=== PATIENT | female | born 1950 | race African-American/Black ===

== ENCOUNTER 2017-12-10 09:34 | Emergency (ER) | payer MEDICARE ==
[~2017-12-10] VITALS: Ht 180.3 cm; Wt 88.5 kg
--- NOTE | 2017-12-10 09:37 | Emergency Room Report ---
History of Present Illness General Chief Complaint: To Be Triaged Source: Patient, Family Member Present Illness HPI 67-year-old female with multiple areas of pain after traumatic fall 4 days ago. Patient has history of diabetes and diabetes neuropathy and "diabetic ulcers on feet." Patient states she was in a wheelchair and when she got up to her feet she fell over and packing right shoulder and right elbow on concrete ground. Complaining of pain to right shoulder, right neck, right hip and right knee and right elbow. Takes baby aspirin daily, not any other anticoagulation Has not taken any medication for pain at home Allergies: Coded Allergies: No Known Allergies (Unverified , 12/10/17) Patient History Past Medical History: DM, other - see HPI Past Surgical History: none Pertinent Family History: none Social History: Denies: smoking, alcohol use, drug use Now: No Immunizations: UTD Reviewed Nursing Documentation: PMH: Agreed, PSxH: Agreed Review of Systems All Other Systems: negative except mentioned in HPI Physical Exam Sp02 EP Interpretation: reviewed, normal General Appearance: normal inspection, well appearing, no apparent distress, alert, GCS 15, non-toxic Head: normocephalic, atraumatic Eyes: bilateral eye PERRL, bilateral eye EOMI ENT: normal ENT inspection, hearing grossly normal, normal pharynx, no angioedema, normal voice, TMs + canals normal, uvula midline, moist mucus membranes Neck: normal inspection, full range of motion, supple, thyroid normal, no meningismus, no bony tend Respiratory: normal inspection, lungs clear, normal breath sounds, no rhonchi, no respiratory distress, no retraction, no accessory muscle use, no wheezing, speaking full sentences Cardiovascular #1: regular rate, rhythm, no edema, no JVD, normal capillary refill Gastrointestinal: normal inspection, normal bowel sounds, non tender, soft, no mass, no peritonitis, non-distended, no guarding, no hernia, no pulsatile mass Genitourinary: no CVA tenderness Musculoskeletal: normal inspection, back normal, normal range of motion, no calf tenderness, pelvis stable, Ludmila's Sign negative, other - Right upper extremity: The right shoulder has full range of motion; there is some tenderness to the superior scapula. Mild tenderness to distal humerus above right elbow. Right elbow with full range of motion. No tenderness to palpation to forearm hand or wrist. There is no obvious trauma or deformity to right upper ext on visual exam. Pelvis is stable, no obvious trauma the pelvis or deformity, however there is some tenderness to proximal femur and range of motion of right hip is limited due to pain. On lateral aspect of the proximal tibia there is a 1 cm abrasion with associated tenderness to patella and proximal tibia. 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, motor strength/tone normal, cerebellar normal, normal gait, speech normal Psychiatric: normal inspection, judgement/insight normal, mood/affect normal, no suicidal/homicidal ideation, no delusions Skin: normal inspection, normal color, no rash Lymphatic: normal inspection, no adenopathy Medical Decision Making Diagnostic Impression: Primary Impression: Fall Qualified Codes: W19.XXXA - Unspecified fall, initial encounter ER Course 67-year-old female with traumatic fall 4 days ago with multiple areas of pain after a fall Fall was accidental and not related to syncope, chest pain or other symptoms. fall likely due to known diabetic neuropathy No acute fx on xrays per Radiology verbal report However on right knee xray incidental finding of ?mass in left femur - patient informed she needs outpatient MRI, followup for eval of ?tumor Recommended Tylenol only for pain with RICE ER course: Patient has remained stable during ED stay. Disposition: Patient is to be discharged to home. Prescriptions given are tylenol Patient is instructed to follow up with their primary care doctor within 5 days. Strict return precautions discussed with patient such as fever, chills, worsening/severe pain, nausea, vomiting, which may indicate severe illness. Patient verbalizes understanding and agrees with plan. Please note that this Emergency Department Report was dictated using [employer] technology software, occasionally this can lead to erroneous entry secondary to interpretation by the dictation equipment Status: improved Disposition: HOME, SELF-CARE LINDSEY GOMEZ M.D. Dec 10, 2017 09:37
--- NOTE | 2017-12-10 10:59 | Diagnostic Imaging Report ---
Indication: Pain Technique: XRAY Shoulder Compl R Comparison: None Findings: There is no acute fracture or dislocation. Rounded densities projecting adjacent to the humeral head noted suggestive of calcific tendinitis. Imaged right lung is grossly clear. No radiopaque foreign body seen. Impression: No acute fracture or dislocation. Findings suggestive of calcific tendinitis.
--- NOTE | 2017-12-10 11:02 | Diagnostic Imaging Report ---
Indication: Pain Technique: XRAY Humerus 2v R Comparison: None Findings: There is no acute fracture or dislocation. Imaged shoulder and elbow joints grossly preserved. No radiopaque foreign body seen. Findings suggestive of calcific tendinitis of the shoulder. Impression: No acute fracture or dislocation.
[2017-12-10 11:36] VITALS: BP 187/80
--- NOTE | 2017-12-10 11:39 | Diagnostic Imaging Report ---
Indication: Pain Technique: XRAY Knee 3v R Comparison: None Findings: There is no acute fracture or dislocation. Mild osteoarthrosis as manifested by joint space narrowing at the medial compartment. Atherosclerotic vascular opacification is noted. No radiopaque foreign body seen. Partially imaged in the left distal femur is a subtle sclerotic lesion with narrow zone of transition. No associated periosteal reaction or cortical abnormality identified. This lesion spans approximately 10 cm. Impression: No evidence of acute fracture or dislocation. Partially visualized lesion in the left distal femur as detailed above possibly representing an enchondroma vs low grade chondrosarcoma. Additional considerations include an area of remote bone infarct. Clinical correlation recommended. More definitive characterization with MRI recommended, which may be obtained on a nonemergent basis. Lesion needs followup. Comparison with prior exams, if available, would be helpful to assess for interval change. Findings were discussed with treating ER physician Dr. De La Cruz.
--- NOTE | 2017-12-10 11:41 | Diagnostic Imaging Report ---
Indication: Pain Technique: XRAY Hip Routine 2v+ R Comparison: None Findings: No acute fracture or dislocation. Symphysis pubis and imaged portions of the right sacroiliac joint unremarkable. Vascular calcifications noted. Clips noted projecting over the midline lower pelvis. Impression: No acute fracture or dislocation.
[2017-12-10] MEDS ORDERED: Tylenol #3 tab (300mg/30mg) ORAL ONE (11:45)
[2017-12-10 11:49] VITALS: BP 187/80
== END 2017-12-10 11:50 | disposition home or self-care (01) ==
LOC: EMR 09:50
DX: E11.40 Type 2 diabetes mellitus with diabetic neuropathy, unspecified (principal); Z79.82 Long term (current) use of aspirin; M25.561 Pain in right knee; M25.551 Pain in right hip; M25.521 Pain in right elbow; M25.511 Pain in right shoulder; W18.30XA Fall on same level, unspecified, initial encounter; Y92.9 Unspecified place or not applicable
CPT/HCPCS: 99284

== ENCOUNTER 2018-02-13 21:07 | Inpatient (IN) | payer MEDICARE ==
[~2018-02-13] VITALS: Ht 175.3 cm; Wt 86.2 kg
[2018-02-13 21:20] VITALS: BP 126/64
[2018-02-13] MEDS ORDERED: Morphine Sulfate 4mg/ml Inj IVP ONE (21:45)
[2018-02-13] MEDS ORDERED: Piperacillin/Tazobactam 3.375 GM in D5W 55 ML IV SCH (21:45)
[2018-02-13] MEDS ORDERED: Vancomycin 1.5gm/D5W 250ml 250 ML IVPB ONE (21:45)
[2018-02-13] MEDS ORDERED: Zosyn 3.375gm inj ONE (22:04)
[2018-02-13 22:15] LABS: HEMOGLOBIN 8.5 G/DL (12.0-16.0); MEAN CORPUSCULAR VOLUME 81 FL (80-99); PLATELET COUNT 275 K/UL (150-450); RED CELL DISTRIBUTION WIDTH 14.4 % (11.6-14.8); WHITE BLOOD COUNT 14.1 K/UL (4.8-10.8)
[2018-02-13 22:26] LABS: ANION GAP 10 mmol/L (5-15); BLOOD UREA NITROGEN 79 mg/dL (7-18); CALCIUM 8.6 MG/DL (8.5-10.1); CARBON DIOXIDE 28 MMOL/L (21-32); CHLORIDE 100 MMOL/L (98-107); CREATININE 3.5 MG/DL (0.55-1.30); POTASSIUM 3.4 MMOL/L (3.5-5.1); SODIUM 138 MMOL/L (136-145)
--- NOTE | 2018-02-13 22:27 | Emergency Room Report ---
History of Present Illness General Chief Complaint: General Complaint Source: Patient Present Illness HPI The patient presents with infection of her left foot. She states that this started yesterday (however the appearance is longer duration than that). She denies any fevers or chills. She has diabetic neuropathy but still feels pain. She also feels pain in her back and head. This is chronic pain that she has and is worsened. She tried taking tramadol earlier today without relief. There is drainage from the foot. She states that her tetanus is up-to-date. She states that her diabetes is relatively well controlled and glucose this morning is 160. The patient does take insulin. The patient states that she has chronic back pain and fibromyalgia. She has degenerative disc disease. There is no trauma, unilateral weakness, fevers, blood thinners, oncologic problems. She denies dysuria at this time. The patient occasionally has headaches. This is not unusual for her. Overall the patient rates the pain he 9/10 and constant. Burning pain in her back and pressure in her head. Allergies: Coded Allergies: No Known Allergies (Unverified , 12/10/17) Patient History Past Medical History: see triage record Social History: Denies: smoking Social History Narrative lives with sister Last Menstrual Period: NA Now: No Reviewed Nursing Documentation: PMH: Agreed; PSxH: Agreed Nursing Documentation-PMH Hx Hypertension: Yes Hx Diabetes: Yes Hx Neurological Problems: No - NEUROPATHY Review of Systems All Other Systems: negative except mentioned in HPI Physical Exam Vital Signs Date Time Temp Pulse Resp B/P (MAP) Pulse Ox O2 Delivery O2 Flow Rate FiO2 02/13/18 21:13 98.2 75 18 126/64 98 Room Air 98.2 Sp02 EP Interpretation: reviewed, normal General Appearance: GCS 15, mild distress - due to pain, Chronically Ill Head: normocephalic, atraumatic Eyes: bilateral eye normal inspection, bilateral eye PERRL ENT: moist mucus membranes Neck: supple Respiratory: lungs clear, normal breath sounds Cardiovascular #1: regular rate, rhythm Cardiovascular #2: 2+ radial (R), 2+ dorsalis pedis (R), 2+ dorsalis pedis (L) Gastrointestinal: normal inspection, normal bowel sounds, non tender, no mass, non-distended Musculoskeletal: normal range of motion, tender - lumbar area, no bony tenderness, SLR minimal bilat without radiation to legs Neurologic: alert, oriented x3, 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 tested, motor strength/tone normal, DTRs symmetric, speech normal, sensory deficit - diabetic neuropathy Psychiatric: mood/affect normal - in pain Skin: warm/dry, other - diabetic ulcer L metatarsal area with pus draining from deep opening some erythema and devitalized tissue with gauze or other foreign material present Medical Decision Making Diagnostic Impression: Primary Impression: Ulcer of foot due to diabetes Qualified Codes: E10.621 - Type 1 diabetes mellitus with foot ulcer; L97.528 - Non-pressure chronic ulcer of other part of left foot with other specified severity Additional Impressions: CARLOS vs CARLOS on CKD Elevated LFTs Chronic lower back pain Qualified Codes: M54.5 - Low back pain; G89.29 - Other chronic pain ER Course Diabetic patient presents with back pain and draining ulcer L foot. Ddx: sepsis , osteomyelitis, cellulitis, DKA, exacerbation of chronic back pain, opiate dependence amongst others. No red flag symptoms, though high risk with diabetes and obvious infection. Evaluation with EKG, CXR, foot x-ray and labs. Analgesia ordered and antibiotics. Wound culture obtained and wound care will be provided. EKG without injury. CXR no infiltrates. Foot with ST defect and some bony changes and possible gas. Labs with elevated WBC and ESR. Renal failure. Elevated CK and LFTs. Improved with pain medicines. Vanco, Zosyn and Flagyl begun. Wound dressed by me after cleansed by tech. Complex patient admitted medically for IV antibiotics (concern over osteomyelitis and gas forming organisms) and monitoring of renal function. Laboratory Tests Test 02/13/18 15:55 02/13/18 21:50 02/14/18 05:20 02/14/18 05:35 Urine Color Pending Urine Appearance Pending Urine pH Pending Urine Specific [place] Pending Urine Protein Pending Urine Glucose (UA) Pending Urine Ketones Pending Urine Occult Blood Pending Urine Nitrite Pending Urine Bilirubin Pending Urine Urobilinogen Pending Urine Leukocyte Esterase Pending White Blood Count 14.1 K/UL (4.8-10.8) H 16.2 K/UL (4.8-10.8) H Red Blood Count 3.20 M/UL (4.20-5.40) L 3.09 M/UL (4.20-5.40) L Hemoglobin 8.5 G/DL (12.0-16.0) L 8.4 G/DL (12.0-16.0) L Hematocrit 26.0 % (37.0-47.0) L 25.4 % (37.0-47.0) L Mean Corpuscular Volume 81 FL (80-99) 82 FL (80-99) Mean Corpuscular Hemoglobin 26.6 PG (27.0-31.0) L 27.1 PG (27.0-31.0) Mean Corpuscular Hemoglobin Concent 32.8 G/DL (32.0-36.0) 32.9 G/DL (32.0-36.0) Red Cell Distribution Width 14.4 % (11.6-14.8) 14.7 % (11.6-14.8) Platelet Count 275 K/UL (150-450) 266 K/UL (150-450) Mean Platelet Volume 8.1 FL (6.5-10.1) 8.1 FL (6.5-10.1) Neutrophils (%) (Auto) % (45.0-75.0) % (45.0-75.0) Lymphocytes (%) (Auto) % (20.0-45.0) % (20.0-45.0) Monocytes (%) (Auto) % (1.0-10.0) % (1.0-10.0) Eosinophils (%) (Auto) % (0.0-3.0) % (0.0-3.0) Basophils (%) (Auto) % (0.0-2.0) % (0.0-2.0) Prothrombin Time 12.0 SEC (9.30-11.50) H Prothrombin Time INR 1.1 (0.9-1.1) PTT 36 SEC (23-33) H Sodium Level 138 MMOL/L (136-145) 136 MMOL/L (136-145) Potassium Level 3.4 MMOL/L (3.5-5.1) L 3.5 MMOL/L (3.5-5.1) Chloride Level 100 MMOL/L (98-107) 99 MMOL/L (98-107) Carbon Dioxide Level 28 MMOL/L (21-32) 25 MMOL/L (21-32) Anion Gap 10 mmol/L (5-15) 12 mmol/L (5-15) Blood Urea Nitrogen 79 mg/dL (7-18) H 82 mg/dL (7-18) H Creatinine 3.5 MG/DL (0.55-1.30) H 3.5 MG/DL (0.55-1.30) H Estimate Glomerular Filtration Rate 15.9 mL/min (>60) 15.9 mL/min (>60) Glucose Level 154 MG/DL (74-106) H 202 MG/DL (74-106) H Lactic Acid Level 0.80 mmol/L (0.66-2.22) Calcium Level 8.6 MG/DL (8.5-10.1) 8.3 MG/DL (8.5-10.1) L Total Bilirubin 1.2 MG/DL (0.2-1.0) H 1.4 MG/DL (0.2-1.0) H Direct Bilirubin 0.9 MG/DL (0.0-0.3) H 1.0 MG/DL (0.0-0.3) H Aspartate Amino Transferase (AST) 657 U/L (15-37) H 431 U/L (15-37) H Alanine Aminotransferase (ALT) 387 U/L (12-78) H 373 U/L (12-78) H Alkaline Phosphatase 456 U/L (46-116) H 453 U/L (46-116) H Total Creatine Kinase 56 U/L (26-308) Troponin I 0.000 ng/mL (0.000-0.056) Pro-B-Type Natriuretic Peptide 2769 pg/mL (0-125) H Total Protein 7.2 G/DL (6.4-8.2) 7.1 G/DL (6.4-8.2) Albumin 1.9 G/DL (3.4-5.0) L 1.9 G/DL (3.4-5.0) L Globulin 5.3 g/dL 5.2 g/dL Albumin/Globulin Ratio 0.4 (1.0-2.7) L 0.4 (1.0-2.7) L Differential Total Cells Counted 100 Neutrophils % (Manual) 83 % (45-75) H Lymphocytes % (Manual) 4 % (20-45) L Monocytes % (Manual) 8 % (1-10) Eosinophils % (Manual) 1 % (0-3) Basophils % (Manual) 0 % (0-2) Band Neutrophils 4 % (0-8) Platelet Estimate Adequate Platelet Morphology Normal Target Cells 1+ Jamey Cells 1+ Acanthocytes (Spur Cells) 1+ Erythrocyte Sedimentation Rate 121 MM/HR (0-30) H Hemoglobin A1c 9.0 % (4.3-6.0) H C-Reactive Protein, Quantitative 28.3 mg/dL (0.00-0.90) H Random Vancomycin Level 21.4 ug/mL Hepatitis A IgM Antibody Pending Hepatitis B Surface Antigen Pending Hepatitis B Core IgM Antibody Pending Hepatitis C Antibody Pending Test 02/14/18 16:25 C-Reactive Protein, Quantitative 14.4 mg/dL (0.00-0.90) H EKG Diagnostic Results Rate: normal Rhythm: NSR ST Segments: no acute changes Rhythm Strip Diag. Results EP Interpretation: yes Rhythm: NSR, no PVC's, no ectopy Chest X-Ray Diagnostic Results Chest X-Ray Diagnostic Results : Chest X-Ray Ordered: Yes # of Views/Limited/Complete: 1 View Indication: Other Interpretation: no consolidation, no effusion, no pneumothorax Impression: Other Electronically Signed by: Navid Robertson MD Other X-Ray Diagnostic Results Other X-Ray Diagnostic Results : X-Ray ordered: L foot # of Views/Limited Vs Complete: 3 View Indication: Other EP Interpretation: Yes Interpretation: no dislocation, no soft tissue swelling, no fractures, other - gas, st defect, possible osteo Impression: Other Electronically Signed by: Navid Robertson MD Last Vital Signs Date Time Temp Pulse Resp B/P (MAP) Pulse Ox O2 Delivery O2 Flow Rate FiO2 02/13/18 22:06 98.2 02/13/18 21:20 88 18 126/64 98 Room Air Disposition: ADMITTED INPATIENT Condition: Serious Referrals: NON PHYSICIAN (PCP) Navid Robertson M.D. Feb 13, 2018 22:27
[2018-02-13 22:35] LABS: INR 1.1 (0.9-1.1)
[2018-02-13 22:44] LABS: ALANINE AMINOTRANSFERASE 387 U/L (12-78); ALBUMIN 1.9 G/DL (3.4-5.0); ALBUMIN/GLOBULIN RATIO 0.4 (1.0-2.7); ALKALINE PHOSPHATASE 456 U/L (46-116); ASPARTATE AMINO TRANSFERASE 657 U/L (15-37); BILIRUBIN,TOTAL 1.2 MG/DL (0.2-1.0); CREATINE KINASE 56 U/L (26-308)
[2018-02-13 22:45] LABS: BILIRUBIN,DIRECT 0.9 MG/DL (0.0-0.3)
[2018-02-13 22:54] VITALS: BP 121/59
[2018-02-13] MEDS ORDERED: ATORVASTATIN CA20 MG ORAL (22:58)
[2018-02-13] MEDS ORDERED: AMLODIPINE BES2.5 MG ORAL (22:58)
[2018-02-13] MEDS ORDERED: CATAPRES0.1 MG ORAL (22:58)
[2018-02-13] MEDS ORDERED: TRAMADOL HCL50 MG ORAL (22:58)
[2018-02-13] MEDS ORDERED: LEVEMIR FL100 UNIT/1 SUBQ (22:58)
[2018-02-13] MEDS ORDERED: NOVOLOG100 UNIT/3 SUBQ (22:58)
[2018-02-14] VITALS (7 sets, daily range): BP systolic 111–138; BP diastolic 59–75
[2018-02-14] MEDS ORDERED: Acetaminophen 650 MG SUPP RECTAL PRN ×2
[2018-02-14] MEDS ORDERED: Mylanta II UD 30ml ORAL PRN
[2018-02-14] MEDS ORDERED: Milk of Magnesia 30ml Ud ORAL PRN
[2018-02-14] MEDS ORDERED: Morphine Sulfate 4mg/ml Inj IVP PRN
[2018-02-14] MEDS: Morphine Sulfate 2mg/ml Inj IVP PRN ×3 (02:09→14:22)
[2018-02-14] MEDS ORDERED: Zosyn 3.375gm inj ONE (05:44)
[2018-02-14] MEDS: Piperacillin/Tazobactam 3.375 GM in NS 110 ML IVPB SCH ×2 (05:53→13:28)
[2018-02-14 07:35] LABS: HEMATOCRIT 25.4 % (37.0-47.0); HEMOGLOBIN 8.4 G/DL (12.0-16.0); MEAN CORPUSCULAR VOLUME 82 FL (80-99); PLATELET COUNT 266 K/UL (150-450); RED BLOOD COUNT 3.09 M/UL (4.20-5.40); RED CELL DISTRIBUTION WIDTH 14.7 % (11.6-14.8); WHITE BLOOD COUNT 16.2 K/UL (4.8-10.8)
[2018-02-14 07:53] LABS: ALANINE AMINOTRANSFERASE 373 U/L (12-78); ALBUMIN 1.9 G/DL (3.4-5.0); ALBUMIN/GLOBULIN RATIO 0.4 (1.0-2.7); ALKALINE PHOSPHATASE 453 U/L (46-116); ANION GAP 12 mmol/L (5-15); ASPARTATE AMINO TRANSFERASE 431 U/L (15-37); BILIRUBIN,TOTAL 1.4 MG/DL (0.2-1.0); BLOOD UREA NITROGEN 82 mg/dL (7-18); CALCIUM 8.3 MG/DL (8.5-10.1); CARBON DIOXIDE 25 MMOL/L (21-32); CHLORIDE 99 MMOL/L (98-107); CREATININE 3.5 MG/DL (0.55-1.30); POTASSIUM 3.5 MMOL/L (3.5-5.1); SODIUM 136 MMOL/L (136-145)
[2018-02-14] MEDS: Heparin 5000 units/ml inj SUBQ SCH ×2 (08:40→20:43)
[2018-02-14] MEDS ORDERED: Docusate 100mg cap ORAL SCH (09:00)
--- NOTE | 2018-02-14 09:46 | Diagnostic Imaging Report ---
Indication: Chest pain Technique: One view of the chest Comparison: none Findings: Inspiration is suboptimal, with some atelectasis of the right lung base present. The heart is borderline enlarged. The aorta is tortuous and calcified. Impression: Right basilar atelectasis Portable and cardiomegaly No acute process otherwise This agrees with the preliminary interpretation provided by the emergency room physician
--- NOTE | 2018-02-14 10:10 | Diagnostic Imaging Report ---
Indication: Pain Technique: 3 views left foot Comparison: none Findings: There is a soft tissue ulcer medial to the first metatarsal phalangeal joint. No underlying osseous erosions. There is evidence of prior bunionectomy and possible first metatarsal osteotomy. 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 There is evidence of possible prior fifth proximal phalangeal head osteotomy. Unusual chronic appearing erosive changes of the terminal tuft of the second distal phalanx are noted. No acute fractures. No dislocations. Impression: Evidence of medial soft tissue ulcer. No definite plain radiographic evidence of osteomyelitis. However, sensitivity of plain radiographs is limited, and MRI should be considered if there is high clinical suspicion Chronic and postsurgical changes, as described. Arch giuseppe ER prelim
--- NOTE | 2018-02-14 11:36 | Consultation ---
Consult Note Assessment/Plan A/ 1) Cellulitis left foot 2) DM foot ulcers 3) DM neuropathy 4) HAV P/ 1) Cont vanco/zosyn. Wound cultures left foot ordered. Rec ID consult 2) Art Ultz ordered 3) MRI left foot ordered 4) Will follow Thank you I returned later in day to see patient. Results of all studies noted. Patient has severe PAD and gas in tissue. Seen by Dr Bedolla. Patient needs angio and may end up on dialysis. She may wish to go back to [place] for her care, but has discussed with daughter and will stay. May have ins issues to stay for treatment. Perform a thorough wash out of her left foot and packed it. Patient was advised that she is at high risk to lose her extremity. She understands. Lawson Ch DPM Feb 14, 2018 11:36
--- NOTE | 2018-02-14 12:42 | History and Physical ---
History of Present Illness General Date patient seen: Feb 14, 2018 Time patient seen: 12:42 Reason for Hospitalization: Diabetic foot ulcer Present Illness HPI 67y/o female with pmh of uncontrolled DM2 on insulin c/b neuropathy, HTN, HLD who presents with L>R foot wounds/ulcers. Pt states she has been having worsening symptoms for the past few days. Notes foul drainage from L foot wound. Notes increased L foot pain. Denies f/c, n/v, d/c, chest pain, SOB, abd pain. In ED, pt noted to have L foot ulcer likely 2/2 diabetic. L foot x-ray showed medial soft tissue ulcer. Labs showed leukocytosis to 14K. Pt given vanco, zosyn and flagyl in ER. Labs also showed SCr 3.5, unknown baseline. Pt also with elevated LFTs. O/n pt noted to be retaining urine, fried placed. Allergies: Coded Allergies: No Known Allergies (Unverified , 12/10/17) Medication History Scheduled Amlodipine Besylate* (Amlodipine Besylate*), 2.5 MG ORAL DAILY, (Reported) Atorvastatin Calcium* (Atorvastatin Calcium*), 20 MG ORAL BEDTIME, (Reported) Clonidine Hcl* (Catapres*), 0.1 MG ORAL EVERY 6 HOURS, (Reported) Insulin Aspart* (Novolog*), 0 SUBQ DAILY, (Reported) Scheduled PRN Tramadol Hcl* (Ultram*), 50 MG ORAL Q6H PRN for For Pain, (Reported) Miscellaneous Medications Insulin Detemir (Levemir Flexpen), 0 SUBQ, (Reported) Patient History History Provided By: Patient, Medical Record Healthcare decision maker Resuscitation status Advanced Directive on File Past Medical/Surgical History Past Medical/Surgical History: (1) Insulin dependent diabetes mellitus (2) Diabetic neuropathy (3) Urinary retention (4) HTN (hypertension) (5) HLD (hyperlipidemia) (6) Chronic lower back pain (7) Fibromyalgia Social History Social History: (1) Pt lives in [place] but visiting family here in [place] Review of Systems Constitutional: Reports: no symptoms Eye: Reports: no symptoms ENT: Reports: no symptoms Respiratory: Reports: no symptoms Cardiovascular: Reports: no symptoms Gastrointestinal: Reports: no symptoms Genitourinary: Reports: no symptoms Musculoskeletal: Reports: back pain, joint pain, joint swelling, muscle pain Skin: Reports: lesions Psychiatric: Reports: no symptoms Neurological: Reports: no symptoms Endocrine: Reports: no symptoms Hematologic/Lymphatic: Reports: no symptoms Physical Exam Physical Exam Narrative General: alert, cooperative, no distress, appears stated age Head: normocephalic, without obvious abnormality, atraumatic Eyes: conjunctivae/corneas clear. PERRL, EOM's intact Throat: lips, mucosa, and tongue normal. MMM Neck: supple, symmetrical, trachea midline, and no JVD Lungs: clear to auscultation bilaterally Heart: regular rate and rhythm, S1, S2 normal, no murmur, click, rub or gallop Abdomen: soft, non-tender, non-distended, bowel sounds normal; no masses or organomegaly Extremities: extremities normal, atraumatic, no cyanosis or edema Pulses: 2+ and symmetric Skin: +L foot ulcer w/ foul discharge, some surrounding erythema/edema/warmth/ TTP, +R foot wound w/ no drainage noted Neurologic: grossly normal, no focal deficits Last 24 Hour Vital Signs Date Time Temp Pulse Resp B/P (MAP) Pulse Ox O2 Delivery O2 Flow Rate FiO2 02/14/18 12:18 97.1 76 20 118/59 99 97.1 02/14/18 10:39 97.4 02/14/18 08:39 75 132/60 02/14/18 08:27 97.4 75 20 132/60 92 97.4 02/14/18 05:36 Room Air 02/14/18 05:30 97.1 70 20 138/64 96 Nasal Cannula 97.1 02/14/18 02:39 96.7 02/14/18 02:19 Room Air 02/14/18 02:09 96.7 02/14/18 01:37 96.7 74 20 124/66 96 Room Air 96.7 02/14/18 01:05 97.8 70 14 111/75 96 Room Air 97.8 02/14/18 00:15 70 14 111/75 96 Room Air 02/13/18 22:54 97.8 71 15 121/59 96 Room Air 97.8 02/13/18 22:32 98.2 02/13/18 22:06 98.2 02/13/18 21:20 98.2 88 18 126/64 98 Room Air 98.2 02/13/18 21:13 98.2 75 18 126/64 98 Room Air 98.2 Intake and Output 02/13/18 02/14/18 19:00 07:00 Intake Total 1155 ml Output Total 0 ml Balance 1155 ml IV Total 1155 ml Output Urine Total 0 ml Laboratory Tests Test 02/13/18 21:50 02/14/18 05:20 White Blood Count 14.1 K/UL (4.8-10.8) H 16.2 K/UL (4.8-10.8) H Red Blood Count 3.20 M/UL (4.20-5.40) L 3.09 M/UL (4.20-5.40) L Hemoglobin 8.5 G/DL (12.0-16.0) L 8.4 G/DL (12.0-16.0) L Hematocrit 26.0 % (37.0-47.0) L 25.4 % (37.0-47.0) L Mean Corpuscular Volume 81 FL (80-99) 82 FL (80-99) Mean Corpuscular Hemoglobin 26.6 PG (27.0-31.0) L 27.1 PG (27.0-31.0) Mean Corpuscular Hemoglobin Concent 32.8 G/DL (32.0-36.0) 32.9 G/DL (32.0-36.0) Red Cell Distribution Width 14.4 % (11.6-14.8) 14.7 % (11.6-14.8) Platelet Count 275 K/UL (150-450) 266 K/UL (150-450) Mean Platelet Volume 8.1 FL (6.5-10.1) 8.1 FL (6.5-10.1) Neutrophils (%) (Auto) % (45.0-75.0) % (45.0-75.0) Lymphocytes (%) (Auto) % (20.0-45.0) % (20.0-45.0) Monocytes (%) (Auto) % (1.0-10.0) % (1.0-10.0) Eosinophils (%) (Auto) % (0.0-3.0) % (0.0-3.0) Basophils (%) (Auto) % (0.0-2.0) % (0.0-2.0) Prothrombin Time 12.0 SEC (9.30-11.50) H Prothromb Time International Ratio 1.1 (0.9-1.1) Activated Partial Thromboplast Time 36 SEC (23-33) H Sodium Level 138 MMOL/L (136-145) 136 MMOL/L (136-145) Potassium Level 3.4 MMOL/L (3.5-5.1) L 3.5 MMOL/L (3.5-5.1) Chloride Level 100 MMOL/L (98-107) 99 MMOL/L (98-107) Carbon Dioxide Level 28 MMOL/L (21-32) 25 MMOL/L (21-32) Anion Gap 10 mmol/L (5-15) 12 mmol/L (5-15) Blood Urea Nitrogen 79 mg/dL (7-18) H 82 mg/dL (7-18) H Creatinine 3.5 MG/DL (0.55-1.30) H 3.5 MG/DL (0.55-1.30) H Estimat Glomerular Filtration Rate 15.9 mL/min (>60) 15.9 mL/min (>60) Glucose Level 154 MG/DL (74-106) H 202 MG/DL (74-106) H Lactic Acid Level 0.80 mmol/L (0.66-2.22) Calcium Level 8.6 MG/DL (8.5-10.1) 8.3 MG/DL (8.5-10.1) L Total Bilirubin 1.2 MG/DL (0.2-1.0) H 1.4 MG/DL (0.2-1.0) H Direct Bilirubin 0.9 MG/DL (0.0-0.3) H 1.0 MG/DL (0.0-0.3) H Aspartate Amino Transf (AST/SGOT) 657 U/L (15-37) H 431 U/L (15-37) H Alanine Aminotransferase (ALT/SGPT) 387 U/L (12-78) H 373 U/L (12-78) H Alkaline Phosphatase 456 U/L (46-116) H 453 U/L (46-116) H Total Creatine Kinase 56 U/L (26-308) Troponin I 0.000 ng/mL (0.000-0.056) Pro-B-Type Natriuretic Peptide 2769 pg/mL (0-125) H Total Protein 7.2 G/DL (6.4-8.2) 7.1 G/DL (6.4-8.2) Albumin 1.9 G/DL (3.4-5.0) L 1.9 G/DL (3.4-5.0) L Globulin 5.3 g/dL 5.2 g/dL Albumin/Globulin Ratio 0.4 (1.0-2.7) L 0.4 (1.0-2.7) L Differential Total Cells Counted 100 Neutrophils % (Manual) 83 % (45-75) H Lymphocytes % (Manual) 4 % (20-45) L Monocytes % (Manual) 8 % (1-10) Eosinophils % (Manual) 1 % (0-3) Basophils % (Manual) 0 % (0-2) Band Neutrophils 4 % (0-8) Platelet Estimate Adequate Platelet Morphology Normal Target Cells 1+ Jamey Cells 1+ Acanthocytes 1+ Erythrocyte Sedimentation Rate 121 MM/HR (0-30) H Hemoglobin A1c 9.0 % (4.3-6.0) H C-Reactive Protein, Quantitative 28.3 mg/dL (0.00-0.90) H Random Vancomycin Level 21.4 ug/mL Height (Feet): 5 Height (Inches): 11.00 Weight (Pounds): 190 Medications Current Medications Medications (Trade) Dose Ordered Sig/Marlena Route PRN Reason Start Time Stop Time Status Last Admin Dose Admin Acetaminophen (Tylenol) 650 mg Q4H PRN ORAL Mild Pain (Pain Scale 1-3) 02/14/18 00:00 03/16/18 00:00 Acetaminophen (Tylenol) 650 mg Q4H PRN ORAL fever 02/14/18 00:00 03/16/18 00:00 Acetaminophen (Tylenol) 650 mg Q4H PRN RECTAL Mild Pain (Pain Scale 1-3) 02/14/18 00:00 03/16/18 00:00 Acetaminophen (Tylenol) 650 mg Q4H PRN RECTAL fever 02/14/18 00:00 03/16/18 00:00 Al Hydroxide/Mg Hydroxide (Mylanta II) 30 ml Q6H PRN ORAL dyspepsia 02/14/18 00:00 03/16/18 00:00 Amlodipine Besylate (Norvasc) 2.5 mg DAILY ORAL 02/14/18 09:00 03/16/18 08:59 02/14/18 08:39 Atorvastatin Calcium (Lipitor) 20 mg BEDTIME ORAL 02/14/18 21:00 03/16/18 20:59 Bisacodyl (Dulcolax) 10 mg HSPRN PRN RECTAL Constipation 02/14/18 00:00 03/16/18 00:00 Clonidine HCl (Catapres Tab) 0.1 mg Q6H PRN ORAL sbp>160 02/14/18 00:00 03/16/18 00:00 Dextrose (Dextrose 50%) STAT PRN IV Hypoglycemia 02/14/18 00:00 03/16/18 00:00 Diphenhydramine HCl (Benadryl) 25 mg Q6H PRN ORAL Itching/Pruritis 02/14/18 00:00 03/16/18 00:00 Docusate Sodium (Colace) 100 mg EVERY 12 HOURS ORAL 02/14/18 09:00 03/16/18 08:59 02/14/18 08:40 Heparin Sodium (Porcine) (Heparin 5000 units/ml) 5,000 units EVERY 12 HOURS SUBQ 02/14/18 09:00 03/16/18 08:59 02/14/18 08:40 Magnesium Hydroxide (Mom) 30 ml HSPRN PRN ORAL Constipation 02/14/18 00:00 03/16/18 00:00 Morphine Sulfate (Morphine Sulfate) 2 mg Q3H PRN IVP Moderate Pain (Pain Scale 4-6) 02/14/18 00:00 02/21/18 00:00 02/14/18 10:39 Morphine Sulfate (Morphine Sulfate) 4 mg Q3H PRN IVP Severe Pain (Pain Scale 7-10) 02/14/18 00:00 02/21/18 00:00 Ondansetron HCl (Zofran) 4 mg Q6H PRN IVP Nausea & Vomiting 02/14/18 00:00 03/16/18 00:00 Piperacillin Sod/ Tazobactam Sod 3.375 gm/Sodium Chloride 110 ml @ 27.5 mls/hr EVERY 8 HOURS IVPB 02/14/18 06:00 02/19/18 05:59 02/14/18 05:53 Vancomycin HCl (Vanco rx to dose) 1 ea DAILY PRN MISC Per rx protocol 02/14/18 00:15 03/16/18 00:14 Assessment/Plan Problem List: (1) L>R foot diabetic ulcers (2) Cellulitis of left lower extremity ICD Codes: L03.116 - Cellulitis of left lower limb SNOMED: 884215167 (3) CARLOS vs CARLOS on CKD (4) Elevated LFTs ICD Codes: R79.89 - Other specified abnormal findings of blood chemistry SNOMED: 509184288, 196669784 (5) Urinary retention Assessment & Plan: Possibly 2/2 neurogenic bladder given diabetes ICD Codes: R33.9 - Retention of urine, unspecified SNOMED: 881116792 (6) Insulin dependent diabetes mellitus ICD Codes: E11.9 - Type 2 diabetes mellitus without complications; Z79.4 - technician terminal and repeater (current) use of insulin SNOMED: 49645779 (7) Diabetic neuropathy ICD Codes: E11.40 - Type 2 diabetes mellitus with diabetic neuropathy, unspecified SNOMED: 89444765, 724026715, 964141679 (8) HTN (hypertension) ICD Codes: I10 - Essential (primary) hypertension SNOMED: 26720299 (9) HLD (hyperlipidemia) ICD Codes: E78.5 - Hyperlipidemia, unspecified SNOMED: 09109368 Status: stable Assessment/Plan Admit inpt Podiatry and ID consulted Empiric IV vanco and zosyn for now F/u cultures Trend CBC Wound care per podiatry Check MRI L foot Check arterial duplex BLE Levemir 30U daily ERYN Check A1C Hold statin given elevated LFTs Check hepatitis panel, U/S abd Trend LFTs Renal consulted given elevated SCr, unclear baseline Check U/A, urine lytes, renal U/S Cont fried given urinary retention Trend BMP DVT ppx: HSQ, SCDs D/w pt, RN, SW/CM, ID, podiatry regarding mgmt and dispo nAgel Corbin M.D. Feb 14, 2018 12:42
--- NOTE | 2018-02-14 13:39 | Infectious Diseases Prog Note ---
Assessment/Plan Assessment/Plan Full consult dictated: A) 1) left foot wound infection/ulcer infection/cellulitis, ? abscess, ? osteo, leukocytosis, ? sepsis 2) pmg noted 3) allergies - nkda P) 1) zosyn and vancomycin 2) check labs, wc, MRI 3) thank you Subjective Allergies: Coded Allergies: No Known Allergies (Unverified , 12/10/17) Objective Vital Signs Last 24 Hour Vital Signs Date Time Temp Pulse Resp B/P (MAP) Pulse Ox O2 Delivery O2 Flow Rate FiO2 02/14/18 12:18 97.1 76 20 118/59 99 97.1 02/14/18 11:09 97.1 02/14/18 10:39 97.4 02/14/18 08:39 75 132/60 02/14/18 08:27 97.4 75 20 132/60 92 97.4 02/14/18 05:36 Room Air 02/14/18 05:30 97.1 70 20 138/64 96 Nasal Cannula 97.1 02/14/18 02:19 Room Air 02/14/18 02:09 96.7 02/14/18 01:37 96.7 74 20 124/66 96 Room Air 96.7 02/14/18 01:05 97.8 70 14 111/75 96 Room Air 97.8 02/14/18 00:15 70 14 111/75 96 Room Air 02/13/18 22:54 97.8 71 15 121/59 96 Room Air 97.8 02/13/18 22:32 98.2 02/13/18 22:06 98.2 02/13/18 21:20 98.2 88 18 126/64 98 Room Air 98.2 02/13/18 21:13 98.2 75 18 126/64 98 Room Air 98.2 Height (Feet): 5 Height (Inches): 11.00 Weight (Pounds): 190 Laboratory Tests Test 02/13/18 21:50 02/14/18 05:20 White Blood Count 14.1 K/UL (4.8-10.8) H 16.2 K/UL (4.8-10.8) H Red Blood Count 3.20 M/UL (4.20-5.40) L 3.09 M/UL (4.20-5.40) L Hemoglobin 8.5 G/DL (12.0-16.0) L 8.4 G/DL (12.0-16.0) L Hematocrit 26.0 % (37.0-47.0) L 25.4 % (37.0-47.0) L Mean Corpuscular Volume 81 FL (80-99) 82 FL (80-99) Mean Corpuscular Hemoglobin 26.6 PG (27.0-31.0) L 27.1 PG (27.0-31.0) Mean Corpuscular Hemoglobin Concent 32.8 G/DL (32.0-36.0) 32.9 G/DL (32.0-36.0) Red Cell Distribution Width 14.4 % (11.6-14.8) 14.7 % (11.6-14.8) Platelet Count 275 K/UL (150-450) 266 K/UL (150-450) Mean Platelet Volume 8.1 FL (6.5-10.1) 8.1 FL (6.5-10.1) Neutrophils (%) (Auto) % (45.0-75.0) % (45.0-75.0) Lymphocytes (%) (Auto) % (20.0-45.0) % (20.0-45.0) Monocytes (%) (Auto) % (1.0-10.0) % (1.0-10.0) Eosinophils (%) (Auto) % (0.0-3.0) % (0.0-3.0) Basophils (%) (Auto) % (0.0-2.0) % (0.0-2.0) Prothrombin Time 12.0 SEC (9.30-11.50) H Prothromb Time International Ratio 1.1 (0.9-1.1) Activated Partial Thromboplast Time 36 SEC (23-33) H Sodium Level 138 MMOL/L (136-145) 136 MMOL/L (136-145) Potassium Level 3.4 MMOL/L (3.5-5.1) L 3.5 MMOL/L (3.5-5.1) Chloride Level 100 MMOL/L (98-107) 99 MMOL/L (98-107) Carbon Dioxide Level 28 MMOL/L (21-32) 25 MMOL/L (21-32) Anion Gap 10 mmol/L (5-15) 12 mmol/L (5-15) Blood Urea Nitrogen 79 mg/dL (7-18) H 82 mg/dL (7-18) H Creatinine 3.5 MG/DL (0.55-1.30) H 3.5 MG/DL (0.55-1.30) H Estimat Glomerular Filtration Rate 15.9 mL/min (>60) 15.9 mL/min (>60) Glucose Level 154 MG/DL (74-106) H 202 MG/DL (74-106) H Lactic Acid Level 0.80 mmol/L (0.66-2.22) Calcium Level 8.6 MG/DL (8.5-10.1) 8.3 MG/DL (8.5-10.1) L Total Bilirubin 1.2 MG/DL (0.2-1.0) H 1.4 MG/DL (0.2-1.0) H Direct Bilirubin 0.9 MG/DL (0.0-0.3) H 1.0 MG/DL (0.0-0.3) H Aspartate Amino Transf (AST/SGOT) 657 U/L (15-37) H 431 U/L (15-37) H Alanine Aminotransferase (ALT/SGPT) 387 U/L (12-78) H 373 U/L (12-78) H Alkaline Phosphatase 456 U/L (46-116) H 453 U/L (46-116) H Total Creatine Kinase 56 U/L (26-308) Troponin I 0.000 ng/mL (0.000-0.056) Pro-B-Type Natriuretic Peptide 2769 pg/mL (0-125) H Total Protein 7.2 G/DL (6.4-8.2) 7.1 G/DL (6.4-8.2) Albumin 1.9 G/DL (3.4-5.0) L 1.9 G/DL (3.4-5.0) L Globulin 5.3 g/dL 5.2 g/dL Albumin/Globulin Ratio 0.4 (1.0-2.7) L 0.4 (1.0-2.7) L Differential Total Cells Counted 100 Neutrophils % (Manual) 83 % (45-75) H Lymphocytes % (Manual) 4 % (20-45) L Monocytes % (Manual) 8 % (1-10) Eosinophils % (Manual) 1 % (0-3) Basophils % (Manual) 0 % (0-2) Band Neutrophils 4 % (0-8) Platelet Estimate Adequate Platelet Morphology Normal Target Cells 1+ Jamey Cells 1+ Acanthocytes 1+ Erythrocyte Sedimentation Rate 121 MM/HR (0-30) H Hemoglobin A1c 9.0 % (4.3-6.0) H C-Reactive Protein, Quantitative 28.3 mg/dL (0.00-0.90) H Random Vancomycin Level 21.4 ug/mL Current Medications Medications (Trade) Dose Ordered Sig/Marlena Route PRN Reason Start Time Stop Time Status Last Admin Dose Admin Acetaminophen (Tylenol) 650 mg Q4H PRN ORAL Mild Pain (Pain Scale 1-3) 02/14/18 00:00 03/16/18 00:00 Acetaminophen (Tylenol) 650 mg Q4H PRN ORAL fever 02/14/18 00:00 03/16/18 00:00 Acetaminophen (Tylenol) 650 mg Q4H PRN RECTAL Mild Pain (Pain Scale 1-3) 02/14/18 00:00 03/16/18 00:00 Acetaminophen (Tylenol) 650 mg Q4H PRN RECTAL fever 02/14/18 00:00 03/16/18 00:00 Al Hydroxide/Mg Hydroxide (Mylanta II) 30 ml Q6H PRN ORAL dyspepsia 02/14/18 00:00 03/16/18 00:00 Amlodipine Besylate (Norvasc) 2.5 mg DAILY ORAL 02/14/18 09:00 03/16/18 08:59 02/14/18 08:39 Atorvastatin Calcium (Lipitor) 20 mg BEDTIME ORAL 02/14/18 21:00 03/16/18 20:59 Bisacodyl (Dulcolax) 10 mg HSPRN PRN RECTAL Constipation 02/14/18 00:00 03/16/18 00:00 Clonidine HCl (Catapres Tab) 0.1 mg Q6H PRN ORAL sbp>160 02/14/18 00:00 03/16/18 00:00 Dextrose (Dextrose 50%) STAT PRN IV Hypoglycemia 02/14/18 00:00 03/16/18 00:00 Diphenhydramine HCl (Benadryl) 25 mg Q6H PRN ORAL Itching/Pruritis 02/14/18 00:00 03/16/18 00:00 Docusate Sodium (Colace) 100 mg EVERY 12 HOURS ORAL 02/14/18 09:00 03/16/18 08:59 02/14/18 08:40 Heparin Sodium (Porcine) (Heparin 5000 units/ml) 5,000 units EVERY 12 HOURS SUBQ 02/14/18 09:00 03/16/18 08:59 02/14/18 08:40 Magnesium Hydroxide (Mom) 30 ml HSPRN PRN ORAL Constipation 02/14/18 00:00 03/16/18 00:00 Morphine Sulfate (Morphine Sulfate) 2 mg Q3H PRN IVP Moderate Pain (Pain Scale 4-6) 02/14/18 00:00 02/21/18 00:00 02/14/18 10:39 Morphine Sulfate (Morphine Sulfate) 4 mg Q3H PRN IVP Severe Pain (Pain Scale 7-10) 02/14/18 00:00 02/21/18 00:00 Ondansetron HCl (Zofran) 4 mg Q6H PRN IVP Nausea & Vomiting 02/14/18 00:00 03/16/18 00:00 Piperacillin Sod/ Tazobactam Sod 3.375 gm/Sodium Chloride 110 ml @ 27.5 mls/hr EVERY 8 HOURS IVPB 02/14/18 06:00 02/19/18 05:59 02/14/18 13:28 Vancomycin HCl (Vanco rx to dose) 1 ea DAILY PRN MISC Per rx protocol 02/14/18 00:15 03/16/18 00:14 CHAPITO DENISE Feb 14, 2018 13:39
--- NOTE | 2018-02-14 14:18 | Diagnostic Imaging Report ---
APPROVED REPORT CPT Code: 57239 Symptoms Comments: Pain RIGHT LEG: Common femoral artery waveform analysis is within normal limits at rest. Color flow duplex sonography mild reveals calcification throughout the superficial femoral artery. A mild (30-50%) stenosis is seen in the proximal superficial femoral artery. There is no evidence of occlusion within this segment. The tibioperoneal trunk is patent. The anterior, peroneal, distal posterior and dorsalis pedis arteries are also mildly calcified. The Doppler tibial artery waveform analysis is compatible with minimal ischemia at rest. LEFT LEG: Color flow duplex sonography reveals a mild (30-50%) stenosis in the common femoral artery. The Imaging also reveals an occlusion in the mid superficial femoral artery. Reconstitution is seen in the distal superficial femoral artery. The popliteal artery is patent. The tibioperoneal trunk was not well visualized. The posterior tibial, anterior tibial and dorsalis pedis arteries are also mildly calcified. A mild (30-50%) stenosis is seen also in the proximal dorsalis pedis artery. The Doppler tibial artery waveform analysis is compatible with severe ischemia at rest.
[2018-02-14] MEDS: Levemir Flexpen SUBQ SCH ×2 (16:18→16:35)
[2018-02-14] MEDS: NovoLOG Insulin Flexpen SUBQ SCH ×2 (16:27→20:43)
--- NOTE | 2018-02-14 16:42 | Consultation ---
Consult Note Consult Note asked to eval for renal failure The patient presents with infection of her left foot. She states that she started yesterday however the appearance is longer than that. She denies any fevers or chills. She has diabetic neuropathy but still feels pain. She also feels pain in her back and had. This is chronic pain that she has is worsened. She tried taking tramadol earlier today without relief. There is drainage from the foot. She states that her tetanus is up-to-date. She states that her diabetes is relatively well controlled and glucose this morning is 160. The patient does take insulin. The patient states that she has chronic back pain and fibromyalgia. She has degenerative disc disease. There is no trauma, unilateral weakness, fevers, blood thinners, oncologic problems. She denies dysuria at this time. The patient occasionally has headaches. This is not unusual for her. Overall the patient rates the pain he 29/10 and constant. Burning pain in her back and pressure in her head. Assessment/Plan left foot wound infection/ulcer infection/cellulitis, ? abscess, ? osteo, leukocytosis, ? sepsis Renal failure likely acute on Chronic Urinary retention: 500cc Urine after fried Anemia , etiology?? DM Elevated LFTs HypoAlbuminemia ? NS Keep BP and BS in check slow hydrate avoid Nephrotoxics monitor renal parameters per orders TOLU GRIFFITH Feb 14, 2018 16:42
[2018-02-14] MEDS: Docusate 100mg cap ORAL SCH (17:15)
--- NOTE | 2018-02-14 17:17 | Diagnostic Imaging Report ---
Abnormal: Foot pain, infection, open wound ball of foot Technique: Sagittal, axial, and coronal T1 and fast spin echo and fast spin echo STIR images obtained of the forefoot. Comparison: Reference made to plain radiograph 02/13/2018 Findings: Motion artifact results in some image degradation Markedly increased STIR signal is seen within the first proximal phalanx. There is subtle decreased T1 signal, particularly at the base of the first proximal phalanx. A signal defect within the medullary space paralleling the bone is of uncertain significance, may represent an old surgical screw hole given plain radiographic evidence of prior first metatarsal osteotomy. There is subtle increased STIR signal and subtle decreased T1 signal involving the first metatarsal head. Normal T1 and STIR signal are seen in the distal phalanx There is considerable edema of the surrounding soft tissues. There is a suggestion of a discrete fluid collection over the dorsum of the first metatarsal phalangeal joint. This measures approximately 3.8 cm in length by 0.7 cm deep by 2.6 cm transverse. This also extends medially to the joint. There is also suggestion of a soft tissue ulceration at the plantar aspect of the soft tissues medial to the metatarsal phalangeal joint. Signal voids which may represent gas bubbles are seen in the soft tissues of the dorsal and plantar soft tissues adjacent to the first metatarsal. No other significant marrow signal abnormality is demonstrated. In addition to the edema of the great toe, there is more generalized soft tissue edema, primarily of the subcutaneous fat but also extending into the musculotendinous compartments diffusely and circumferentially along the forefoot. Impression: Somewhat limited exam, due to motion artifact Abnormal STIR and T1 signal within the first proximal phalanx and head of the first metatarsal. This is worrisome for osteomyelitis Evidence of soft tissue cellulitis of the first digit with an inferomedial soft tissue ulcer adjacent to the first metatarsophalangeal joint. More generalized edema of the forefoot also is demonstrated. More localized fluid collection dorsal to the first metatarsophalangeal joint could represent a small soft tissue abscess Small signal voids in the soft tissues adjacent to the first metatarsal could represent gas bubbles and therefore raise concern for infection with gas-forming organism Findings discussed by phone with Dr. Ortiz at the time of interpretation
[2018-02-14] MEDS: traMADol 50mg tab ORAL PRN (18:16)
[2018-02-14] MEDS: Piperacillin/Tazobactam 3.375 GM in D5W 110 ML IVPB SCH (21:50)
--- NOTE | 2018-02-14 22:16 | Consultation ---
DATE OF CONSULTATION: 02/14/2018 INFECTIOUS DISEASES CONSULTATION ATTENDING PHYSICIAN: Karma Chen M.D. REFERRING PHYSICIAN: Angel Corbin M.D. REASON FOR CONSULTATION: Infected left foot, infected wound ulcer, cellulitis, possible abscess, possible osteo, leukocytosis, and possible sepsis. CHIEF COMPLAINT: The patient's chief complaint coming in to the hospital is infected wound to the left foot. HISTORY OF PRESENT ILLNESS: This is a 67-year-old female, who has history of diabetes mellitus. The patient presents with left foot infected wound in the base of the left foot and side of the left foot. The patient has an infected wound that is malodorous. The patient has cellulitis and possible abscess and discussed with nursing staff, there was drainage of pus. The patient also has osteo. X-ray showed no definitive evidence of osteo. MRI has been ordered. Infectious Diseases consultation requested for antibiotic management. Wound cultures pending. The patient is on vancomycin and Zosyn. The patient states she has had this for at least several days. PAST MEDICAL HISTORY: Includes history of the following. The patient has past medical history of diabetes mellitus, history of diabetic neuropathy, history of chronic pain syndrome, I believe . She has in addition diabetes. She has history of hypertension, neuropathy, and diabetes. She states she has had wounds in the past. She does have chronic back pain and fibromyalgia also. History of hyperlipidemia. She is on statin at this time. MEDICATIONS: Upon reviewing the MAR, she is on the following medications. She is on atorvastatin, heparin, docusate, amlodipine, Zosyn, vancomycin, acetaminophen, morphine, bisacodyl, aluminum hydroxide, and clonidine. Antibiotics, vancomycin and Zosyn. Outside medications noted and reconciliated. ALLERGIES: No known drug allergies. No antibiotic allergies. SOCIAL HISTORY: Negative for smoking, alcohol, or drug abuse. FAMILY HISTORY: Noncontributory. REVIEW OF SYSTEMS: CONSTITUTIONAL: Generalized weakness and fatigue. No fever, chills, night sweats, or weight loss. HEAD AND NECK: No headache, change in vision, thrush, or dysphagia. CARDIAC: No chest pain or palpitations. GASTROINTESTINAL: No nausea, vomiting, or diarrhea. GENITOURINARY: She has a Kenney. PULMONARY: No congestion, shortness of breath, hemoptysis, or secretions. SKIN: No rash. NEUROLOGIC: No seizures. EXTREMITIES: She has left foot pain and swelling. PHYSICAL EXAMINATION: VITAL SIGNS: As follows. Temperature is 97.1 degrees, pulse rate 76, respiratory rate 20, blood pressure 118/59, and saturation is 99%. GENERAL: Alert and responsive, no acute distress. HEAD AND NECK: Oral exam, no thrush. Eye exam, no icterus. Normocephalic. No facial droop. No neck stiffness. Neck is supple. LUNGS: Clear bilaterally. No rhonchi or rales. HEART: Regular. No obvious gallop or murmur. ABDOMEN: Soft. Positive bowel sounds. Nontender. GENITOURINARY: She does have a Kenney. Urine is slightly cloudy. SKIN: No rash. MUSCULOSKELETAL: No effusion. Legs are without cellulitis. PERIPHERAL VASCULAR: Her left foot has no gangrene, but she does have infected left foot ulcer in the base of the foot and the medial side of the foot. That is a malodorous wound and ulcer certainly infected and discussed with nursing staff there was drainage previously, which was cultured. NEUROLOGICAL: Intact. LINES: Line sites without phlebitis. LABORATORY AND DIAGNOSTIC DATA: Laboratory data is as follows. White count 16.2 and hemoglobin 8.4. Creatinine is 3.5. She is not dialysis. Hemoglobin A1c is 9.0. LFTs were elevated. Vancomycin level 21.4. Wound culture is pending. X-ray of the foot showed no evidence of osteo. MRI has been ordered. Chest x-ray showed atelectasis. No consolidation mentioned. UA will be ordered. Wound culture is pending. ASSESSMENT AND PLAN: 1. The patient has left foot infected wound and ulcer with elevated white count questionable early sepsis. The patient has possible abscess. She also has cellulitis with swelling of the left foot. She could have underlying osteo. Continue vancomycin and Zosyn. Check wound culture. Watch creatinine closely on antibiotics. The patient is being followed by Podiatry. The patient may need debridement especially with elevated white count. Again, check MRI. Continue vancomycin and Zosyn. Check followup laboratories and wound culture. 2. Acute kidney injury, elevated creatinine. The patient had a Kenney placed. We will watch creatinine closely. 3. Elevated liver function tests and alkaline phosphatase. We will check ultrasound and hepatitis panel. 4. Diabetes. 5. Hypertension. 6. Questionable hyperlipidemia. 7. Anemia. 8. Questionable chronic kidney disease. 9. Acute renal failure. 10. Neuropathy. 11. Back pain. 12. Pain management. 13. Blood sugar and blood pressure treatment for diabetes and hypertension per primary. 14. Diabetes and hypertension. 15. No allergies. 16. Social history negative. 17. MAR was noted. 18. Case discussed with RN. 19. Notes were reviewed. 20. Family history noncontributory. 21. Please continue other care per Dr. Ortiz and consultants and Podiatry followup. Abdirashid Lovell M.D. DR: Karson JOB#: [id number] CC:
[2018-02-15] VITALS: BP 118/60
--- NOTE | 2018-02-15 01:31 | Consultation ---
DATE OF CONSULTATION: 02/14/2018 CONSULTING PHYSICIAN: Lawson Ch D.P.M. REQUESTING PHYSICIAN: Angel Corbin M.D. REASON FOR CONSULTATION: Cellulitis and diabetic foot wounds of left lower extremity. HISTORY OF PRESENT ILLNESS: The patient is a 67-year-old female, who is admitted to [facility] on 02/13/2018 for diabetic foot ulcer and infection. The patient states that she is here visiting and during her stay, noticed that she was having extreme back pain. Due to this reason, she sought emergent care for her back issues. During her emergency room evaluation, it was noted that she had a foul-smelling infection coming from her left foot. She was subsequently admitted for this reason. The patient denies any fevers, chills, nausea, or vomiting and notes severe back pain. PAST MEDICAL HISTORY: Significant for diabetes mellitus, hypertension, and hyperlipidemia. MEDICATIONS: Per JAN. ALLERGIES: She has no known drug allergies. FAMILY HISTORY: Noncontributory. SOCIAL HISTORY: Noncontributory. REVIEW OF SYSTEMS: HEENT: The patient denies any headaches, blurred vision, or ringing in the ears. CARDIOVASCULAR: The patient denies any chest pain or shortness of breath. GENITOURINARY: The patient denies any urgency, frequency, burning upon urination, or hematuria. GASTROINTESTINAL: The patient denies any constipation, diarrhea, or blood in the stool. PHYSICAL EXAMINATION: VITALS SIGNS: Temperature is 97.4, pulse is 75, respiration rate is 20, blood pressure is 132/60, and saturating 92% on room air. EXTREMITIES: Lower extremity vascular, nonpalpable pedal pulses noted bilaterally. Feet are equally warm. There is no edema noted. No cyanosis noted. DERMATOLOGICAL: Right foot, there is necrosis noted on the plantar aspect of the right foot at the first metatarsophalangeal joint. No signs of acute infection are noted. Most likely, a diffuse hyperkeratosis. Possible underlying left foot open wound is noted on the medial aspect of the left first metatarsophalangeal joint. There is greg purulence noted from the site. Malodor is also noted from the site. The wound appears boggy. NEUROLOGICAL: Protective threshold is absent. Achilles deep tendon reflexes are 2+ bilateral. There is no spasticity noted. MUSCULOSKELETAL: There is 4/5 muscle strength noted in anterolateral and posterior muscle groups of bilateral lower extremities. Severe bunion deformities are noted, bilateral. LABORATORY DATA: White blood cell count is 16.2, hemoglobin and hematocrit is 8.4 and 25.4, and platelet count is 266,000. Sedimentation rate is 121. Potassium is 3.5, BUN is 82, and creatinine is 33.5. Hemoglobin A1c is 9. Glucose is 202. C-reactive protein is 28.3. Albumin is 1.9. Lactic acid is 0.80. INR is 1.1. IMAGING: Foot x-rays done. Noted there is no evidence of osteomyelitis and no acute changes to the left foot. ASSESSMENT: 1. Cellulitis, left foot. 2. Diabetic foot ulcers, bilateral. 3. Diabetic neuropathy. 4. Hallux abductovalgus. PLAN: 1. Continue vancomycin and Zosyn. Wound culture of the left foot were ordered. Recommend Infectious Disease consult by Dr. Lovell, who has been contacted. 2. Arterial ultrasound was ordered. 3. MRI of the left foot without contrast is ordered. 4. We will follow. Thank you for the courtesy of consultation. We will follow. Subsequently later in the day, I have returned due to MRI findings and arterial ultrasound findings, I was contacted that there was gas in the tissue in the left foot. I returned immediately back to [facility]. I have discussed the case with Dr. Bedolla and Dr. Ortiz. It was noted that the patient has severe peripheral arterial disease as well as gas in the tissue noted on the MRI. Dr. Tucker discussed with the patient that the patient requires angiogram and angioplasty, but may end up on dialysis due to her kidney function. Also, the other underlying issue is that the patient is visiting from [place] and wishes to return in a week back to [place] for her medical treatment. I discussed with the patient her condition and treatment course. The patient is in a limb-threatening situation. I advised that I will at this point immediately washout the foot at bedside and pack the wound so that it will help by time. We will continue the IV antibiotics. The washout was performed and the wound was packed. The patient tolerated it well. I advised that the patient will require angios in order to heal her wounds and infection. The patient understands and wishes to get her care here and does not not wish to wait until next week to return to [place] to have taken care of it in [place]. She understands that this is a time sensitive matter. We will follow this patient during her hospital course. Lawson Ch D.P.M. DR: JOSE JOB#: [id number] CC:
[2018-02-15] MEDS: traMADol 50mg tab ORAL PRN ×4 (03:00→20:18)
[2018-02-15 04:11] VITALS: BP 113/51
[2018-02-15 05:54] LABS: APPEARANCE,URINE CLEAR; BILIRUBIN, URINE NEGATIVE (NEGATIVE); GLUCOSE, URINE (UA) 1+ (NEGATIVE); KETONES,URINE NEGATIVE (NEGATIVE); NITRITE,URINE NEGATIVE (NEGATIVE); PH,URINE 5 (4.5-8.0); PROTEIN,URINE 3+ (NEGATIVE); UROBILINOGEN,URINE NORMAL MG/DL (0.0-1.0)
[2018-02-15] MEDS: NovoLOG Insulin Flexpen SUBQ SCH ×4 (05:57→20:34)
[2018-02-15 06:14] LABS: COLOR,URINE YELLOW; LEUKOCYTE ESTERASE ,URINE 2+ (NEGATIVE)
[2018-02-15 08:00] VITALS: BP 125/56
[2018-02-15] MEDS: Docusate 100mg cap ORAL SCH ×3 (09:42→17:48)
[2018-02-15] MEDS: Piperacillin/Tazobactam 3.375 GM in D5W 110 ML IVPB SCH ×2 (09:43→22:14)
[2018-02-15] MEDS: Heparin 5000 units/ml inj SUBQ SCH ×2 (09:56→20:33)
[2018-02-15 09:57] LABS: HEMATOCRIT 25.1 % (37.0-47.0); HEMOGLOBIN 8.3 G/DL (12.0-16.0); MEAN CORPUSCULAR VOLUME 82 FL (80-99); PLATELET COUNT 272 K/UL (150-450); RED BLOOD COUNT 3.07 M/UL (4.20-5.40); RED CELL DISTRIBUTION WIDTH 14.8 % (11.6-14.8); WHITE BLOOD COUNT 20.3 K/UL (4.8-10.8)
[2018-02-15 10:54] LABS: ALANINE AMINOTRANSFERASE 213 U/L (12-78); ALBUMIN 1.6 G/DL (3.4-5.0); ALBUMIN/GLOBULIN RATIO 0.3 (1.0-2.7); ALKALINE PHOSPHATASE 371 U/L (46-116); ANION GAP 14 mmol/L (5-15); ASPARTATE AMINO TRANSFERASE 87 U/L (15-37); BILIRUBIN,TOTAL 1.6 MG/DL (0.2-1.0); BLOOD UREA NITROGEN 96 mg/dL (7-18); CALCIUM 8.1 MG/DL (8.5-10.1); CARBON DIOXIDE 22 MMOL/L (21-32); CHLORIDE 93 MMOL/L (98-107); CHOLESTEROL 107 MG/DL (< 200); CREATININE 4.7 MG/DL (0.55-1.30); FERRITIN 357 NG/ML (8-388); HDL CHOLESTEROL 8 MG/DL (40-60); POTASSIUM 3.4 MMOL/L (3.5-5.1); SODIUM 129 MMOL/L (136-145); TRIGLYCERIDES 491 MG/DL (30-150)
[2018-02-15 10:55] LABS: BILIRUBIN,DIRECT 1.2 MG/DL (0.0-0.3)
--- NOTE | 2018-02-15 11:30 | Diagnostic Imaging Report ---
Indication: Abdominal pain Technique: Mcleod-scale and duplex images of the upper abdomen were obtained Comparison: none Findings: Gallbladder is unremarkable, without stones, wall thickening, nor pericholecystic fluid. Sonographic Bunn's sign is negative. Common bile duct measures for mm in diameter. No intrahepatic biliary ductal dilatation. Liver demonstrates normal echogenicity, no focal abnormality. It is equivocally mildly enlarged Portal vein and hepatic veins are patent. Pancreas is unremarkable. Spleen is unremarkable. Left kidney measures 11.6 cm in length. Right kidney measures 10.5 cm length. Both kidneys demonstrate normal echogenicity. There is no hydronephrosis. Right kidney demonstrates a 16 mm lower pole cyst . Non-aneurysmal abdominal aorta . Bladder contains a Kenney catheter. There is 123 mL of urine within the bladder despite the Kenney catheter. Impression: Negative for gallstones or dilated ducts Equivocal mild hepatomegaly Estimated 123 mL of urine within the bladder despite the presence of a Kenney catheter Incidental finding right lower pole renal cyst
--- NOTE | 2018-02-15 11:56 | Infectious Diseases Prog Note ---
Assessment/Plan Assessment/Plan ASSESSMENT AND PLAN: 1. staph aureus/gram neg left foot wound/ulcer infection/abscess/cellulitis/? osteomyelitis, sepsis, leukocytosis, MRI noted - - change abx to zyvox and zosyn, avoid nephrotoxic antibiotics - check wound culture, watch labs - s/p washout left foot - patient will need angiogram, debridement, possible revascularization, possible amputation - communicated with primary, podiatry and vascular surgery - d/w patient 2. Acute kidney injury, elevated creatinine. The patient had a Fried placed. We will watch creatinine closely. 3. Elevated liver function tests and alkaline phosphatase. We will check ultrasound and hepatitis panel. 4. Diabetes. 5. Hypertension. 6. Questionable hyperlipidemia. 7. Anemia. 8. Questionable chronic kidney disease. 9. Acute renal failure. 10. Neuropathy. 11. Back pain. 12. Pain management. 13. Blood sugar and blood pressure treatment for diabetes and hypertension per primary. 14. Diabetes and hypertension. 15. No allergies. 16. Social history negative. 17. MAR was noted. 18. Case discussed with RN. 19. Notes were reviewed. 20. Family history noncontributory. 21. Please continue other care per Dr. Ortiz and consultants and Podiatry followup. Subjective Constitutional: Denies: fever HEENT: Denies: congestion Respiratory: Denies: shortness of breath Cardiovascular: Denies: chest pain Gastrointestinal/Abdominal: Denies: nausea, vomiting, diarrhea Genitourinary: Reports: other - no fried Neurologic: Denies: headache Psychiatric: Denies: depression Skin: Denies: rash Hematologic: Denies: bleeding Musculoskeletal: Denies: pain Allergies: Coded Allergies: No Known Allergies (Unverified , 12/10/17) Objective Vital Signs Last 24 Hour Vital Signs Date Time Temp Pulse Resp B/P (MAP) Pulse Ox O2 Delivery O2 Flow Rate FiO2 02/15/18 09:42 70 125/56 02/15/18 08:00 97.9 70 18 125/56 98 97.9 02/15/18 04:11 97.7 75 20 113/51 92 Room Air 97.7 02/15/18 00:00 97.7 78 15 118/60 92 97.7 02/14/18 20:00 98.1 78 19 131/63 92 98.1 3/22/18 18:16 97.5 02/14/18 15:47 97.5 79 20 129/61 95 97.5 02/14/18 14:22 97.1 02/14/18 12:18 97.1 76 20 118/59 99 97.1 Height (Feet): 5 Height (Inches): 11.00 Weight (Pounds): 190 General Appearance: no acute distress HEENT: normocephalic, atraumatic, anicteric, mucous membranes moist Respiratory/Chest: lungs clear, normal breath sounds, no respiratory distress, respiratory distress Cardiovascular: normal rate, regular rhythm, no gallop/murmur, no JVD Abdomen: normal bowel sounds, soft, non tender, no organomegaly, non distended Genitourinary: other - no fried Extremities: no cyanosis, other - left foot covered Skin: no rash Neurologic/Psychiatric: chemical compounder helper II-XII grossly normal, alert, responsive Lymphatic: no neck adenopathy Musculoskeletal: no effusion Objective MRI left foot: Impression: Somewhat limited exam, due to motion artifact Abnormal STIR and T1 signal within the first proximal phalanx and head of the first metatarsal. This is worrisome for osteomyelitis Evidence of soft tissue cellulitis of the first digit with an inferomedial soft tissue ulcer adjacent to the first metatarsophalangeal joint. More generalized edema of the forefoot also is demonstrated. More localized fluid collection dorsal to the first metatarsophalangeal joint could represent a small soft tissue abscess Small signal voids in the soft tissues adjacent to the first metatarsal could represent gas bubbles and therefore raise concern for infection with gas-forming organism Findings discussed by phone with Dr. Ortiz at the time of interpretation Microbiology Date/Time Source Procedure Growth Status 02/13/18 21:50 Blood Blood Culture - Preliminary NO GROWTH AFTER 24 HOURS Resulted 02/13/18 21:35 Blood Blood Culture - Preliminary NO GROWTH AFTER 24 HOURS Resulted 02/14/18 15:55 Indwelling Cath Urine Culture - Preliminary NO GROWTH Resulted 02/14/18 12:15 Foot Left Gram Stain - Final Resulted 02/14/18 12:15 Foot Left Wound Culture - Preliminary Resulted 02/13/18 21:30 Foot Left Gram Stain - Final Resulted 02/13/18 21:30 Wound Culture - Preliminary Staphylococcus Aureus Gram Negative Roberth Resulted Laboratory Tests Test 02/14/18 16:25 3/23/18 04:30 02/15/18 09:15 C-Reactive Protein, Quantitative 14.4 mg/dL (0.00-0.90) H Urine Color Yellow Urine Appearance Clear Urine pH 5 (4.5-8.0) Urine Specific [place] 1.015 (1.005-1.035) Urine Protein 3+ (NEGATIVE) H Urine Glucose (UA) 1+ (NEGATIVE) H Urine Ketones Negative (NEGATIVE) Urine Occult Blood 2+ (NEGATIVE) H Urine Nitrite Negative (NEGATIVE) Urine Bilirubin Negative (NEGATIVE) Urine Urobilinogen Normal MG/DL (0.0-1.0) Urine Leukocyte Esterase 2+ (NEGATIVE) H Urine RBC 2-4 /HPF (0 - 2) H Urine WBC 20-30 /HPF (0 - 2) H Urine Squamous Epithelial Cells Many /LPF (NONE/OCC) H Urine Bacteria Few /HPF (NONE) Urine Eosinophils None seen Urine Random Sodium 46 mmol/L (20-110) Urine Creatinine 76.7 MG/DL (30.0-125.0) White Blood Count 20.3 K/UL (4.8-10.8) H Red Blood Count 3.07 M/UL (4.20-5.40) L Hemoglobin 8.3 G/DL (12.0-16.0) L Hematocrit 25.1 % (37.0-47.0) L Mean Corpuscular Volume 82 FL (80-99) Mean Corpuscular Hemoglobin 27.1 PG (27.0-31.0) Mean Corpuscular Hemoglobin Concent 33.1 G/DL (32.0-36.0) Red Cell Distribution Width 14.8 % (11.6-14.8) Platelet Count 272 K/UL (150-450) Mean Platelet Volume 7.6 FL (6.5-10.1) Neutrophils (%) (Auto) % (45.0-75.0) Lymphocytes (%) (Auto) % (20.0-45.0) Monocytes (%) (Auto) % (1.0-10.0) Eosinophils (%) (Auto) % (0.0-3.0) Basophils (%) (Auto) % (0.0-2.0) Differential Total Cells Counted 100 Neutrophils % (Manual) 87 % (45-75) H Lymphocytes % (Manual) 5 % (20-45) L Monocytes % (Manual) 5 % (1-10) Eosinophils % (Manual) 3 % (0-3) Basophils % (Manual) 0 % (0-2) Band Neutrophils 0 % (0-8) Platelet Estimate Adequate Platelet Morphology Normal Hypochromasia 1+ Ovalocytes 1+ Acanthocytes 1+ Sodium Level 129 MMOL/L (136-145) L Potassium Level 3.4 MMOL/L (3.5-5.1) L Chloride Level 93 MMOL/L (98-107) L Carbon Dioxide Level 22 MMOL/L (21-32) Anion Gap 14 mmol/L (5-15) Blood Urea Nitrogen 96 mg/dL (7-18) H Creatinine 4.7 MG/DL (0.55-1.30) H Estimat Glomerular Filtration Rate 11.3 mL/min (>60) Glucose Level 173 MG/DL (74-106) H Uric Acid Pending Calcium Level 8.1 MG/DL (8.5-10.1) L Phosphorus Level Pending Magnesium Level Pending Iron Level Pending Unsaturated Iron Binding Pending Ferritin 357 NG/ML (8-388) Total Bilirubin 1.6 MG/DL (0.2-1.0) H Direct Bilirubin 1.2 MG/DL (0.0-0.3) H Gamma Glutamyl Transpeptidase Pending Aspartate Amino Transf (AST/SGOT) 87 U/L (15-37) H Alanine Aminotransferase (ALT/SGPT) 213 U/L (12-78) H Alkaline Phosphatase 371 U/L (46-116) H Total Creatine Kinase Pending Troponin I Pending Pro-B-Type Natriuretic Peptide Pending Total Protein 7.2 G/DL (6.4-8.2) Albumin 1.6 G/DL (3.4-5.0) L Globulin 5.6 g/dL Albumin/Globulin Ratio 0.3 (1.0-2.7) L Triglycerides Level 491 MG/DL (30-150) H Cholesterol Level 107 MG/DL (< 200) LDL Cholesterol 24 mg/dL (<100) HDL Cholesterol 8 MG/DL (40-60) L Cholesterol/HDL Ratio 13.4 (3.3-4.4) H Vitamin B12 Level Pending Folate Pending Thyroid Stimulating Hormone (TSH) 0.991 uiU/mL (0.358-3.740) Random Vancomycin Level Pending Current Medications Medications (Trade) Dose Ordered Sig/Marlena Route PRN Reason Start Time Stop Time Status Last Admin Dose Admin Acetaminophen (Tylenol) 650 mg Q4H PRN ORAL Mild Pain (Pain Scale 1-3) 02/14/18 00:00 03/16/18 00:00 02/14/18 20:53 Acetaminophen (Tylenol) 650 mg Q4H PRN RECTAL fever 02/14/18 00:00 03/16/18 00:00 Amlodipine Besylate (Norvasc) 2.5 mg DAILY ORAL 02/14/18 09:00 03/16/18 08:59 02/15/18 09:42 Bisacodyl (Dulcolax) 10 mg HSPRN PRN RECTAL Constipation 02/14/18 00:00 03/16/18 00:00 Dextrose (Dextrose 50%) STAT PRN IV Hypoglycemia 02/14/18 00:00 03/16/18 00:00 Docusate Sodium (Colace) 100 mg TID ORAL 02/14/18 18:00 03/16/18 08:59 02/15/18 09:42 Heparin Sodium (Porcine) (Heparin 5000 units/ml) 5,000 units EVERY 12 HOURS SUBQ 02/14/18 09:00 03/16/18 08:59 02/15/18 09:56 Insulin Aspart (NovoLOG) BEFORE MEALS AND HS SUBQ 02/14/18 16:30 03/16/18 16:29 02/15/18 05:57 Insulin Detemir (Levemir) 30 units Q24H SUBQ 02/14/18 16:30 03/16/18 16:29 02/14/18 16:35 Lansoprazole (Prevacid) 30 mg DAILY ORAL 02/15/18 09:00 03/17/18 08:59 02/15/18 09:42 Magnesium Hydroxide (Mom) 30 ml HSPRN PRN ORAL Constipation 02/14/18 00:00 03/16/18 00:00 Ondansetron HCl (Zofran) 4 mg Q6H PRN IVP Nausea & Vomiting 02/14/18 00:00 03/16/18 00:00 Piperacillin Sod/ Tazobactam Sod 3.375 gm/Dextrose 110 ml @ 27.5 mls/hr Q12HR@1000,2200 IVPB 02/14/18 22:00 02/21/18 21:59 02/15/18 09:43 Sodium Chloride 1,000 ml @ 75 mls/hr [id number] IV 02/14/18 18:00 03/16/18 17:59 02/14/18 17:15 Tramadol HCl (Ultram) 50 mg Q4H PRN ORAL moderate pain 02/14/18 15:00 02/21/18 14:59 02/15/18 09:54 Tramadol HCl (Ultram) 100 mg Q6H PRN ORAL severe pain 02/14/18 15:00 02/21/18 14:59 02/15/18 03:00 Vancomycin HCl (Vanco rx to dose) 1 ea DAILY PRN MISC Per rx protocol 02/14/18 00:15 03/16/18 00:14 CHAPITO DENISE Feb 15, 2018 11:56
[2018-02-15 12:00] VITALS: BP 130/53
[2018-02-15 12:14] LABS: CREATINE KINASE 28 U/L (26-308); GAMMA GLUTAMYL TRANSPEPTIDASE 193 U/L (5-85); PHOSPHORUS 4.4 MG/DL (2.5-4.9)
[2018-02-15 12:37] LABS: % IRON SATURATION 25 % (15-50); IRON 29 ug/dL (50-175); TOTAL IRON BINDING CAPACITY 115 ug/dL (250-450)
--- NOTE | 2018-02-15 14:54 | General Progress Note ---
Assessment/Plan Problem List: (1) Sepsis ICD Codes: A41.9 - Sepsis, unspecified organism SNOMED: 11065746 (2) Gram-positive bacteremia ICD Codes: R78.81 - Bacteremia SNOMED: 100911838534 (3) Osteomyelitis of first proximal phalanx and head of the first metatarsal (4) L>R foot diabetic ulcers (5) Cellulitis of left lower extremity ICD Codes: L03.116 - Cellulitis of left lower limb SNOMED: 977163496 (6) CARLOS vs CARLOS on CKD (7) Elevated LFTs ICD Codes: R79.89 - Other specified abnormal findings of blood chemistry SNOMED: 433735786, 564942232 (8) Urinary retention Assessment & Plan: Possibly 2/2 neurogenic bladder given diabetes ICD Codes: R33.9 - Retention of urine, unspecified SNOMED: 623277581 (9) Severe ischemia at rest of LLE (10) Severe peripheral arterial disease ICD Codes: I73.9 - Peripheral vascular disease, unspecified SNOMED: 906157453 (11) Insulin dependent diabetes mellitus ICD Codes: E11.9 - Type 2 diabetes mellitus without complications; Z79.4 - jail (current) use of insulin SNOMED: 54411309 (12) Diabetic neuropathy ICD Codes: E11.40 - Type 2 diabetes mellitus with diabetic neuropathy, unspecified SNOMED: 02630736, 173089251, 661466440 (13) HTN (hypertension) ICD Codes: I10 - Essential (primary) hypertension SNOMED: 92217826 (14) HLD (hyperlipidemia) ICD Codes: E78.5 - Hyperlipidemia, unspecified SNOMED: 47680134 (15) Hyponatremia ICD Codes: E87.1 - Hypo-osmolality and hyponatremia SNOMED: 01912216 (16) Hypokalemia ICD Codes: E87.6 - Hypokalemia SNOMED: 16002968 Status: stable Assessment/Plan Podiatry and ID consulted D/c vanco given rising SCr Start linezolid per ID Cont zosyn F/u wound cultures--shows Staph aureus and GNR so far F/u blood cultures on admit--/ bottles w/ GPC so far Repeat blood cultures x 2 today to monitor for clearance Trend CBC s/p bedside L foot wound washout/debridement on 02/14/18 Wound care per podiatry Check MRI L foot --> shows evidence of osteomyelitis, abscess, cellulitis Check arterial duplex BLE --> shows evidence of severe ischemia at rest of LLE Vascular surgery consulted --> recommends angiogram but cannot be done at [place]. Pt placed on [facility] transfer list pending authorization from insurance Levemir 34U daily (increased from 30U today), uptitrate as needed Start novolog 6U TID AC ERYN Check A1C --> 9.0 Hold statin given elevated LFTs F/u hepatitis panel --> neg F/u U/S abd/renal Trend LFTs Renal consulted given elevated SCr, unclear baseline Check U/A, urine lytes, renal U/S Cont fried given urinary retention Trend BMP Pt may need dialysis if she gets angiogram. She consents to it if needed Pain control, bowel regimen Supportive care Dispo: will need transfer to another facility for angiogram. CM notified DVT ppx: HSQ, SCDs D/w pt, RN, SW/CM, ID, podiatry regarding mgmt and dispo Subjective Date patient seen: Feb 15, 2018 Time patient seen: 14:54 ROS Limited/Unobtainable: No Constitutional: Reports: no symptoms HEENT: Reports: no symptoms Cardiovascular: Reports: no symptoms Respiratory: Reports: no symptoms Gastrointestinal/Abdominal: Reports: no symptoms Genitourinary: Reports: no symptoms Neurologic/Psychiatric: Reports: no symptoms Endocrine: Reports: no symptoms Hematologic/Lymphatic: Reports: no symptoms Allergies: Coded Allergies: No Known Allergies (Unverified , 12/10/17) Subjective No acute o/n events SCr rising to 4.7 WBC uptrending to 20K Blood cultures show 4/4 bottles with GPC Wound culture with Staph aureus and GNR so far Underwent bedside L foot wound washout/debridement yesterday by podiatry Pt states pain controlled. Pt is now amenable to staying to get procedures down. Pt understands and agrees to dialysis if angiogram is done. She still hopes to go back to [place] in abt 1 week. Objective Last 24 Hour Vital Signs Date Time Temp Pulse Resp B/P (MAP) Pulse Ox O2 Delivery O2 Flow Rate FiO2 02/15/18 12:00 97.7 76 18 130/53 92 97.7 02/15/18 09:42 70 125/56 02/15/18 08:00 97.9 70 18 125/56 98 97.9 02/15/18 04:11 97.7 75 20 113/51 92 Room Air 97.7 02/15/18 00:00 97.7 78 15 118/60 92 97.7 02/14/18 20:00 98.1 78 19 131/63 92 98.1 02/14/18 18:16 97.5 02/14/18 15:47 97.5 79 20 129/61 95 97.5 Intake and Output 02/14/18 02/15/18 19:00 07:00 Intake Total 535 ml 760.0 ml Output Total 650 ml 500 ml Balance -115 ml 260.0 ml Intake Oral 460 ml 200 ml IV Total 75 ml 560.0 ml Output Urine Total 650 ml 500 ml Laboratory Tests 02/14/18 16:25: C-Reactive Protein, Quantitative 14.4H 02/15/18 04:30: Urine Color Yellow, Urine Appearance Clear, Urine pH 5, Urine Specific [place] 1.015, Urine Protein 3+H, Urine Glucose (UA) 1+H, Urine Ketones Negative, Urine Occult Blood 2+H, Urine Nitrite Negative, Urine Bilirubin Negative, Urine Urobilinogen Normal, Urine Leukocyte Esterase 2+H, Urine RBC 2-4H, Urine WBC 20- 30H, Urine Squamous Epithelial Cells ManyH, Urine Bacteria Few, Urine Eosinophils None seen, Urine Random Sodium 46, Urine Creatinine 76.7 02/15/18 09:15: White Blood Count 20.3H, Red Blood Count 3.07L, Hemoglobin 8.3L, Hematocrit 25.1L, Mean Corpuscular Volume 82, Mean Corpuscular Hemoglobin 27.1, Mean Corpuscular Hemoglobin Concent 33.1, Red Cell Distribution Width 14.8, Platelet Count 272, Mean Platelet Volume 7.6, Neutrophils (%) (Auto) , Lymphocytes (%) ( Auto) , Monocytes (%) (Auto) , Eosinophils (%) (Auto) , Basophils (%) (Auto) , Differential Total Cells Counted 100, Neutrophils % (Manual) 87H, Lymphocytes % (Manual) 5L, Monocytes % (Manual) 5, Eosinophils % (Manual) 3, Basophils % ( Manual) 0, Band Neutrophils 0, Platelet Estimate Adequate, Platelet Morphology Normal, Hypochromasia 1+, Ovalocytes 1+, Acanthocytes 1+, Sodium Level 129L, Potassium Level 3.4L, Chloride Level 93L, Carbon Dioxide Level 22, Anion Gap 14 , Blood Urea Nitrogen 96H, Creatinine 4.7H, Estimat Glomerular Filtration Rate 11.3, Glucose Level 173H, Uric Acid 13.0H, Calcium Level 8.1L, Phosphorus Level 4.4, Magnesium Level 2.7H, Iron Level 29L, Total Iron Binding Capacity 115L, Percent Iron Saturation 25, Unsaturated Iron Binding 86L, Ferritin 357, Total Bilirubin 1.6H, Direct Bilirubin 1.2H, Gamma Glutamyl Transpeptidase 193H, Aspartate Amino Transf (AST/SGOT) 87H, Alanine Aminotransferase (ALT/SGPT) 213H , Alkaline Phosphatase 371H, Total Creatine Kinase 28, Troponin I 0.000, Pro-B- Type Natriuretic Peptide 2783H, Total Protein 7.2, Albumin 1.6L, Globulin 5.6, Albumin/Globulin Ratio 0.3L, Triglycerides Level 491H, Cholesterol Level 107, LDL Cholesterol 24, HDL Cholesterol 8L, Cholesterol/HDL Ratio 13.4H, Vitamin B12 Level > 2000H, Folate 12.0, Thyroid Stimulating Hormone (TSH) 0.991, Random Vancomycin Level 12.3 Height (Feet): 5 Height (Inches): 11.00 Weight (Pounds): 190 Objective General: alert, cooperative, no distress, appears stated age Head: normocephalic, without obvious abnormality, atraumatic Eyes: conjunctivae/corneas clear. PERRL, EOM's intact Throat: lips, mucosa, and tongue normal. MMM Neck: supple, symmetrical, trachea midline, and no JVD Lungs: clear to auscultation bilaterally Heart: regular rate and rhythm, S1, S2 normal, no murmur, click, rub or gallop Abdomen: soft, non-tender, non-distended, bowel sounds normal; no masses or organomegaly Extremities: extremities normal, atraumatic, no cyanosis or edema Pulses: non-palpable pedal pulses b/l Skin: R foot w/ necrosis on plantar aspect at 1st MTP joint. L foot with open wound on medial aspect of 1st MTP joint w/ purulent drainage, malodor, L foot w / erythema/edema/warmth/TTP Angel Corbin M.D. Feb 15, 2018 14:54
[2018-02-15] MEDS: Cyclobenzaprine 10mg Tab ORAL PRN (15:09)
--- NOTE | 2018-02-15 15:11 | Nephrology Progress Note ---
Assessment/Plan Problem List: (1) CARLOS vs CARLOS on CKD (2) Ulcer of foot due to diabetes (3) HTN (hypertension) (4) Urinary retention (5) Diabetic neuropathy Assessment left foot wound infection/ulcer infection/cellulitis, ? abscess, ? osteo, leukocytosis, ? sepsis Renal failure likely acute on Chronic cr marge Urinary retention: 500cc Urine after fried Anemia , etiology?? DM Elevated LFTs HypoAlbuminemia ? NS Plan Keep BP and BS in check slow hydrate avoid Nephrotoxics monitor renal parameters per orders Subjective ROS Limited/Unobtainable: No Constitutional: Reports: malaise Objective Objective Last 24 Hour Vital Signs Date Time Temp Pulse Resp B/P (MAP) Pulse Ox O2 Delivery O2 Flow Rate FiO2 02/15/18 12:00 97.7 76 18 130/53 92 97.7 02/15/18 09:42 70 125/56 02/15/18 08:00 97.9 70 18 125/56 98 97.9 02/15/18 04:11 97.7 75 20 113/51 92 Room Air 97.7 02/15/18 00:00 97.7 78 15 118/60 92 97.7 02/14/18 20:00 98.1 78 19 131/63 92 98.1 02/14/18 18:16 97.5 02/14/18 15:47 97.5 79 20 129/61 95 97.5 Intake and Output 02/14/18 02/15/18 19:00 07:00 Intake Total 535 ml 760.0 ml Output Total 650 ml 500 ml Balance -115 ml 260.0 ml Intake Oral 460 ml 200 ml IV Total 75 ml 560.0 ml Output Urine Total 650 ml 500 ml Laboratory Tests 02/14/18 16:25: C-Reactive Protein, Quantitative 14.4H 02/15/18 04:30: Urine Color Yellow, Urine Appearance Clear, Urine pH 5, Urine Specific [place] 1.015, Urine Protein 3+H, Urine Glucose (UA) 1+H, Urine Ketones Negative, Urine Occult Blood 2+H, Urine Nitrite Negative, Urine Bilirubin Negative, Urine Urobilinogen Normal, Urine Leukocyte Esterase 2+H, Urine RBC 2-4H, Urine WBC 20- 30H, Urine Squamous Epithelial Cells ManyH, Urine Bacteria Few, Urine Eosinophils None seen, Urine Random Sodium 46, Urine Creatinine 76.7 02/15/18 09:15: White Blood Count 20.3H, Red Blood Count 3.07L, Hemoglobin 8.3L, Hematocrit 25.1L, Mean Corpuscular Volume 82, Mean Corpuscular Hemoglobin 27.1, Mean Corpuscular Hemoglobin Concent 33.1, Red Cell Distribution Width 14.8, Platelet Count 272, Mean Platelet Volume 7.6, Neutrophils (%) (Auto) , Lymphocytes (%) ( Auto) , Monocytes (%) (Auto) , Eosinophils (%) (Auto) , Basophils (%) (Auto) , Differential Total Cells Counted 100, Neutrophils % (Manual) 87H, Lymphocytes % (Manual) 5L, Monocytes % (Manual) 5, Eosinophils % (Manual) 3, Basophils % ( Manual) 0, Band Neutrophils 0, Platelet Estimate Adequate, Platelet Morphology Normal, Hypochromasia 1+, Ovalocytes 1+, Acanthocytes 1+, Sodium Level 129L, Potassium Level 3.4L, Chloride Level 93L, Carbon Dioxide Level 22, Anion Gap 14 , Blood Urea Nitrogen 96H, Creatinine 4.7H, Estimat Glomerular Filtration Rate 11.3, Glucose Level 173H, Uric Acid 13.0H, Calcium Level 8.1L, Phosphorus Level 4.4, Magnesium Level 2.7H, Iron Level 29L, Total Iron Binding Capacity 115L, Percent Iron Saturation 25, Unsaturated Iron Binding 86L, Ferritin 357, Total Bilirubin 1.6H, Direct Bilirubin 1.2H, Gamma Glutamyl Transpeptidase 193H, Aspartate Amino Transf (AST/SGOT) 87H, Alanine Aminotransferase (ALT/SGPT) 213H , Alkaline Phosphatase 371H, Total Creatine Kinase 28, Troponin I 0.000, Pro-B- Type Natriuretic Peptide 2783H, Total Protein 7.2, Albumin 1.6L, Globulin 5.6, Albumin/Globulin Ratio 0.3L, Triglycerides Level 491H, Cholesterol Level 107, LDL Cholesterol 24, HDL Cholesterol 8L, Cholesterol/HDL Ratio 13.4H, Vitamin B12 Level > 2000H, Folate 12.0, Thyroid Stimulating Hormone (TSH) 0.991, Random Vancomycin Level 12.3 Height (Feet): 5 Height (Inches): 11.00 Weight (Pounds): 190 General Appearance: no apparent distress, lethargic Cardiovascular: normal rate Respiratory/Chest: decreased breath sounds Abdomen: soft Objective no other change TOLU GRIFFITH 23, 2018 15:11
[2018-02-15 16:00] VITALS: BP 135/52
[2018-02-15] MEDS: Levemir Flexpen SUBQ SCH (16:52)
[2018-02-15] MEDS ORDERED: Levemir Flexpen SUBQ ONE (18:30)
[2018-02-15 20:02] VITALS: BP 123/59
[2018-02-16] VITALS: BP 111/64
--- NOTE | 2018-02-16 02:15 | Consultation ---
DATE OF CONSULTATION: 02/14/2018 VASCULAR SURGERY CONSULTATION CONSULTING PHYSICIAN: Guevara Bedolla M.D. REFERRING PHYSICIAN: Angel Corbin M.D. and Lawson Ch D.P.M. REASON FOR CONSULTATION: Arterial occlusive disease and left foot abscess infection. HISTORY OF PRESENT ILLNESS: This is a 67-year-old female, who is originally from [place], is in [place] visiting her sister. The patient was found to have extensive infected left foot wound and abscess with pus drainage. The patient has multiple medical morbidities with renal failure, creatinine more than 3, hypertension, diabetes mellitus, calcific arterial occlusive disease. Vascular Surgery is consulted for further evaluation. The patient is currently awaiting now podiatry assessment for incision and debridement of the foot abscess. PAST MEDICAL HISTORY: As above, history of renal failure, diabetes mellitus, hypertension, obesity, arterial occlusive disease, and bilateral foot wound and necrosis. MEDICATIONS: See attached MAR. ALLERGIES: No known drug allergies. SOCIAL HISTORY: Denies any history of smoking, drugs, or alcohol abuse. FAMILY HISTORY: Unremarkable. REVIEW OF SYSTEMS: CARDIOVASCULAR: No history of chest pain or palpitations. PULMONARY: No cough or hemoptysis. GASTROINTESTINAL: No history of abdominal pain, constipation, or diarrhea. GENITOURINARY: No urinary symptoms. NEUROLOGIC: No history of strokes or seizures. PHYSICAL EXAMINATION: VITAL SIGNS: The patient is currently afebrile at 97 degrees, heart rate is 80, blood pressure 150/76, and respirations 16. The patient has palpable radial pulses. No evidence of carotid bruits. LUNGS: Clear to auscultation bilaterally. HEART: Regular rate and rhythm. ABDOMEN: Soft and nontender. She has palpable femoral pulses, absent popliteal and absent pedal pulses bilaterally. Feet are warm. She has a dry right first metatarsal plantar head wound necrosis and gangrenous lesion. She also has an infected wet gangrene of the left foot distal toe and first metatarsal. Appears to be pus drainage and probes to the bone. IMPRESSION: 1. Left foot wet gangrene with clinical osteomyelitis. 2. Calcific multi-level arterial occlusive disease. 3. Multiple risk factors with renal failure, hypertension, diabetes mellitus, obesity. PLAN AND RECOMMENDATION: 1. Foot debridement and drainage per Podiatry Service. 2. Antibiotics per ID service. 3. The patient will strongly benefit from lower extremity angiography to assess for revascularization. The patient also carries a very high risk of needing dialysis given her advanced renal failure if she undergoes angiography and use of contrast imaging. The above was discussed at length with the patient as well as her daughter on the phone. They are aware she is at high risk of needing more proximal leg amputation given the extent of her infection and her co-morbidities. Guevara Bedolla M.D. DR: JAMES JOB#: [id number] CC: Guevara Bedolla M.D.; Fax#: [phone] ROSARIO PETERSON M.D. ; FAX#: [phone] Miguelangel Smiley D.P.MSy; FAX#: [phone] XUAN
[2018-02-16 04:00] VITALS: BP 135/95
[2018-02-16] MEDS: NovoLOG Insulin Flexpen SUBQ SCH ×7 (06:43→20:59)
[2018-02-16 07:20] LABS: ANION GAP 13 mmol/L (5-15); BLOOD UREA NITROGEN 97 mg/dL (7-18); CARBON DIOXIDE 22 MMOL/L (21-32); CHLORIDE 95 MMOL/L (98-107); CREATININE 4.9 MG/DL (0.55-1.30); POTASSIUM 3.3 MMOL/L (3.5-5.1); SODIUM 130 MMOL/L (136-145)
[2018-02-16 07:51] LABS: HEMATOCRIT 25.1 % (37.0-47.0); HEMOGLOBIN 8.4 G/DL (12.0-16.0); MEAN CORPUSCULAR VOLUME 81 FL (80-99); PLATELET COUNT 277 K/UL (150-450); RED CELL DISTRIBUTION WIDTH 15.1 % (11.6-14.8)
[2018-02-16 07:59] LABS: WHITE BLOOD COUNT 22.4 K/UL (4.8-10.8)
[2018-02-16 08:00] VITALS: BP 125/55
[2018-02-16] MEDS: Docusate 100mg cap ORAL SCH ×3 (10:03→17:51)
[2018-02-16] MEDS: Heparin 5000 units/ml inj SUBQ SCH ×2 (10:05→20:58)
[2018-02-16] MEDS: traMADol 50mg tab ORAL PRN ×3 (11:31→22:34)
[2018-02-16] MEDS: Piperacillin/Tazobactam 3.375 GM in D5W 110 ML IVPB SCH ×2 (11:31→22:34)
[2018-02-16 12:00] VITALS: BP 125/47
[2018-02-16 15:49] VITALS: BP 132/54
--- NOTE | 2018-02-16 16:29 | Nephrology Progress Note ---
Assessment/Plan Problem List: (1) CARLOS vs CARLOS on CKD (2) Ulcer of foot due to diabetes (3) HTN (hypertension) (4) Urinary retention (5) Diabetic neuropathy Assessment left foot wound infection/ulcer infection/cellulitis, ? abscess, ? osteo, leukocytosis, ? sepsis Renal failure likely acute on Chronic cr marge Urinary retention: 500cc Urine after fried Anemia , etiology?? DM Elevated LFTs HypoAlbuminemia ? NS Plan Keep BP and BS in check slow hydrate avoid Nephrotoxics monitor renal parameters per orders Subjective ROS Limited/Unobtainable: No Objective Objective Last 24 Hour Vital Signs Date Time Temp Pulse Resp B/P (MAP) Pulse Ox O2 Delivery O2 Flow Rate FiO2 02/16/18 15:49 97.0 67 18 132/54 98 97.0 02/16/18 12:00 97.1 66 18 125/47 95 97.1 02/16/18 10:04 65 125/55 02/16/18 08:00 96.9 65 18 125/55 94 96.9 02/16/18 04:00 97.3 71 20 135/95 91 Room Air 97.3 02/16/18 00:00 97.3 66 18 111/64 90 Room Air 97.3 02/15/18 21:17 97.3 02/15/18 20:18 97.3 02/15/18 20:02 97.3 71 20 123/59 92 Room Air 97.3 Intake and Output 02/15/18 02/16/18 19:00 07:00 Intake Total 410.0 ml 75 ml Output Total 200 ml 300 ml Balance 210.0 ml -225 ml IV Total 410.0 ml 75 ml Output Urine Total 200 ml 300 ml Laboratory Tests 02/16/18 06:00: White Blood Count 22.4*H, Red Blood Count 3.10L, Hemoglobin 8.4L, Hematocrit 25.1L, Mean Corpuscular Volume 81, Mean Corpuscular Hemoglobin 27.2, Mean Corpuscular Hemoglobin Concent 33.7, Red Cell Distribution Width 15.1H, Platelet Count 277, Mean Platelet Volume 9.2, Neutrophils (%) (Auto) , Lymphocytes (%) (Auto) , Monocytes (%) (Auto) , Eosinophils (%) (Auto) , Basophils (%) (Auto) , Differential Total Cells Counted 100, Neutrophils % ( Manual) 88H, Lymphocytes % (Manual) 5L, Monocytes % (Manual) 5, Eosinophils % ( Manual) 0, Basophils % (Manual) 0, Band Neutrophils 2, Platelet Estimate Adequate, Platelet Morphology Normal, Hypochromasia 1+, Anisocytosis 1+, Sodium Level 130L, Potassium Level 3.3L, Chloride Level 95L, Carbon Dioxide Level 22, Anion Gap 13, Blood Urea Nitrogen 97H, Creatinine 4.9H, Estimat Glomerular Filtration Rate 10.8, Glucose Level 132H, Calcium Level 8.0L Height (Feet): 5 Height (Inches): 11.00 Weight (Pounds): 190 General Appearance: no apparent distress Cardiovascular: regular rhythm Respiratory/Chest: decreased breath sounds Abdomen: distended Objective no other change TOLU GRIFFITH Feb 16, 2018 16:29
[2018-02-16] MEDS: Levemir Flexpen SUBQ SCH (16:50)
--- NOTE | 2018-02-16 17:10 | Infectious Diseases Prog Note ---
Assessment/Plan Assessment/Plan ASSESSMENT AND PLAN: 1. staph aureus bacteremia, staph aureus/mrsa/e.coli left foot wound/ulcer infection/abscess/cellulitis/? osteomyelitis/gangrene, sepsis, leukocytosis, MRI noted - - zyvox and zosyn, avoid nephrotoxic antibiotics - check surveillance blood cultures, watch labs - s/p washout left foot - patient will need angiogram, debridement, possible revascularization, possible amputation - communicated with primary, podiatry and vascular surgery - d/w patient 2. Acute kidney injury, elevated creatinine. The patient had a Fried placed. We will watch creatinine closely. 3. Elevated liver function tests and alkaline phosphatase. We will check ultrasound and hepatitis panel. 4. Diabetes. 5. Hypertension. 6. Questionable hyperlipidemia. 7. Anemia. 8. Questionable chronic kidney disease. 9. Acute renal failure. 10. Neuropathy. 11. Back pain. 12. Pain management. 13. Blood sugar and blood pressure treatment for diabetes and hypertension per primary. 14. Diabetes and hypertension. 15. No allergies. 16. Social history negative. 17. MAR was noted. 18. Case discussed with RN. 19. Notes were reviewed. 20. Family history noncontributory. 21. Please continue other care per Dr. Ortiz and consultants and Podiatry followup. Subjective Constitutional: Denies: fever HEENT: Denies: congestion Respiratory: Denies: shortness of breath Cardiovascular: Denies: chest pain Gastrointestinal/Abdominal: Denies: nausea, vomiting, diarrhea Genitourinary: Reports: other Neurologic: Denies: headache Psychiatric: Denies: depression Skin: Denies: rash Hematologic: Denies: bleeding Musculoskeletal: Denies: pain Allergies: Coded Allergies: No Known Allergies (Unverified , 12/10/17) Objective Vital Signs Last 24 Hour Vital Signs Date Time Temp Pulse Resp B/P (MAP) Pulse Ox O2 Delivery O2 Flow Rate FiO2 02/16/18 15:49 97.0 67 18 132/54 98 97.0 02/16/18 12:00 97.1 66 18 125/47 95 97.1 02/16/18 10:04 65 125/55 02/16/18 08:00 96.9 65 18 125/55 94 96.9 02/16/18 04:00 97.3 71 20 135/95 91 Room Air 97.3 02/16/18 00:00 97.3 66 18 111/64 90 Room Air 97.3 02/15/18 21:17 97.3 02/15/18 20:18 97.3 02/15/18 20:02 97.3 71 20 123/59 92 Room Air 97.3 Height (Feet): 5 Height (Inches): 11.00 Weight (Pounds): 190 General Appearance: no acute distress HEENT: normocephalic, atraumatic, anicteric, mucous membranes moist Respiratory/Chest: lungs clear, normal breath sounds, no respiratory distress, no accessory muscle use Cardiovascular: normal rate, regular rhythm, no gallop/murmur, no JVD Abdomen: normal bowel sounds, soft, non tender, no organomegaly, non distended Genitourinary: other - no fried Extremities: other - left foot covered 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 This is worrisome for osteomyelitis Evidence of soft tissue cellulitis of the first digit with an inferomedial soft tissue ulcer adjacent to the first metatarsophalangeal joint. More generalized edema of the forefoot also is demonstrated. More localized fluid collection dorsal to the first metatarsophalangeal joint could represent a small soft tissue abscess Small signal voids in the soft tissues adjacent to the first metatarsal could represent gas bubbles and therefore raise concern for infection with gas-forming organism Findings discussed by phone with Dr. Ortiz at the time of interpretation Microbiology Date/Time Source Procedure Growth Status 02/13/18 21:50 Blood Blood Culture - Preliminary Staphylococcus Aureus Resulted 02/13/18 21:35 Blood Blood Culture - Preliminary Staphylococcus Aureus Resulted 02/15/18 04:30 Urine,Clean Catch Urine Culture - Preliminary NO GROWTH AFTER 24 HOURS Resulted 02/14/18 15:55 Indwelling Cath Urine Culture - Final NO GROWTH AFTER 48 HOURS Complete 02/14/18 12:15 Foot Left Gram Stain - Final Resulted 02/14/18 12:15 Wound Culture - Preliminary Escherichia Coli Staphylococcus Aureus Resulted 02/13/18 21:30 Foot Left Gram Stain - Final Resulted 02/13/18 21:30 Wound Culture - Preliminary Staphylococcus Aureus - Mrsa Escherichia Coli Resulted Laboratory Tests Test 02/16/18 06:00 White Blood Count 22.4 K/UL (4.8-10.8) *H Red Blood Count 3.10 M/UL (4.20-5.40) L Hemoglobin 8.4 G/DL (12.0-16.0) L Hematocrit 25.1 % (37.0-47.0) L Mean Corpuscular Volume 81 FL (80-99) Mean Corpuscular Hemoglobin 27.2 PG (27.0-31.0) Mean Corpuscular Hemoglobin Concent 33.7 G/DL (32.0-36.0) Red Cell Distribution Width 15.1 % (11.6-14.8) H Platelet Count 277 K/UL (150-450) Mean Platelet Volume 9.2 FL (6.5-10.1) Neutrophils (%) (Auto) % (45.0-75.0) Lymphocytes (%) (Auto) % (20.0-45.0) Monocytes (%) (Auto) % (1.0-10.0) Eosinophils (%) (Auto) % (0.0-3.0) Basophils (%) (Auto) % (0.0-2.0) Differential Total Cells Counted 100 Neutrophils % (Manual) 88 % (45-75) H Lymphocytes % (Manual) 5 % (20-45) L Monocytes % (Manual) 5 % (1-10) Eosinophils % (Manual) 0 % (0-3) Basophils % (Manual) 0 % (0-2) Band Neutrophils 2 % (0-8) Platelet Estimate Adequate Platelet Morphology Normal Hypochromasia 1+ Anisocytosis 1+ Sodium Level 130 MMOL/L (136-145) L Potassium Level 3.3 MMOL/L (3.5-5.1) L Chloride Level 95 MMOL/L (98-107) L Carbon Dioxide Level 22 MMOL/L (21-32) Anion Gap 13 mmol/L (5-15) Blood Urea Nitrogen 97 mg/dL (7-18) H Creatinine 4.9 MG/DL (0.55-1.30) H Estimat Glomerular Filtration Rate 10.8 mL/min (>60) Glucose Level 132 MG/DL (74-106) H Calcium Level 8.0 MG/DL (8.5-10.1) L Current Medications Medications (Trade) Dose Ordered Sig/Marlena Route PRN Reason Start Time Stop Time Status Last Admin Dose Admin Acetaminophen (Tylenol) 650 mg Q4H PRN ORAL Mild Pain (Pain Scale 1-3) 02/14/18 00:00 03/16/18 00:00 02/14/18 20:53 Acetaminophen (Tylenol) 650 mg Q4H PRN RECTAL fever 02/14/18 00:00 03/16/18 00:00 Albumin Human 500 ml @ 0 mls/hr Q0M ONCE IV 02/16/18 17:30 02/16/18 17:31 Amlodipine Besylate (Norvasc) 2.5 mg DAILY ORAL 02/14/18 09:00 03/16/18 08:59 02/16/18 10:04 Bisacodyl (Dulcolax) 10 mg HSPRN PRN RECTAL Constipation 02/14/18 00:00 03/16/18 00:00 Cyclobenzaprine HCl (Flexeril) 5 mg THREE TIMES A DAY PRN ORAL muscle spasms 02/15/18 14:15 03/17/18 14:14 02/15/18 15:09 Dextrose (Dextrose 50%) STAT PRN IV Hypoglycemia 02/14/18 00:00 03/16/18 00:00 Docusate Sodium (Colace) 100 mg TID ORAL 02/14/18 18:00 03/16/18 08:59 02/16/18 10:03 Gabapentin (Neurontin) 100 mg BEDTIME ORAL 02/15/18 21:00 03/17/18 20:59 02/15/18 20:19 Heparin Sodium (Porcine) (Heparin 5000 units/ml) 5,000 units EVERY 12 HOURS SUBQ 02/14/18 09:00 03/16/18 08:59 02/16/18 10:05 Insulin Aspart (NovoLOG) BEFORE MEALS AND HS SUBQ 02/14/18 16:30 03/16/18 16:29 02/16/18 16:50 Insulin Aspart (NovoLOG) 6 units NOVOTIAC SUBQ 02/16/18 06:30 03/18/18 06:29 02/16/18 16:51 Insulin Detemir (Levemir) 34 units Q24H SUBQ 3/24/18 16:30 03/16/18 16:29 02/16/18 16:50 Lansoprazole (Prevacid) 30 mg DAILY ORAL 02/15/18 09:00 03/17/18 08:59 02/16/18 10:03 Linezolid 300 ml @ 300 mls/hr EVERY 12 HOURS IVPB 02/15/18 21:00 02/22/18 20:59 02/16/18 10:03 Magnesium Hydroxide (Mom) 30 ml HSPRN PRN ORAL Constipation 02/14/18 00:00 03/16/18 00:00 Ondansetron HCl (Zofran) 4 mg Q6H PRN IVP Nausea & Vomiting 02/14/18 00:00 03/16/18 00:00 Piperacillin Sod/ Tazobactam Sod 3.375 gm/Dextrose 110 ml @ 27.5 mls/hr Q12HR@1000,2200 IVPB 02/14/18 22:00 02/21/18 21:59 02/16/18 11:31 Potassium Chloride (K-Dur) 20 meq TWICE A DAY ORAL 02/16/18 18:00 02/17/18 17:59 Sodium Chloride 1,000 ml @ 75 mls/hr [id number] IV 02/14/18 18:00 03/16/18 17:59 02/16/18 10:04 Tramadol HCl (Ultram) 50 mg Q4H PRN ORAL moderate pain 02/14/18 15:00 02/21/18 14:59 02/16/18 11:31 Tramadol HCl (Ultram) 100 mg Q6H PRN ORAL severe pain 02/14/18 15:00 02/21/18 14:59 02/15/18 15:34 CHAPITO DENISE 24, 2018 17:10
[2018-02-16] MEDS ORDERED: Tubing IV Secondary IV ONE (17:36)
--- NOTE | 2018-02-16 19:46 | Wound Nurse Progress Note ---
Wound RN Progress Note Wound Consult Pt under the care of DR Ch. Please follow the MD's order. No Recommendation at this time. FLASH SCHROEDER RN Feb 16, 2018 19:46
[2018-02-16 20:00] VITALS: BP 125/57
--- NOTE | 2018-02-16 20:01 | General Progress Note ---
Assessment/Plan Problem List: (1) Insulin dependent diabetes mellitus ICD Codes: E11.9 - Type 2 diabetes mellitus without complications; Z79.4 - retirement (current) use of insulin SNOMED: 30216377 (2) Diabetic neuropathy ICD Codes: E11.40 - Type 2 diabetes mellitus with diabetic neuropathy, unspecified SNOMED: 70381505, 928558344, 541908699 (3) Urinary retention ICD Codes: R33.9 - Retention of urine, unspecified SNOMED: 630836299 (4) HTN (hypertension) ICD Codes: I10 - Essential (primary) hypertension SNOMED: 22238072 (5) HLD (hyperlipidemia) ICD Codes: E78.5 - Hyperlipidemia, unspecified SNOMED: 75253617 (6) Fibromyalgia ICD Codes: M79.7 - Fibromyalgia SNOMED: 523372459 (7) Pt lives in [place] but visiting family here in [place] (8) Cellulitis of left lower extremity ICD Codes: L03.116 - Cellulitis of left lower limb SNOMED: 293798951 (9) L>R foot diabetic ulcers (10) Chronic lower back pain ICD Codes: M54.5 - Low back pain; G89.29 - Other chronic pain SNOMED: 822975854 Qualifiers: Qualified Codes: M54.5 - Low back pain; G89.29 - Other chronic pain (11) CARLOS vs CARLOS on CKD (12) Elevated LFTs ICD Codes: R79.89 - Other specified abnormal findings of blood chemistry SNOMED: 328520475, 776890482 (13) Ulcer of foot due to diabetes ICD Codes: E11.621 - Type 2 diabetes mellitus with foot ulcer; L97.509 - Non- pressure chronic ulcer of other part of unspecified foot with unspecified severity SNOMED: 87134596, 217269866 Qualifiers: Qualified Codes: E10.621 - Type 1 diabetes mellitus with foot ulcer; L97.528 - Non-pressure chronic ulcer of other part of left foot with other specified severity (14) L foot diabetic ulcer (15) Sepsis ICD Codes: A41.9 - Sepsis, unspecified organism SNOMED: 76141148 (16) Osteomyelitis of first proximal phalanx and head of the first metatarsal (17) Gram-positive bacteremia ICD Codes: R78.81 - Bacteremia SNOMED: 588677146475 (18) Hyponatremia ICD Codes: E87.1 - Hypo-osmolality and hyponatremia SNOMED: 27363825 (19) Hypokalemia ICD Codes: E87.6 - Hypokalemia SNOMED: 30927750 (20) Severe ischemia at rest of LLE (21) Severe peripheral arterial disease ICD Codes: I73.9 - Peripheral vascular disease, unspecified SNOMED: 711511894 Status: stable Assessment/Plan Podiatry and ID consulted D/c vanco given rising SCr Start linezolid per ID Cont zosyn F/u wound cultures--shows Staph aureus and GNR so far F/u blood cultures on admit--/ bottles w/ GPC so far Repeat blood cultures x 2 today to monitor for clearance Trend CBC s/p bedside L foot wound washout/debridement on 02/14/18 Wound care per podiatry Check MRI L foot --> shows evidence of osteomyelitis, abscess, cellulitis Check arterial duplex BLE --> shows evidence of severe ischemia at rest of LLE Vascular surgery consulted --> recommends angiogram but cannot be done at [place]. Pt placed on [facility] transfer list pending authorization from insurance Levemir 34U daily (increased from 30U today), uptitrate as needed Start novolog 6U TID AC ERYN Check A1C --> 9.0 Hold statin given elevated LFTs F/u hepatitis panel --> neg F/u U/S abd/renal --> mild hepatomegaly Trend LFTs Renal consulted given elevated SCr, unclear baseline Check U/A, urine lytes, renal U/S Cont fried given urinary retention Trend BMP Pt may need dialysis if she gets angiogram. She consents to it if needed Pain control, bowel regimen Supportive care Dispo: will need transfer to another facility for angiogram. CM notified DVT ppx: HSQ, SCDs D/w pt, RN, SW/CM, ID, podiatry regarding mgmt and dispo Subjective Date patient seen: Feb 16, 2018 Time patient seen: 12:11 Allergies: Coded Allergies: No Known Allergies (Unverified , 12/10/17) Subjective resting in bed AF, HDS WBC uptrending denies cp, sob, n/v Objective Last 24 Hour Vital Signs Date Time Temp Pulse Resp B/P (MAP) Pulse Ox O2 Delivery O2 Flow Rate FiO2 02/16/18 15:49 97.0 67 18 132/54 98 97.0 02/16/18 12:00 97.1 66 18 125/47 95 97.1 02/16/18 10:04 65 125/55 02/16/18 08:00 96.9 65 18 125/55 94 96.9 02/16/18 04:00 97.3 71 20 135/95 91 Room Air 97.3 02/16/18 00:00 97.3 66 18 111/64 90 Room Air 97.3 02/15/18 21:17 97.3 02/15/18 20:18 97.3 02/15/18 20:02 97.3 71 20 123/59 92 Room Air 97.3 Intake and Output 02/15/18 02/16/18 19:00 07:00 Intake Total 410.0 ml 75 ml Output Total 200 ml 300 ml Balance 210.0 ml -225 ml IV Total 410.0 ml 75 ml Output Urine Total 200 ml 300 ml Laboratory Tests 02/16/18 06:00: White Blood Count 22.4*H, Red Blood Count 3.10L, Hemoglobin 8.4L, Hematocrit 25.1L, Mean Corpuscular Volume 81, Mean Corpuscular Hemoglobin 27.2, Mean Corpuscular Hemoglobin Concent 33.7, Red Cell Distribution Width 15.1H, Platelet Count 277, Mean Platelet Volume 9.2, Neutrophils (%) (Auto) , Lymphocytes (%) (Auto) , Monocytes (%) (Auto) , Eosinophils (%) (Auto) , Basophils (%) (Auto) , Differential Total Cells Counted 100, Neutrophils % ( Manual) 88H, Lymphocytes % (Manual) 5L, Monocytes % (Manual) 5, Eosinophils % ( Manual) 0, Basophils % (Manual) 0, Band Neutrophils 2, Platelet Estimate Adequate, Platelet Morphology Normal, Hypochromasia 1+, Anisocytosis 1+, Sodium Level 130L, Potassium Level 3.3L, Chloride Level 95L, Carbon Dioxide Level 22, Anion Gap 13, Blood Urea Nitrogen 97H, Creatinine 4.9H, Estimat Glomerular Filtration Rate 10.8, Glucose Level 132H, Calcium Level 8.0L Height (Feet): 5 Height (Inches): 11.00 Weight (Pounds): 190 General Appearance: no apparent distress, alert EENT: PERRL/EOMI, normal ENT inspection Neck: non-tender, normal alignment Cardiovascular: normal rate, regular rhythm Respiratory/Chest: chest wall non-tender, lungs clear, normal breath sounds Abdomen: normal bowel sounds, non tender 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 Feb 16, 2018 20:01
[2018-02-17] VITALS: BP 133/56
[2018-02-17] MEDS: Cyclobenzaprine 10mg Tab ORAL PRN (01:01)
[2018-02-17] MEDS: Morphine Sulfate 2mg/ml Inj IVP PRN (02:04)
[2018-02-17 04:00] VITALS: BP 124/58
[2018-02-17] MEDS: traMADol 50mg tab ORAL PRN ×2 (04:32→17:33)
[2018-02-17] MEDS: NovoLOG Insulin Flexpen SUBQ SCH ×7 (06:44→21:00)
[2018-02-17 07:17] LABS: HEMATOCRIT 24.8 % (37.0-47.0); HEMOGLOBIN 8.6 G/DL (12.0-16.0); MEAN CORPUSCULAR VOLUME 79 FL (80-99); PLATELET COUNT 246 K/UL (150-450); RED BLOOD COUNT 3.12 M/UL (4.20-5.40)
[2018-02-17 07:34] LABS: ALANINE AMINOTRANSFERASE 92 U/L (12-78); ALBUMIN 1.6 G/DL (3.4-5.0); ALBUMIN/GLOBULIN RATIO 0.3 (1.0-2.7); ALKALINE PHOSPHATASE 259 U/L (46-116); ANION GAP 15 mmol/L (5-15); ASPARTATE AMINO TRANSFERASE 23 U/L (15-37); BILIRUBIN,TOTAL 0.8 MG/DL (0.2-1.0); BLOOD UREA NITROGEN 93 mg/dL (7-18); CALCIUM 8.3 MG/DL (8.5-10.1); CARBON DIOXIDE 19 MMOL/L (21-32); CHLORIDE 93 MMOL/L (98-107); CREATINE KINASE 93 U/L (26-308); GAMMA GLUTAMYL TRANSPEPTIDASE 134 U/L (5-85); PHOSPHORUS 5.6 MG/DL (2.5-4.9); POTASSIUM 3.5 MMOL/L (3.5-5.1); SODIUM 127 MMOL/L (136-145); WHITE BLOOD COUNT 28.1 K/UL (4.8-10.8)
[2018-02-17 07:38] LABS: INR 1.1 (0.9-1.1)
[2018-02-17 08:00] VITALS: BP 140/61
[2018-02-17] MEDS: Docusate 100mg cap ORAL SCH ×3 (08:39→17:34)
[2018-02-17] MEDS: Heparin 5000 units/ml inj SUBQ SCH ×2 (08:46→21:00)
--- NOTE | 2018-02-17 09:33 | Nephrology Progress Note ---
Assessment/Plan Problem List: (1) CARLOS vs CARLOS on CKD (2) Ulcer of foot due to diabetes (3) HTN (hypertension) (4) Urinary retention (5) Diabetic neuropathy Assessment left foot wound infection/ulcer infection/cellulitis, ? abscess, ? osteo, leukocytosis, ? sepsis Renal failure likely acute on Chronic cr marge 5 Urinary retention: 500cc Urine after fried Anemia , etiology?? DM Elevated LFTs HypoAlbuminemia ? NS Plan arrange for HD Keep BP and BS in check slow hydrate avoid Nephrotoxics monitor renal parameters per orders Subjective ROS Limited/Unobtainable: No Constitutional: Reports: malaise, weakness Objective Objective Last 24 Hour Vital Signs Date Time Temp Pulse Resp B/P (MAP) Pulse Ox O2 Delivery O2 Flow Rate FiO2 02/17/18 08:39 60 140/61 02/17/18 08:00 97.5 60 18 140/61 97 Room Air 97.5 02/17/18 05:31 96.9 02/17/18 04:32 96.9 02/17/18 04:00 96.0 57 20 124/58 96 Room Air 96.0 02/17/18 02:04 96.9 02/17/18 02:00 96.9 02/17/18 02:00 96.9 02/17/18 01:01 96.9 02/17/18 00:00 96.9 65 19 133/56 94 Room Air 96.9 02/16/18 22:34 97.3 02/16/18 20:00 97.3 66 20 125/57 90 Room Air 97.3 02/16/18 15:49 97.0 67 18 132/54 98 97.0 02/16/18 12:00 97.1 66 18 125/47 95 97.1 02/16/18 10:04 65 125/55 Intake and Output 02/16/18 02/17/18 19:00 07:00 Intake Total 1210.0 ml 120 ml Output Total 250 ml Balance 960.0 ml 120 ml Intake Oral 500 ml 120 ml IV Total 710.0 ml Output Urine Total 250 ml Laboratory Tests 02/17/18 05:40: White Blood Count 28.1*H, Red Blood Count 3.12L, Hemoglobin 8.6L, Hematocrit 24.8L, Mean Corpuscular Volume 79L, Mean Corpuscular Hemoglobin 27.5, Mean Corpuscular Hemoglobin Concent 34.6, Red Cell Distribution Width 15.0H, Platelet Count 246, Mean Platelet Volume 7.9, Neutrophils (%) (Auto) , Lymphocytes (%) (Auto) , Monocytes (%) (Auto) , Eosinophils (%) (Auto) , Basophils (%) (Auto) , Differential Total Cells Counted 100, Neutrophils % ( Manual) 84H, Lymphocytes % (Manual) 7L, Monocytes % (Manual) 6, Eosinophils % ( Manual) 3, Basophils % (Manual) 0, Band Neutrophils 0, Platelet Estimate Adequate, Platelet Morphology Normal, Hypochromasia 1+, Anisocytosis 1+, Prothrombin Time 12.0H, Prothromb Time International Ratio 1.1, Activated Partial Thromboplast Time 47H, Sodium Level 127L, Potassium Level 3.5, Chloride Level 93L, Carbon Dioxide Level 19L, Anion Gap 15, Blood Urea Nitrogen 93H, Creatinine 5.0H, Estimat Glomerular Filtration Rate 10.5, Glucose Level 166H, Uric Acid 13.6H, Calcium Level 8.3L, Phosphorus Level 5.6H, Magnesium Level 2.7H , Total Bilirubin 0.8, Gamma Glutamyl Transpeptidase 134H, Aspartate Amino Transf (AST/SGOT) 23, Alanine Aminotransferase (ALT/SGPT) 92H, Alkaline Phosphatase 259H, Total Creatine Kinase 93, Troponin I 0.000, C-Reactive Protein , Quantitative 17.7H, Pro-B-Type Natriuretic Peptide 2146H, Total Protein 7.1, Albumin 1.6L, Globulin 5.5, Albumin/Globulin Ratio 0.3L Height (Feet): 5 Height (Inches): 11.00 Weight (Pounds): 190 General Appearance: no apparent distress Respiratory/Chest: decreased breath sounds Abdomen: distended Objective no other change TOLU GRIFFITH Feb 17, 2018 09:33
[2018-02-17] MEDS: Piperacillin/Tazobactam 3.375 GM in D5W 110 ML IVPB SCH (09:58)
[2018-02-17] MEDS ORDERED: Vancomycin 1 GM in D5W 275 ML IVPB ONE ×2 (10:00→14:00)
[2018-02-17] MEDS: Levemir Flexpen SUBQ SCH (17:35)
[2018-02-17 20:00] VITALS: BP 132/57
[2018-02-17] MEDS: Zosyn 2.25 gm in D5W 55ml IV SCH (22:09)
--- NOTE | 2018-02-17 23:52 | General Progress Note ---
Assessment/Plan Problem List: (1) Insulin dependent diabetes mellitus ICD Codes: E11.9 - Type 2 diabetes mellitus without complications; Z79.4 - [facility] (current) use of insulin SNOMED: 75036503 (2) Diabetic neuropathy ICD Codes: E11.40 - Type 2 diabetes mellitus with diabetic neuropathy, unspecified SNOMED: 67528864, 751292521, 297076084 (3) Urinary retention ICD Codes: R33.9 - Retention of urine, unspecified SNOMED: 151126029 (4) HTN (hypertension) ICD Codes: I10 - Essential (primary) hypertension SNOMED: 05802799 (5) HLD (hyperlipidemia) ICD Codes: E78.5 - Hyperlipidemia, unspecified SNOMED: 23467375 (6) Fibromyalgia ICD Codes: M79.7 - Fibromyalgia SNOMED: 482679488 (7) Pt lives in [place] but visiting family here in [place] (8) Cellulitis of left lower extremity ICD Codes: L03.116 - Cellulitis of left lower limb SNOMED: 008310969 (9) L>R foot diabetic ulcers (10) Chronic lower back pain ICD Codes: M54.5 - Low back pain; G89.29 - Other chronic pain SNOMED: 742637922 Qualifiers: Qualified Codes: M54.5 - Low back pain; G89.29 - Other chronic pain (11) CARLOS vs CARLOS on CKD (12) Elevated LFTs ICD Codes: R79.89 - Other specified abnormal findings of blood chemistry SNOMED: 557024590, 021241595 (13) Ulcer of foot due to diabetes ICD Codes: E11.621 - Type 2 diabetes mellitus with foot ulcer; L97.509 - Non- pressure chronic ulcer of other part of unspecified foot with unspecified severity SNOMED: 29397546, 045649509 Qualifiers: Qualified Codes: E10.621 - Type 1 diabetes mellitus with foot ulcer; L97.528 - Non-pressure chronic ulcer of other part of left foot with other specified severity (14) L foot diabetic ulcer (15) Sepsis ICD Codes: A41.9 - Sepsis, unspecified organism SNOMED: 12156075 (16) Osteomyelitis of first proximal phalanx and head of the first metatarsal (17) Gram-positive bacteremia ICD Codes: R78.81 - Bacteremia SNOMED: 298845972495 (18) Hyponatremia ICD Codes: E87.1 - Hypo-osmolality and hyponatremia SNOMED: 44801341 (19) Hypokalemia ICD Codes: E87.6 - Hypokalemia SNOMED: 36080913 (20) Severe ischemia at rest of LLE (21) Severe peripheral arterial disease ICD Codes: I73.9 - Peripheral vascular disease, unspecified SNOMED: 385297168 Status: stable Assessment/Plan Podiatry and ID consulted D/c vanco given rising SCr Start linezolid per ID Cont zosyn F/u wound cultures--shows Staph aureus and GNR so far F/u blood cultures on admit--4/4 bottles w/ GPC so far Repeat blood cultures x 2 today to monitor for clearance --> 2/2 bottles showing gram positive cocci in clusters Trend CBC --> uptrending s/p bedside L foot wound washout/debridement on 02/14/18 Wound care per podiatry Check MRI L foot --> shows evidence of osteomyelitis, abscess, cellulitis Check arterial duplex BLE --> shows evidence of severe ischemia at rest of LLE Vascular surgery consulted --> recommends angiogram but cannot be done at [place]. Pt placed on [facility] transfer list pending authorization from insurance Levemir 34U daily (increased from 30U today), uptitrate as needed Start novolog 6U TID AC ERYN Check A1C --> 9.0 Hold statin given elevated LFTs F/u hepatitis panel --> neg F/u U/S abd/renal --> mild hepatomegaly Trend LFTs --> downtrending Renal consulted given elevated SCr, unclear baseline Check U/A, urine lytes, renal U/S Cont fried given urinary retention Trend BMP Pt may need dialysis if she gets angiogram. She consents to it if needed Pain control, bowel regimen Supportive care Dispo: will need transfer to another facility for angiogram. CM notified DVT ppx: HSQ, SCDs D/w pt, RN, SW/CM, ID, podiatry regarding mgmt and dispo Subjective Date patient seen: Feb 17, 2018 Time patient seen: 13:22 Allergies: Coded Allergies: No Known Allergies (Unverified , 12/10/17) Subjective resting in bed AF, HDS WBC uptrending surveillance blood cultures growing gram positive cocci in clusters in 2/2 bottles denies cp, sob, n/v, diarrhea, abdominal pain Objective Last 24 Hour Vital Signs Date Time Temp Pulse Resp B/P (MAP) Pulse Ox O2 Delivery O2 Flow Rate FiO2 02/17/18 20:30 96.6 Room Air 96.6 02/17/18 20:00 95.9 60 19 132/57 96 Room Air 95.9 02/17/18 18:32 97.5 02/17/18 17:33 97.5 02/17/18 08:39 60 140/61 02/17/18 08:00 97.5 60 18 140/61 97 Room Air 97.5 02/17/18 05:31 96.9 02/17/18 04:32 96.9 02/17/18 04:00 96.0 57 20 124/58 96 Room Air 96.0 02/17/18 02:04 96.9 02/17/18 02:00 96.9 02/17/18 02:00 96.9 02/17/18 01:01 96.9 02/17/18 00:00 96.9 65 19 133/56 94 Room Air 96.9 Intake and Output 02/16/18 02/17/18 19:00 07:00 Intake Total 1210.0 ml 120 ml Output Total 250 ml Balance 960.0 ml 120 ml Intake Oral 500 ml 120 ml IV Total 710.0 ml Output Urine Total 250 ml Laboratory Tests 02/17/18 05:40: White Blood Count 28.1*H, Red Blood Count 3.12L, Hemoglobin 8.6L, Hematocrit 24.8L, Mean Corpuscular Volume 79L, Mean Corpuscular Hemoglobin 27.5, Mean Corpuscular Hemoglobin Concent 34.6, Red Cell Distribution Width 15.0H, Platelet Count 246, Mean Platelet Volume 7.9, Neutrophils (%) (Auto) , Lymphocytes (%) (Auto) , Monocytes (%) (Auto) , Eosinophils (%) (Auto) , Basophils (%) (Auto) , Differential Total Cells Counted 100, Neutrophils % ( Manual) 84H, Lymphocytes % (Manual) 7L, Monocytes % (Manual) 6, Eosinophils % ( Manual) 3, Basophils % (Manual) 0, Band Neutrophils 0, Platelet Estimate Adequate, Platelet Morphology Normal, Hypochromasia 1+, Anisocytosis 1+, Prothrombin Time 12.0H, Prothromb Time International Ratio 1.1, Activated Partial Thromboplast Time 47H, Sodium Level 127L, Potassium Level 3.5, Chloride Level 93L, Carbon Dioxide Level 19L, Anion Gap 15, Blood Urea Nitrogen 93H, Creatinine 5.0H, Estimat Glomerular Filtration Rate 10.5, Glucose Level 166H, Uric Acid 13.6H, Calcium Level 8.3L, Phosphorus Level 5.6H, Magnesium Level 2.7H , Total Bilirubin 0.8, Gamma Glutamyl Transpeptidase 134H, Aspartate Amino Transf (AST/SGOT) 23, Alanine Aminotransferase (ALT/SGPT) 92H, Alkaline Phosphatase 259H, Total Creatine Kinase 93, Troponin I 0.000, C-Reactive Protein , Quantitative 17.7H, Pro-B-Type Natriuretic Peptide 2146H, Total Protein 7.1, Albumin 1.6L, Globulin 5.5, Albumin/Globulin Ratio 0.3L Height (Feet): 5 Height (Inches): 11.00 Weight (Pounds): 190 General Appearance: no apparent distress, alert EENT: PERRL/EOMI Neck: non-tender, normal alignment, supple Cardiovascular: normal peripheral pulses, normal rate, regular rhythm Respiratory/Chest: chest wall non-tender, lungs clear, normal breath sounds Abdomen: normal bowel sounds, non tender, soft Extremities: other - bilateral lower extremities with wounds with drainage, edema, erythema, and TTP 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 1/5 strength of right upper extremity. 4/5 strength to left upper extremity Asia Glasgow N.P. Feb 17, 2018 23:52
[2018-02-18] VITALS (11 sets, daily range): BP systolic 122–164; BP diastolic 49–82
[2018-02-18] MEDS: Zosyn 2.25 gm in D5W 55ml IV SCH (05:38)
[2018-02-18] MEDS: NovoLOG Insulin Flexpen SUBQ SCH ×7 (06:18→21:34)
[2018-02-18 07:17] LABS: HEMATOCRIT 25.3 % (37.0-47.0); HEMOGLOBIN 8.4 G/DL (12.0-16.0); MEAN CORPUSCULAR VOLUME 80 FL (80-99); PLATELET COUNT 246 K/UL (150-450); RED BLOOD COUNT 3.16 M/UL (4.20-5.40); RED CELL DISTRIBUTION WIDTH 15.3 % (11.6-14.8)
[2018-02-18 07:19] LABS: ALANINE AMINOTRANSFERASE 70 U/L (12-78); ALBUMIN 1.6 G/DL (3.4-5.0); ALBUMIN/GLOBULIN RATIO 0.3 (1.0-2.7); ALKALINE PHOSPHATASE 226 U/L (46-116); ANION GAP 14 mmol/L (5-15); ASPARTATE AMINO TRANSFERASE 32 U/L (15-37); BILIRUBIN,TOTAL 0.8 MG/DL (0.2-1.0); BLOOD UREA NITROGEN 110 mg/dL (7-18); CALCIUM 8.3 MG/DL (8.5-10.1); CARBON DIOXIDE 20 MMOL/L (21-32); CHLORIDE 96 MMOL/L (98-107); CREATININE 5.3 MG/DL (0.55-1.30); POTASSIUM 3.9 MMOL/L (3.5-5.1); SODIUM 130 MMOL/L (136-145)
[2018-02-18 07:24] LABS: WHITE BLOOD COUNT 30.1 K/UL (4.8-10.8)
--- NOTE | 2018-02-18 07:45 | Consultation ---
DATE OF CONSULTATION: 02/16/2018 NOTE: POOR AUDIO HEMATOLOGY/ONCOLOGY CONSULTATION CONSULTING PHYSICIAN: Norman Boothe M.D. REQUESTING PHYSICIANS: Karma Chen M.D. and Angel Alfonso M.D. REASON FOR CONSULTATION: Evaluation of leukocytosis. IDENTIFYING DATA: Dear Dr. Chen and Dr. Ortiz, The patient is a 67-year-old female with history of diabetes mellitus, at this time presents with infected left foot and has been consulted with ID Service, Dr. Lovell, noted to have evidence of osteomyelitis . ID Service consulted. The patient is currently getting cultures. She is on broad-spectrum antibiotics. This has been present for several days. Hematology Service was consulted given ongoing leukocytosis, rule out other causes. PAST MEDICAL HISTORY: As noted above. Neuropathy, chronic pain syndrome, diabetes mellitus, , and fibromyalgia potentially. MEDICATIONS: heparin, Dulcolax, morphine, Tylenol, aluminium hydroxide, clonidine, and antibiotics. ALLERGIES: No known drug allergies. SOCIAL HISTORY: No alcohol, tobacco, or illicit drug use. FAMILY HISTORY: Noncontributory. REVIEW OF SYSTEMS: CONSTITUTIONAL: No fevers, chills, or night sweats. SKIN: No rashes, bumps, or itching. HEENT: No headache, hearing or vision changes. BREASTS: No lumps, pain, or discharge. PULMONARY: No cough, sputum, or shortness of breath. GASTROINTESTINAL: No nausea, vomiting, or diarrhea. GENITOURINARY: No dysuria, frequency, or urgency. MUSCULOSKELETAL: No joint swelling, muscle pain, or trauma. PHYSICAL EXAMINATION: VITAL SIGNS: Reviewed. GENERAL: No distress. PULMONARY: Decreased breath sounds. CARDIOVASCULAR: Regular rate. No S3 or S4. ABDOMEN: Soft, nontender, and nondistended. EXTREMITIES: No cyanosis, swelling, or edema noted. LABORATORY AND DIAGNOSTIC DATA: WBC 22,000, hemoglobin 8.4, hematocrit 25, and platelet count 277,000. Imaging has been reviewed. ASSESSMENT AND RECOMMENDATIONS: 1. Leukocytosis, likely secondary to osteomyelitis, Staph aureus bacteremia as well. No evidence of leukemia at this time. Normal differential besides neutrophilia noted. Labs have been reviewed. Continue broad-spectrum antibiotics as per ID Service. Continue to closely monitor. Discussed with primary team. 2. Anemia due to underlying chronic disease. Closely monitor. Anemia workup from before has been reviewed. 3. Coagulopathy, likely related to decreased p.o. intake. Decreased albumin. Closely monitor per primary team. Consider administration of vitamin K in the case of patient bleeding. 4. Left foot gangrene with clinical osteomyelitis. Consider foot debridement and drainage per Podiatry team. Antibiotics as per ID Service. Closely monitor per Podiatry recommendations. 5. Cellulitis of left lower extremity. She is on broad-spectrum antibiotics. I appreciate the consultation. Norman Boothe M.D. DR: LUIS ENRIQUE JOB#: [id number] CC:
[2018-02-18] MEDS: Heparin 5000 units/ml inj SUBQ SCH ×2 (09:00→21:00)
[2018-02-18] MEDS: Docusate 100mg cap ORAL SCH ×3 (09:00→18:00)
[2018-02-18] MEDS: Meropenem 500 MG in NS 55 ML IVPB SCH (10:42)
[2018-02-18] MEDS ORDERED: Heparin 2000 units/Ns 1000ml IV PRN (13:30)
[2018-02-18] MEDS ORDERED: Lidocaine 1% Plain 30 ml INJ PRN (13:30)
--- NOTE | 2018-02-18 13:45 | General Progress Note ---
Assessment/Plan Problem List: (1) Sepsis ICD Codes: A41.9 - Sepsis, unspecified organism SNOMED: 01716970 (2) Gram-positive bacteremia ICD Codes: R78.81 - Bacteremia SNOMED: 594551658850 (3) Osteomyelitis of first proximal phalanx and head of the first metatarsal (4) L>R foot diabetic ulcers (5) Cellulitis of left lower extremity ICD Codes: L03.116 - Cellulitis of left lower limb SNOMED: 698025736 (6) CARLOS vs CARLOS on CKD (7) Elevated LFTs ICD Codes: R79.89 - Other specified abnormal findings of blood chemistry SNOMED: 204520065, 879535761 (8) Urinary retention Assessment & Plan: Possibly 2/2 neurogenic bladder given diabetes ICD Codes: R33.9 - Retention of urine, unspecified SNOMED: 829328308 (9) Severe ischemia at rest of LLE (10) Severe peripheral arterial disease ICD Codes: I73.9 - Peripheral vascular disease, unspecified SNOMED: 507447329 (11) Insulin dependent diabetes mellitus ICD Codes: E11.9 - Type 2 diabetes mellitus without complications; Z79.4 - jail (current) use of insulin SNOMED: 09836979 (12) Diabetic neuropathy ICD Codes: E11.40 - Type 2 diabetes mellitus with diabetic neuropathy, unspecified SNOMED: 57567640, 614180518, 422036893 (13) HTN (hypertension) ICD Codes: I10 - Essential (primary) hypertension SNOMED: 79526564 (14) HLD (hyperlipidemia) ICD Codes: E78.5 - Hyperlipidemia, unspecified SNOMED: 44397170 (15) Hyponatremia ICD Codes: E87.1 - Hypo-osmolality and hyponatremia SNOMED: 17969492 (16) Hypokalemia ICD Codes: E87.6 - Hypokalemia SNOMED: 46864266 Status: stable Assessment/Plan Podiatry and ID consulted D/c vanco given rising SCr s/p linezolid Restart vanco per ID as pt now will be on dialysis D/c zosyn Start meropenem per ID for broader coverage F/u wound cultures--shows Staph aureus and E. Coli F/u blood cultures on --4/ bottles w/ MRSA F/u repeat blood cultures on 02/15--4/4 bottles with GPC Repeat blood cultures today to monitor for clearance Trend CBC s/p bedside L foot wound washout/debridement on 02/14/18 Plan for repeat debridement in OR later today or tomorrow Wound care per podiatry Check MRI L foot --> shows evidence of osteomyelitis, abscess, cellulitis Check arterial duplex BLE --> shows evidence of severe ischemia at rest of LLE Vascular surgery consulted --> recommends angiogram but cannot be done at [place]. Pt placed on [facility] transfer list pending authorization from insurance Cardiology consulted for preop clearance Levemir 34U daily (increased from 30U today), uptitrate as needed Start novolog 6U TID AC ERYN Check A1C --> 9.0 Hold statin given elevated LFTs F/u hepatitis panel --> neg F/u U/S abd/renal --> mild hepatomegaly Trend LFTs Renal consulted given elevated SCr, unclear baseline Cont fried per renal s/p temporary dialysis line placement today Plan to initiate HD today per renal Trend BMP Pain control, bowel regimen Supportive care Dispo: will need transfer to another facility for angiogram per vascular surgery. CM notified DVT ppx: HSQ, SCDs D/w pt, RN, SW/CM, ID, podiatry, renal, vascular surgery, cardiology regarding mgmt and dispo. D/w renal re plan to start HD. D/w ID re abx Subjective Date patient seen: Feb 18, 2018 Time patient seen: 13:45 ROS Limited/Unobtainable: No Constitutional: Reports: weakness HEENT: Reports: no symptoms Cardiovascular: Reports: no symptoms Respiratory: Reports: no symptoms Gastrointestinal/Abdominal: Reports: no symptoms Genitourinary: Reports: no symptoms Neurologic/Psychiatric: Reports: no symptoms Endocrine: Reports: no symptoms Hematologic/Lymphatic: Reports: no symptoms Allergies: Coded Allergies: No Known Allergies (Unverified , 12/10/17) Subjective No acute o/n events WBC uptrending to 30K SCr rising, UOP decreasing Blood cultures show 4/4 bottles with MRSA. Repeat blood culture still w/ 4/4 bottles GPC Wound culture with Staph aureus and E. Coli s/p temporary dialysis line placement today w/ plan for HD to start today per renal Podiatry planning OR for debridement later today vs tomorrow Pt states pain controlled. Pt refusing amputations. Pt understands and agrees to dialysis. Wants to go back to [place] soon Objective Last 24 Hour Vital Signs Date Time Temp Pulse Resp B/P (MAP) Pulse Ox O2 Delivery O2 Flow Rate FiO2 02/18/18 09:59 60 141/63 02/18/18 08:00 97.2 60 18 141/63 96 Room Air 97.2 02/18/18 04:00 96.9 70 18 140/69 98 Room Air 96.9 02/18/18 04:00 Room Air 02/18/18 00:00 96.2 62 20 136/60 97 Room Air 96.2 02/18/18 00:00 Room Air 02/17/18 20:30 96.6 Room Air 96.6 02/17/18 20:00 95.9 60 19 132/57 96 Room Air 95.9 02/17/18 18:32 97.5 02/17/18 17:33 97.5 Intake and Output 02/17/18 02/18/18 19:00 07:00 Intake Total 350.0 ml 110 ml Output Total 500 ml 200 ml Balance -150.0 ml -90 ml Intake Oral 240 ml IV Total 110.0 ml 110 ml Output Urine Total 500 ml 200 ml Laboratory Tests 02/18/18 01:40: Urine Eosinophils None seen 02/18/18 05:40: White Blood Count 30.1*H, Red Blood Count 3.16L, Hemoglobin 8.4L, Hematocrit 25.3L, Mean Corpuscular Volume 80, Mean Corpuscular Hemoglobin 26.4L, Mean Corpuscular Hemoglobin Concent 33.1, Red Cell Distribution Width 15.3H, Platelet Count 246, Mean Platelet Volume 8.3, Neutrophils (%) (Auto) , Lymphocytes (%) (Auto) , Monocytes (%) (Auto) , Eosinophils (%) (Auto) , Basophils (%) (Auto) , Differential Total Cells Counted 100, Neutrophils % ( Manual) 78H, Lymphocytes % (Manual) 11L, Monocytes % (Manual) 5, Eosinophils % ( Manual) 1, Basophils % (Manual) 0, Band Neutrophils 5, Platelet Estimate Adequate, Platelet Morphology Normal, Hypochromasia 1+, Anisocytosis 1+, Sodium Level 130L, Potassium Level 3.9, Chloride Level 96L, Carbon Dioxide Level 20L, Anion Gap 14, Blood Urea Nitrogen 110H, Creatinine 5.3H, Estimat Glomerular Filtration Rate 9.8, Glucose Level 81, Calcium Level 8.3L, Total Bilirubin 0.8, Aspartate Amino Transf (AST/SGOT) 32, Alanine Aminotransferase (ALT/SGPT) 70, Alkaline Phosphatase 226H, Total Protein 7.2, Albumin 1.6L, Globulin 5.6, Albumin/Globulin Ratio 0.3L, Random Vancomycin Level 18.8 Height (Feet): 5 Height (Inches): 11.00 Weight (Pounds): 190 Objective General: alert, cooperative, no distress, appears stated age Head: normocephalic, without obvious abnormality, atraumatic Eyes: conjunctivae/corneas clear. PERRL, EOM's intact Throat: lips, mucosa, and tongue normal. MMM Neck: supple, symmetrical, trachea midline, and no JVD Lungs: clear to auscultation bilaterally Heart: regular rate and rhythm, S1, S2 normal, no murmur, click, rub or gallop Abdomen: soft, non-tender, non-distended, bowel sounds normal; no masses or organomegaly Extremities: extremities normal, atraumatic, no cyanosis or edema Pulses: non-palpable pedal pulses b/l Skin: R foot w/ necrosis on plantar aspect at 1st MTP joint. L foot with open wound on medial aspect of 1st MTP joint w/ purulent drainage, malodor, L foot w / erythema/edema/warmth/TTP Angel Corbin M.D. Feb 18, 2018 13:45
[2018-02-18] MEDS ORDERED: Bupivacaine 0.25% Inj 30ml INJ ONE (14:19)
[2018-02-18] MEDS ORDERED: Bacitracin 50000 Units Vial ONE (14:20)
[2018-02-18] MEDS ORDERED: Hydrogen Peroxide 473ml Bottle TOPIC ONE (14:20)
[2018-02-18] MEDS ORDERED: NeoSporin Gu Irrig 1ml Amp IRRIG ONE (14:20)
[2018-02-18] MEDS ORDERED: Bupivacaine 0.5% Inj 30 ml vial INJ ONE (14:20)
[2018-02-18] MEDS ORDERED: Heparin Sod 1000 units/ml 10ml ONE (14:22)
--- NOTE | 2018-02-18 14:55 | Infectious Diseases Prog Note ---
Assessment/Plan Assessment/Plan ASSESSMENT AND PLAN: 1. mrsa bacteremia, mrsa/e.coli/pseudomonas left foot wound/ulcer infection/ abscess/cellulitis/? osteomyelitis/gangrene, sepsis, leukocytosis, MRI noted - - leukocytosis worse, blood cultures still positive - change to meropenem and vancomycin - check surveillance blood cultures, watch labs - plan on temporary hd line, get permanent hd line once blood cultures sterile - patient will need angiogram, debridement, possible revascularization, possible amputation - communicated with primary, podiatry and vascular surgery - d/w RN and patient 2. Acute kidney injury, elevated creatinine. The patient had a Fried placed. We will watch creatinine closely. 3. Elevated liver function tests and alkaline phosphatase. We will check ultrasound and hepatitis panel. 4. Diabetes. 5. Hypertension. 6. Questionable hyperlipidemia. 7. Anemia. 8. Questionable chronic kidney disease. 9. Acute renal failure. 10. Neuropathy. 11. Back pain. 12. Pain management. 13. Blood sugar and blood pressure treatment for diabetes and hypertension per primary. 14. Diabetes and hypertension. 15. No allergies. 16. Social history negative. 17. MAR was noted. 18. Case discussed with RN. 19. Notes were reviewed. 20. Family history noncontributory. 21. Please continue other care per Dr. Ortiz and consultants and Podiatry followup. Subjective Constitutional: Reports: fatigue; Denies: fever HEENT: Denies: congestion Respiratory: Denies: shortness of breath Cardiovascular: Denies: chest pain Gastrointestinal/Abdominal: Denies: nausea, vomiting, diarrhea Genitourinary: Reports: other - no fried Neurologic: Denies: headache Psychiatric: Denies: depression Skin: Denies: rash Hematologic: Denies: bleeding Musculoskeletal: Denies: pain Allergies: Coded Allergies: No Known Allergies (Unverified , 12/10/17) Objective Vital Signs Last 24 Hour Vital Signs Date Time Temp Pulse Resp B/P (MAP) Pulse Ox O2 Delivery O2 Flow Rate FiO2 02/18/18 09:59 60 141/63 02/18/18 08:00 97.2 60 18 141/63 96 Room Air 97.2 02/18/18 04:00 96.9 70 18 140/69 98 Room Air 96.9 02/18/18 04:00 Room Air 02/18/18 00:00 96.2 62 20 136/60 97 Room Air 96.2 02/18/18 00:00 Room Air 02/17/18 20:30 96.6 Room Air 96.6 02/17/18 20:00 95.9 60 19 132/57 96 Room Air 95.9 02/17/18 18:32 97.5 02/17/18 17:33 97.5 Height (Feet): 5 Height (Inches): 11.00 Weight (Pounds): 190 General Appearance: no acute distress HEENT: normocephalic, atraumatic, anicteric, mucous membranes moist Respiratory/Chest: lungs clear, normal breath sounds, no respiratory distress, no accessory muscle use Cardiovascular: normal rate, regular rhythm Abdomen: soft, non tender, no organomegaly, non distended Genitourinary: other - no fried Extremities: other - left foot covered Skin: no rash Neurologic/Psychiatric: no motor/sensory deficits, alert, oriented x 3, responsive Lymphatic: no neck adenopathy Musculoskeletal: no effusion Objective MRI left foot: Impression: Somewhat limited exam, due to motion artifact Abnormal STIR and T1 signal within the first proximal phalanx and head of the first metatarsal. This is worrisome for osteomyelitis Evidence of soft tissue cellulitis of the first digit with an inferomedial soft tissue ulcer adjacent to the first metatarsophalangeal joint. More generalized edema of the forefoot also is demonstrated. More localized fluid collection dorsal to the first metatarsophalangeal joint could represent a small soft tissue abscess Small signal voids in the soft tissues adjacent to the first metatarsal could represent gas bubbles and therefore raise concern for infection with gas-forming organism Findings discussed by phone with Dr. Ortiz at the time of interpretation Microbiology Date/Time Source Procedure Growth Status 02/15/18 21:00 Blood Blood Culture - Preliminary Staphylococcus Aureus Resulted 02/15/18 04:30 Urine,Clean Catch Urine Culture - Final NO GROWTH AFTER 48 HOURS Complete 02/14/18 12:15 Foot Left Gram Stain - Final Complete 02/14/18 12:15 Wound Culture - Final Escherichia Coli Staphylococcus Aureus - Mrsa Complete Microbiology Date/Time Source Procedure Growth Status 02/15/18 21:00 Blood Blood Culture - Preliminary Staphylococcus Aureus Resulted 02/15/18 20:50 Blood Blood Culture - Preliminary Staphylococcus Aureus Resulted Laboratory Tests Test 02/18/18 01:40 02/18/18 05:40 Urine Eosinophils None seen White Blood Count 30.1 K/UL (4.8-10.8) *H Red Blood Count 3.16 M/UL (4.20-5.40) L Hemoglobin 8.4 G/DL (12.0-16.0) L Hematocrit 25.3 % (37.0-47.0) L Mean Corpuscular Volume 80 FL (80-99) Mean Corpuscular Hemoglobin 26.4 PG (27.0-31.0) L Mean Corpuscular Hemoglobin Concent 33.1 G/DL (32.0-36.0) Red Cell Distribution Width 15.3 % (11.6-14.8) H Platelet Count 246 K/UL (150-450) Mean Platelet Volume 8.3 FL (6.5-10.1) Neutrophils (%) (Auto) % (45.0-75.0) Lymphocytes (%) (Auto) % (20.0-45.0) Monocytes (%) (Auto) % (1.0-10.0) Eosinophils (%) (Auto) % (0.0-3.0) Basophils (%) (Auto) % (0.0-2.0) Differential Total Cells Counted 100 Neutrophils % (Manual) 78 % (45-75) H Lymphocytes % (Manual) 11 % (20-45) L Monocytes % (Manual) 5 % (1-10) Eosinophils % (Manual) 1 % (0-3) Basophils % (Manual) 0 % (0-2) Band Neutrophils 5 % (0-8) Platelet Estimate Adequate Platelet Morphology Normal Hypochromasia 1+ Anisocytosis 1+ Sodium Level 130 MMOL/L (136-145) L Potassium Level 3.9 MMOL/L (3.5-5.1) Chloride Level 96 MMOL/L (98-107) L Carbon Dioxide Level 20 MMOL/L (21-32) L Anion Gap 14 mmol/L (5-15) Blood Urea Nitrogen 110 mg/dL (7-18) H Creatinine 5.3 MG/DL (0.55-1.30) H Estimat Glomerular Filtration Rate 9.8 mL/min (>60) Glucose Level 81 MG/DL (74-106) Calcium Level 8.3 MG/DL (8.5-10.1) L Total Bilirubin 0.8 MG/DL (0.2-1.0) Aspartate Amino Transf (AST/SGOT) 32 U/L (15-37) Alanine Aminotransferase (ALT/SGPT) 70 U/L (12-78) Alkaline Phosphatase 226 U/L (46-116) H Total Protein 7.2 G/DL (6.4-8.2) Albumin 1.6 G/DL (3.4-5.0) L Globulin 5.6 g/dL Albumin/Globulin Ratio 0.3 (1.0-2.7) L Random Vancomycin Level 18.8 ug/mL Current Medications Medications (Trade) Dose Ordered Sig/Marlena Route PRN Reason Start Time Stop Time Status Last Admin Dose Admin Acetaminophen (Tylenol) 650 mg Q4H PRN ORAL Mild Pain (Pain Scale 1-3) 02/14/18 00:00 03/16/18 00:00 02/14/18 20:53 Acetaminophen (Tylenol) 650 mg Q4H PRN RECTAL fever 02/14/18 00:00 03/16/18 00:00 Amlodipine Besylate (Norvasc) 2.5 mg DAILY ORAL 02/14/18 09:00 03/16/18 08:59 02/18/18 09:59 Bisacodyl (Dulcolax) 10 mg HSPRN PRN RECTAL Constipation 02/14/18 00:00 03/16/18 00:00 Dextrose (Dextrose 50%) STAT PRN IV Hypoglycemia 02/14/18 00:00 03/16/18 00:00 Docusate Sodium (Colace) 100 mg TID ORAL 02/14/18 18:00 03/16/18 08:59 02/17/18 17:34 Gabapentin (Neurontin) 100 mg BEDTIME ORAL 02/15/18 21:00 03/17/18 20:59 02/17/18 22:09 Heparin Sodium (Porcine) (Heparin 5000 units/ml) 5,000 units EVERY 12 HOURS SUBQ 02/14/18 09:00 03/16/18 08:59 02/17/18 08:46 Heparin Sodium/ Sodium Chloride (Heparin 2000 units/Ns 1000ml premix) 2,000 unit ONCE PRN IV FOR DIALYSIS CATHETER PLACEMEN 02/18/18 13:30 02/19/18 23:59 Insulin Aspart (NovoLOG) BEFORE MEALS AND HS SUBQ 02/14/18 16:30 03/16/18 16:29 02/17/18 17:36 Insulin Aspart (NovoLOG) 6 units NOVOTIAC SUBQ 02/16/18 06:30 03/18/18 06:29 02/17/18 17:35 Insulin Detemir (Levemir) 34 units Q24H SUBQ 02/16/18 16:30 03/16/18 16:29 02/17/18 17:35 Lansoprazole (Prevacid) 30 mg DAILY ORAL 02/15/18 09:00 03/17/18 08:59 02/17/18 08:39 Lidocaine HCl (Xylocaine 1% 30ml) 30 ml ONCE PRN INJ FOR DILAYSIS CATHETER PLACEMEN 02/18/18 13:30 02/19/18 23:59 Meropenem 500 mg/ Sodium Chloride 55 ml @ 110 mls/hr Q24H IVPB 02/18/18 09:30 02/23/18 09:29 02/18/18 10:42 Morphine Sulfate (Morphine Sulfate) 4 mg Q6H PRN IVP For Severe Pain(see inst) 02/17/18 02:00 02/24/18 01:59 02/17/18 02:04 Ondansetron HCl (Zofran) 4 mg Q6H PRN IVP Nausea & Vomiting 02/14/18 00:00 03/16/18 00:00 Sevelamer Carbonate (Renvela) 800 mg THREE TIMES A DAY ORAL 02/17/18 13:00 03/19/18 12:59 02/17/18 17:33 Tramadol HCl (Ultram) 50 mg Q4H PRN ORAL moderate pain 02/14/18 15:00 02/21/18 14:59 02/17/18 17:33 Tramadol HCl (Ultram) 100 mg Q6H PRN ORAL severe pain 02/14/18 15:00 02/21/18 14:59 02/17/18 04:32 Vancomycin HCl (Vanco rx to dose) 1 ea DAILY PRN MISC Per rx protocol 02/18/18 08:30 03/20/18 08:29 Vancomycin HCl 1 gm/Dextrose 275 ml @ 183.708 mls/hr ONCE ONCE IVPB 02/18/18 15:00 02/18/18 16:29 CHAPITO DENISE 26, 2018 14:55
[2018-02-18] MEDS ORDERED: Vancomycin 1gm in D5W 275ml IVPB ONE (15:00)
--- NOTE | 2018-02-18 15:20 | Pre-Procedure Note/Attestation ---
Pre-Procedure Note/Attestation Complete Prior to Procedure Planned Procedure: right Procedure Narrative: Temporary dialysis catheter Indications for Procedure Pre-Operative Diagnosis: Renal failure Attestation I attest that I discussed the nature of the procedure; its benefits; risks and complications; and alternatives (and the risks and benefits of such alternatives ), prior to the procedure, with the patient (or the patient's legal sales representative metals). I attest that, if there was a reasonable possibility of needing a blood transfusion, the patient (or the patient's legal sales representative metals) was given the [facility] standardized written summary, pursuant to the Bakari Marco Antonio Blood Safety Act ([place] Health and Safety Code # 1645, as amended). I attest that I re-evaluated the patient just prior to the surgery and that there has been no change in the patient's H&P, except as documented below: JEAN JOHNSON M.D. Feb 18, 2018 15:20
--- NOTE | 2018-02-18 15:23 | Diagnostic Imaging Report ---
Indication:Needs dialysis access Technique: Procedural timeout performed. Informed consent obtained prior to commencement of the procedure.. Ultrasound confirms patent compressible right internal jugular vein. Total sterile technique, including sterile probe cover and sterile gel, sterile gloves, hand hygiene, hat, mask, sterile gown, large sterile drape, and preparation with 2% chlorhexidine utilized.Local anesthesia with 1% lidocaine. Under real-time ultrasound guidance, puncture right internal jugular vein using 21-gauge needle, passage 0.018 guidewire, insertion 4 Telugu micropuncture introducer, passage 0.018 guidewire, insertion 4 Telugu micropuncture introducer, passage 0.035 guidewire, over which was passed serial dilators and then a 15 cm long triple-lumen temporary dialysis catheter, under fluoroscopic supervision. Completion stored digital radiograph obtained, demonstrating catheter tip position at the mid superior vena cava The patient tolerated the procedure well, without immediate complication. Fluoroscopy time 0.3 minutes Dose Area Product 5.6 dGycm2 Impression: Successful placement of right jugular temporary dialysis catheter, as described.
[2018-02-18] MEDS: Morphine Sulfate 2mg/ml Inj IVP PRN ×2 (15:37→21:43)
--- NOTE | 2018-02-18 16:47 | Nephrology Progress Note ---
Assessment/Plan Problem List: (1) CARLOS vs CARLOS on CKD (2) Ulcer of foot due to diabetes (3) HTN (hypertension) (4) Urinary retention (5) Diabetic neuropathy Assessment left foot wound infection/ulcer infection/cellulitis, ? abscess, ? osteo, leukocytosis, ? sepsis Renal failure likely acute on Chronic cr marge 5 Urinary retention: 500cc Urine after fried Anemia , etiology?? DM Elevated LFTs HypoAlbuminemia ? NS Plan arrange for HD today Keep BP and BS in check slow hydrate avoid Nephrotoxics monitor renal parameters per orders Subjective ROS Limited/Unobtainable: No Constitutional: Reports: malaise, weakness Objective Objective Last 24 Hour Vital Signs Date Time Temp Pulse Resp B/P (MAP) Pulse Ox O2 Delivery O2 Flow Rate FiO2 02/18/18 16:08 97.0 58 18 123/49 100 Room Air 97.0 02/18/18 14:51 55 15 02/18/18 14:40 55 15 141/67 95 Room Air 02/18/18 14:35 55 15 129/56 98 Room Air 02/18/18 14:30 55 15 122/80 96 Room Air 02/18/18 09:59 60 141/63 02/18/18 08:00 97.2 60 18 141/63 96 Room Air 97.2 02/18/18 04:00 96.9 70 18 140/69 98 Room Air 96.9 02/18/18 04:00 Room Air 02/18/18 00:00 96.2 62 20 136/60 97 Room Air 96.2 02/18/18 00:00 Room Air 02/17/18 20:30 96.6 Room Air 96.6 02/17/18 20:00 95.9 60 19 132/57 96 Room Air 95.9 02/17/18 18:32 97.5 02/17/18 17:33 97.5 Intake and Output 02/17/18 02/18/18 19:00 07:00 Intake Total 350.0 ml 110 ml Output Total 500 ml 200 ml Balance -150.0 ml -90 ml Intake Oral 240 ml IV Total 110.0 ml 110 ml Output Urine Total 500 ml 200 ml Laboratory Tests 02/18/18 01:40: Urine Eosinophils None seen 02/18/18 05:40: White Blood Count 30.1*H, Red Blood Count 3.16L, Hemoglobin 8.4L, Hematocrit 25.3L, Mean Corpuscular Volume 80, Mean Corpuscular Hemoglobin 26.4L, Mean Corpuscular Hemoglobin Concent 33.1, Red Cell Distribution Width 15.3H, Platelet Count 246, Mean Platelet Volume 8.3, Neutrophils (%) (Auto) , Lymphocytes (%) (Auto) , Monocytes (%) (Auto) , Eosinophils (%) (Auto) , Basophils (%) (Auto) , Differential Total Cells Counted 100, Neutrophils % ( Manual) 78H, Lymphocytes % (Manual) 11L, Monocytes % (Manual) 5, Eosinophils % ( Manual) 1, Basophils % (Manual) 0, Band Neutrophils 5, Platelet Estimate Adequate, Platelet Morphology Normal, Hypochromasia 1+, Anisocytosis 1+, Sodium Level 130L, Potassium Level 3.9, Chloride Level 96L, Carbon Dioxide Level 20L, Anion Gap 14, Blood Urea Nitrogen 110H, Creatinine 5.3H, Estimat Glomerular Filtration Rate 9.8, Glucose Level 81, Calcium Level 8.3L, Total Bilirubin 0.8, Aspartate Amino Transf (AST/SGOT) 32, Alanine Aminotransferase (ALT/SGPT) 70, Alkaline Phosphatase 226H, Total Protein 7.2, Albumin 1.6L, Globulin 5.6, Albumin/Globulin Ratio 0.3L, Random Vancomycin Level 18.8 Height (Feet): 5 Height (Inches): 11.00 Weight (Pounds): 190 General Appearance: no apparent distress Objective no other change TOLU GRIFFITH Feb 18, 2018 16:47
--- NOTE | 2018-02-18 17:22 | Cardiac Electrophysiology PN ---
Subjective Subjective Dictated [id number] Objective Last 24 Hour Vital Signs Date Time Temp Pulse Resp B/P (MAP) Pulse Ox O2 Delivery O2 Flow Rate FiO2 02/18/18 16:08 97.0 58 18 123/49 100 Room Air 97.0 02/18/18 14:51 55 15 02/18/18 14:40 55 15 141/67 95 Room Air 02/18/18 14:35 55 15 129/56 98 Room Air 02/18/18 14:30 55 15 122/80 96 Room Air 02/18/18 09:59 60 141/63 02/18/18 08:00 97.2 60 18 141/63 96 Room Air 97.2 02/18/18 04:00 96.9 70 18 140/69 98 Room Air 96.9 02/18/18 04:00 Room Air 02/18/18 00:00 96.2 62 20 136/60 97 Room Air 96.2 02/18/18 00:00 Room Air 02/17/18 20:30 96.6 Room Air 96.6 02/17/18 20:00 95.9 60 19 132/57 96 Room Air 95.9 02/17/18 18:32 97.5 02/17/18 17:33 97.5 Intake and Output 02/17/18 02/18/18 19:00 07:00 Intake Total 350.0 ml 110 ml Output Total 500 ml 200 ml Balance -150.0 ml -90 ml Intake Oral 240 ml IV Total 110.0 ml 110 ml Output Urine Total 500 ml 200 ml Laboratory Tests Test 02/18/18 01:40 02/18/18 05:40 Urine Eosinophils None seen White Blood Count 30.1 K/UL (4.8-10.8) *H Red Blood Count 3.16 M/UL (4.20-5.40) L Hemoglobin 8.4 G/DL (12.0-16.0) L Hematocrit 25.3 % (37.0-47.0) L Mean Corpuscular Volume 80 FL (80-99) Mean Corpuscular Hemoglobin 26.4 PG (27.0-31.0) L Mean Corpuscular Hemoglobin Concent 33.1 G/DL (32.0-36.0) Red Cell Distribution Width 15.3 % (11.6-14.8) H Platelet Count 246 K/UL (150-450) Mean Platelet Volume 8.3 FL (6.5-10.1) Neutrophils (%) (Auto) % (45.0-75.0) Lymphocytes (%) (Auto) % (20.0-45.0) Monocytes (%) (Auto) % (1.0-10.0) Eosinophils (%) (Auto) % (0.0-3.0) Basophils (%) (Auto) % (0.0-2.0) Differential Total Cells Counted 100 Neutrophils % (Manual) 78 % (45-75) H Lymphocytes % (Manual) 11 % (20-45) L Monocytes % (Manual) 5 % (1-10) Eosinophils % (Manual) 1 % (0-3) Basophils % (Manual) 0 % (0-2) Band Neutrophils 5 % (0-8) Platelet Estimate Adequate Platelet Morphology Normal Hypochromasia 1+ Anisocytosis 1+ Sodium Level 130 MMOL/L (136-145) L Potassium Level 3.9 MMOL/L (3.5-5.1) Chloride Level 96 MMOL/L (98-107) L Carbon Dioxide Level 20 MMOL/L (21-32) L Anion Gap 14 mmol/L (5-15) Blood Urea Nitrogen 110 mg/dL (7-18) H Creatinine 5.3 MG/DL (0.55-1.30) H Estimat Glomerular Filtration Rate 9.8 mL/min (>60) Glucose Level 81 MG/DL (74-106) Calcium Level 8.3 MG/DL (8.5-10.1) L Total Bilirubin 0.8 MG/DL (0.2-1.0) Aspartate Amino Transf (AST/SGOT) 32 U/L (15-37) Alanine Aminotransferase (ALT/SGPT) 70 U/L (12-78) Alkaline Phosphatase 226 U/L (46-116) H Total Protein 7.2 G/DL (6.4-8.2) Albumin 1.6 G/DL (3.4-5.0) L Globulin 5.6 g/dL Albumin/Globulin Ratio 0.3 (1.0-2.7) L Random Vancomycin Level 18.8 ug/mL Microbiology Date/Time Source Procedure Growth Status 02/15/18 21:00 Blood Blood Culture - Preliminary Staphylococcus Aureus Resulted 02/15/18 20:50 Blood Blood Culture - Preliminary Staphylococcus Aureus Resulted Gustabo Concepcion MD Feb 18, 2018 17:22
[2018-02-18] MEDS: Levemir Flexpen SUBQ SCH (18:24)
--- NOTE | 2018-02-18 18:58 | Cardiology Report ---
APPROVED REPORT EXAM: Two-dimensional and M-mode echocardiogram with Doppler and color Doppler. INDICATION Veg[employer] M-Mode DIMENSIONS IVSd1.1 (0.7-1.1cm)Left Atrium (MM)3.6 (1.6-4.0cm) LVDd3.8 (3.5-5.6cm)Aortic Root2.4 (2.0-3.7cm) PWd1.1 (0.7-1.1cm)Aortic Cusp Exc.1.7 (1.5-2.0cm) LVDs2.5 (2.5-4.0cm) PWs1.6 cm Normal left ventricular chamber size, systolic function and wall motion. Left ventricular ejection fraction estimated to be 55 %. Borderline left ventricular hypertrophy. Anterior Echo-free space, may be due to pericardial fat or effusion. All other cardiac chamber sizes are within normal limits. Focal aortic valve sclerosis with adequate cusp excursion. Thickened mitral valve leaflets with normal excursion. Heavy mitral annulus and aortic root calcification. Normal pulmonic valve structure. Normal tricuspid valve structure. IVC dilated at 2.4 cm with physiological collapse. No discrete vegetations seen, however SBE may not be excluded by transthoracic 2-D echo. Consider YONATHAN if clinically indicated. A color flow and spectral Doppler study was performed and revealed: Trace aortic insufficiency. Mild mitral regurgitation. reduced left ventricular relaxation c/w impaired relaxation diastolic dysfunction. Mild tricuspid regurgitation. Tricuspid systolic velocities suggests peak right ventricular systolic pressure of 51 mmHg, consistent with moderate pulmonary hypertension. Trace pulmonic regurgitation present.
--- NOTE | 2018-02-18 19:21 | Podiatric Progress Note ---
Assessment/Plan Patient Jesika Brito is a 67 year old female who was admitted on Feb 13, 2018 at 22:30 with Assessment/Plan A/ 1) Cellulitis and abscess left foot 2) DM foot ulcers 3) DM neuropathy 4) HAV P/ 1) Abx per ID 2) awaiting transfer to [facility] 3) Patient was scheduled for debridement today but rescheduled for tomorrow AM. Anesthesia wanted patient dialyzed before surgery. 4) Patient and sister advised that her condition is dire. Advised patient and sister that some level of amputation will likely be needed. Patient refused. Advised patient that she has a limb and life threatening infection she may require amputation to treat her infection. She continued to refuse. Will debride tomorrow due to lack of consent to amputate if needed. 5) Case was discussed with PMD and all consultants. Subjective Allergies: Coded Allergies: No Known Allergies (Unverified , 12/10/17) Subjective Patient is feeling better than over the weekend. Her sister is at bedside and she is being dialyzed now. Objective Exam Last 24 Hour Vital Signs Date Time Temp Pulse Resp B/P (MAP) Pulse Ox O2 Delivery O2 Flow Rate FiO2 02/18/18 16:08 97.0 58 18 123/49 100 Room Air 97.0 02/18/18 14:51 55 15 02/18/18 14:40 55 15 141/67 95 Room Air 02/18/18 14:35 55 15 129/56 98 Room Air 02/18/18 14:30 55 15 122/80 96 Room Air 02/18/18 09:59 60 141/63 02/18/18 08:00 97.2 60 18 141/63 96 Room Air 97.2 02/18/18 04:00 96.9 70 18 140/69 98 Room Air 96.9 02/18/18 04:00 Room Air 02/18/18 00:00 96.2 62 20 136/60 97 Room Air 96.2 02/18/18 00:00 Room Air 02/17/18 20:30 96.6 Room Air 96.6 02/17/18 20:00 95.9 60 19 132/57 96 Room Air 95.9 Laboratory Tests Test 02/18/18 01:40 02/18/18 05:40 Urine Eosinophils None seen White Blood Count 30.1 K/UL (4.8-10.8) *H Red Blood Count 3.16 M/UL (4.20-5.40) L Hemoglobin 8.4 G/DL (12.0-16.0) L Hematocrit 25.3 % (37.0-47.0) L Mean Corpuscular Volume 80 FL (80-99) Mean Corpuscular Hemoglobin 26.4 PG (27.0-31.0) L Mean Corpuscular Hemoglobin Concent 33.1 G/DL (32.0-36.0) Red Cell Distribution Width 15.3 % (11.6-14.8) H Platelet Count 246 K/UL (150-450) Mean Platelet Volume 8.3 FL (6.5-10.1) Neutrophils (%) (Auto) % (45.0-75.0) Lymphocytes (%) (Auto) % (20.0-45.0) Monocytes (%) (Auto) % (1.0-10.0) Eosinophils (%) (Auto) % (0.0-3.0) Basophils (%) (Auto) % (0.0-2.0) Differential Total Cells Counted 100 Neutrophils % (Manual) 78 % (45-75) H Lymphocytes % (Manual) 11 % (20-45) L Monocytes % (Manual) 5 % (1-10) Eosinophils % (Manual) 1 % (0-3) Basophils % (Manual) 0 % (0-2) Band Neutrophils 5 % (0-8) Platelet Estimate Adequate Platelet Morphology Normal Hypochromasia 1+ Anisocytosis 1+ Sodium Level 130 MMOL/L (136-145) L Potassium Level 3.9 MMOL/L (3.5-5.1) Chloride Level 96 MMOL/L (98-107) L Carbon Dioxide Level 20 MMOL/L (21-32) L Anion Gap 14 mmol/L (5-15) Blood Urea Nitrogen 110 mg/dL (7-18) H Creatinine 5.3 MG/DL (0.55-1.30) H Estimat Glomerular Filtration Rate 9.8 mL/min (>60) Glucose Level 81 MG/DL (74-106) Calcium Level 8.3 MG/DL (8.5-10.1) L Total Bilirubin 0.8 MG/DL (0.2-1.0) Aspartate Amino Transf (AST/SGOT) 32 U/L (15-37) Alanine Aminotransferase (ALT/SGPT) 70 U/L (12-78) Alkaline Phosphatase 226 U/L (46-116) H Total Protein 7.2 G/DL (6.4-8.2) Albumin 1.6 G/DL (3.4-5.0) L Globulin 5.6 g/dL Albumin/Globulin Ratio 0.3 (1.0-2.7) L Random Vancomycin Level 18.8 ug/mL Microbiology Date/Time Source Procedure Growth Status 02/15/18 21:00 Blood Blood Culture - Preliminary Staphylococcus Aureus Resulted 02/15/18 04:30 Urine,Clean Catch Urine Culture - Final NO GROWTH AFTER 48 HOURS Complete 02/14/18 12:15 Foot Left Gram Stain - Final Complete 02/14/18 12:15 Wound Culture - Final Escherichia Coli Staphylococcus Aureus - Mrsa Complete Lawson Ch DPM Feb 18, 2018 19:21
[2018-02-19] VITALS (15 sets, daily range): BP systolic 91–153; BP diastolic 42–71
--- NOTE | 2018-02-19 01:12 | General Progress Note ---
Assessment/Plan Assessment/Plan 1. Leukocytosis, likely secondary to osteomyelitis, Staph aureus bacteremia as well. --> No evidence of leukemia at this time. --> Normal differential besides neutrophilia noted. Labs have been reviewed. --> Continue broad-spectrum antibiotics as per ID Service. --> Continue to closely monitor. Discussed with primary team. 2. Anemia due to underlying chronic disease. --> Closely monitor. Anemia workup from before has been reviewed. --> Iron 29, TIBC 115, B12 >2000, Folate 12, TSH 0.991 3. Coagulopathy, likely related to decreased p.o. intake. --> Decreased albumin. Closely monitor per primary team. --> Consider administration of vitamin K in the case of patient bleeding. 4. Left foot gangrene with clinical osteomyelitis. Consider foot debridement and drainage per Podiatry team. --> Antibiotics as per ID Service. Closely monitor per Podiatry recommendations. 5. Cellulitis of left lower extremity. She is on broad-spectrum antibiotics Subjective Date patient seen: Feb 18, 2018 Constitutional: Denies: no symptoms, chills, diaphoresis, fever, malaise, weakness, other HEENT: Denies: no symptoms, eye pain, blurred vision, tearing, double vision, ear pain, ear discharge, nose pain, nose congestion, throat pain, throat swelling, mouth pain, mouth swelling, other Cardiovascular: Denies: no symptoms, chest pain, edema, irregular heart rate, lightheadedness, palpitations, syncope, other Respiratory: Denies: no symptoms, cough, orthopnea, shortness of breath, SOB with excertion, SOB at rest, sputum, stridor, wheezing, other Gastrointestinal/Abdominal: Denies: no symptoms, abdomen distended, abdominal pain, black stools, tarry stools, blood in stool, constipated, diarrhea, difficulty swallowing, nausea, poor appetite, poor fluid intake, rectal bleeding , vomiting, other Genitourinary: Denies: no symptoms, burning, discharge, frequency, flank pain, hematuria, incontinence, pain, urgency, other Neurologic/Psychiatric: Denies: no symptoms, anxiety, depressed, emotional problems, headache, numbness, paresthesia, pre-existing deficit, seizure, tingling, tremors, weakness, other Hematologic/Lymphatic: Reports: anemia Allergies: Coded Allergies: No Known Allergies (Unverified , 12/10/17) Subjective On antibiotic treatment. Leukocytosis. No fever Objective Last 24 Hour Vital Signs Date Time Temp Pulse Resp B/P (MAP) Pulse Ox O2 Delivery O2 Flow Rate FiO2 02/18/18 21:50 Room Air 02/18/18 21:48 74 16 164/82 Room Air 02/18/18 20:00 96.3 66 19 129/64 97 96.3 02/18/18 18:30 96.3 62 12 148/68 Room Air 96.3 02/18/18 18:30 Room Air 02/18/18 16:08 97.0 58 18 123/49 100 Room Air 97.0 02/18/18 14:51 55 15 02/18/18 14:40 55 15 141/67 95 Room Air 02/18/18 14:35 55 15 129/56 98 Room Air 02/18/18 14:30 55 15 122/80 96 Room Air 02/18/18 09:59 60 141/63 02/18/18 08:00 97.2 60 18 141/63 96 Room Air 97.2 02/18/18 04:00 96.9 70 18 140/69 98 Room Air 96.9 02/18/18 04:00 Room Air Intake and Output 02/18/18 02/19/18 19:00 07:00 Output Total 300 ml 1118 ml Balance -300 ml -1118 ml Output Urine Total 300 ml Hemodialysis UF 1118 ml Laboratory Tests 02/18/18 01:40: Urine Eosinophils None seen 02/18/18 05:40: White Blood Count 30.1*H, Red Blood Count 3.16L, Hemoglobin 8.4L, Hematocrit 25.3L, Mean Corpuscular Volume 80, Mean Corpuscular Hemoglobin 26.4L, Mean Corpuscular Hemoglobin Concent 33.1, Red Cell Distribution Width 15.3H, Platelet Count 246, Mean Platelet Volume 8.3, Neutrophils (%) (Auto) , Lymphocytes (%) (Auto) , Monocytes (%) (Auto) , Eosinophils (%) (Auto) , Basophils (%) (Auto) , Differential Total Cells Counted 100, Neutrophils % ( Manual) 78H, Lymphocytes % (Manual) 11L, Monocytes % (Manual) 5, Eosinophils % ( Manual) 1, Basophils % (Manual) 0, Band Neutrophils 5, Platelet Estimate Adequate, Platelet Morphology Normal, Hypochromasia 1+, Anisocytosis 1+, Sodium Level 130L, Potassium Level 3.9, Chloride Level 96L, Carbon Dioxide Level 20L, Anion Gap 14, Blood Urea Nitrogen 110H, Creatinine 5.3H, Estimat Glomerular Filtration Rate 9.8, Glucose Level 81, Calcium Level 8.3L, Total Bilirubin 0.8, Aspartate Amino Transf (AST/SGOT) 32, Alanine Aminotransferase (ALT/SGPT) 70, Alkaline Phosphatase 226H, Total Protein 7.2, Albumin 1.6L, Globulin 5.6, Albumin/Globulin Ratio 0.3L, Random Vancomycin Level 18.8 Height (Feet): 5 Height (Inches): 11.00 Weight (Pounds): 190 General Appearance: confused Respiratory/Chest: decreased breath sounds Abdomen: soft Norman Boothe MD Feb 19, 2018 01:12
--- NOTE | 2018-02-19 06:01 | Consultation ---
DATE OF CONSULTATION: 02/18/2018 NOTE: POOR AUDIO CARDIOLOGY CONSULTATION CONSULTING PHYSICIAN: Gustabo Concepcion M.D. REFERRING PHYSICIAN: Karma Chen M.D. ADDITIONAL REFERRING PHYSICIAN: Angel Corbin M.D. REASON FOR CONSULTATION: Preoperative clearance. HISTORY OF PRESENT ILLNESS: The patient is a 67-year-old lady with history of hypertension, diabetes, and renal failure as well as arterial occlusive disease with bilateral foot wound and necrosis. The patient was originally from [place] and is currently in [facility] visiting her sister. The patient was found to have extensive infected left foot wound and abscess with pus drainage. The patient's creatinine is around 3 and has diabetes as well. A Cardiology consultation was requested for preoperative clearance as the patient would need foot debridement and drainage as well as lower extremity angiography to assess for revascularization. PAST MEDICAL HISTORY: Includes hypertension, diabetes, morbid obesity, arterial occlusive disease, bilateral foot wound and necrosis. MEDICATIONS: Per reconciliation. ALLERGIES: She has no known drug allergies. SOCIAL HISTORY: [place]. Does not smoke or drink alcohol. REVIEW OF SYSTEMS: Review of systems was performed and was negative other than what was mentioned in the history of present illness. PHYSICAL EXAMINATION: VITAL SIGNS: Blood pressure is 122/49, pulse 58, respirations 18, and she is afebrile. HEAD AND NECK: Showed no JVD. LUNGS: Clear. CARDIOVASCULAR: Regular S1 and S2 with no gallop or murmur. ABDOMEN: Obese. EXTREMITIES: Bilateral foot ulcers. LABORATORY AND DIAGNOSTIC DATA: White count of 30,000, hemoglobin of 8.4, hematocrit 25.3, and platelet count of 15.3. Sodium 130, potassium 3.9, BUN of 110, creatinine 5.3, and glucose of 81. BNP is 2146. Troponin is negative. was 18.8. INR is 1.1. ASSESSMENT AND PLAN: 1. Hypertension. Blood pressure is currently stable on mg daily. I will add p.r.n. clonidine. 2. . Her echocardiogram showed ejection fraction of 55%. The patient does not have any chest pain. No prior congestive heart failure. The patient is stable from cardiac standpoint to undergo temporary dialysis catheter placement. 3. diabetes osteomyelitis. The patient is on IV antibiotic. I will arrange for hemodialysis today per Dr. Perez. 4. Severe peripheral vascular disease. Prior to vascular surgery and angiogram, the patient would need nuclear stress test for her risk stratification. 5. Sepsis with white count of 30,000 with gram-positive bacteremia, likely cellulitis of the left lower extremity. 6. Elevated liver function test. 7. Insulin-dependent diabetes with diabetic neuropathy. 8. Hyperlipidemia. Thank you very much for allowing me to participate in the care of this patient. Please do not hesitate to contact if you have any questions regarding my evaluation. Gustabo Concepcion M.D. DR: Lyndsey JOB#: [id number] CC:
[2018-02-19] MEDS ORDERED: Bupivacaine 0.25% Inj 30ml INJ ONE (06:22)
[2018-02-19] MEDS: NovoLOG Insulin Flexpen SUBQ SCH ×5 (06:25→21:00)
[2018-02-19] MEDS ORDERED: Bacitracin 50000 Units Vial ONE (06:38)
[2018-02-19 06:52] LABS: HEMATOCRIT 26.9 % (37.0-47.0); HEMOGLOBIN 9.2 G/DL (12.0-16.0); MEAN CORPUSCULAR VOLUME 78 FL (80-99); PLATELET COUNT 260 K/UL (150-450); RED BLOOD COUNT 3.43 M/UL (4.20-5.40); RED CELL DISTRIBUTION WIDTH 14.8 % (11.6-14.8)
[2018-02-19 06:57] LABS: ALANINE AMINOTRANSFERASE 67 U/L (12-78); ALBUMIN 1.6 G/DL (3.4-5.0); ALKALINE PHOSPHATASE 228 U/L (46-116); ANION GAP 10 mmol/L (5-15); ASPARTATE AMINO TRANSFERASE 37 U/L (15-37); BILIRUBIN,DIRECT 0.5 MG/DL (0.0-0.3); BLOOD UREA NITROGEN 79 mg/dL (7-18); CALCIUM 8.5 MG/DL (8.5-10.1); CARBON DIOXIDE 28 MMOL/L (21-32); CHLORIDE 95 MMOL/L (98-107); CREATININE 4.2 MG/DL (0.55-1.30); PHOSPHORUS 5.8 MG/DL (2.5-4.9); POTASSIUM 3.6 MMOL/L (3.5-5.1); SODIUM 133 MMOL/L (136-145)
--- NOTE | 2018-02-19 06:57 | Pre-Procedure Note/Attestation ---
Pre-Procedure Note/Attestation Complete Prior to Procedure Planned Procedure: bilateral Procedure Narrative: Debridement of necrotic bone and tissue bilateral feet Indications for Procedure Pre-Operative Diagnosis: 1) Abscess cellulitis left foot 2) Diabetic foot ulcers 3) PAD 4) DM 5) CARLOS Attestation I attest that I discussed the nature of the procedure; its benefits; risks and complications; and alternatives (and the risks and benefits of such alternatives ), prior to the procedure, with the patient (or the patient's legal automotive leasing sales representative). I attest that, if there was a reasonable possibility of needing a blood transfusion, the patient (or the patient's legal automotive leasing sales representative) was given the [place] Department of Health Services standardized written summary, pursuant to the [place] Blood Safety Act ([place] Health and Safety Code # 1645, as amended). I attest that I re-evaluated the patient just prior to the surgery and that there has been no change in the patient's H&P, except as documented below: Lawson Ch DPM Feb 19, 2018 06:57
[2018-02-19] MEDS ORDERED: Sterile Water Irrig 1000ml IRRIG ONE (07:00)
[2018-02-19] MEDS ORDERED: fentaNYL 100 mcg/2 mL IV ONE (07:00)
[2018-02-19] MEDS ORDERED: NS Irrig 1000ml ONE (07:00)
[2018-02-19] MEDS ORDERED: Midazolam 2mg/2ml Inj ONE (07:00)
[2018-02-19] MEDS ORDERED: LR 1000ml ONE (07:00)
[2018-02-19] MEDS ORDERED: Propofol 200mg/20ml IV ONE (07:00)
[2018-02-19 07:34] LABS: WHITE BLOOD COUNT 26.8 K/UL (4.8-10.8)
--- NOTE | 2018-02-19 07:38 | Anethesia Preoperative Eval ---
Anesthesia Pre-op PMH/ROS General Date of Evaluation: Feb 19, 2018 Time of Evaluation: 06:52 Anesthesiologist: Osvaldo ASA Score: ASA 4 Mallampati Score Class I : Soft palate, uvula, fauces, pillars visible Class II: Soft palate, uvula, fauces visible Class III: Soft palate, base of uvula visible Class IV: Only hard plate visible Mallampati Classification: Class III Surgeon: Christie Diagnosis: Bilateral feet gangreen` Surgical Procedure: I&D bilateral feet Anesthesia History: none Family History: no anesthesia problems Allergies: Coded Allergies: No Known Allergies (Unverified , 12/10/17) Medications: see eMAR Past Medical History Cardiovascular: Reports: HTN; Denies: CAD, [place], valve dz, arrhythmia, other Pulmonary: Reports: RAMYA; Denies: asthma, COPD, other Gastrointestinal/Genitourinary: Reports: GERD, ESRD Neurologic/Psychiatric: Reports: depression/anxiety, other - Diabetic neuropathy; Denies: dementia, CVA, TIA HEENT: Denies: cataract (L), cataract (R), glaucoma, KAKE (L), KAKE (R), other Hematology/Immune: Reports: anemia - severe anemia; Denies: DVT, bleeding disorder, other Other: obesity PMH Narrative: as above PSxH Narrative: Hysterectomy Anesthesia Pre-op Phys. Exam Physician Exam Last Vital Signs Date Time Temp Pulse Resp B/P (MAP) Pulse Ox O2 Delivery O2 Flow Rate FiO2 02/19/18 04:00 98.5 87 18 146/64 96 98.5 02/19/18 04:00 Room Air Neurologic: other - unable to obtaine Cardiovascular: RRR Respiratory: CTA Gastrointestinal: other - obesity Airway Exam Mallampati Score: Class III MO: limited Neck: stiff ROM: limited Teeth: missing Dentures: no upper, no lower Anesthesia Pre-op A/P Labs Hematology Test 02/19/18 06:00 White Blood Count Pending Red Blood Count Pending Hemoglobin Pending Hematocrit Pending Mean Corpuscular Volume Pending Mean Corpuscular Hemoglobin Pending Mean Corpuscular Hemoglobin Concent Pending Red Cell Distribution Width Pending Platelet Count Pending Mean Platelet Volume Pending Neutrophils (%) (Auto) Pending Lymphocytes (%) (Auto) Pending Monocytes (%) (Auto) Pending Eosinophils (%) (Auto) Pending Basophils (%) (Auto) Pending Chemistry Test 02/19/18 06:00 Sodium Level 133 MMOL/L (136-145) L Potassium Level 3.6 MMOL/L (3.5-5.1) Chloride Level 95 MMOL/L (98-107) L Carbon Dioxide Level 28 MMOL/L (21-32) Anion Gap 10 mmol/L (5-15) Blood Urea Nitrogen 79 mg/dL (7-18) H Creatinine 4.2 MG/DL (0.55-1.30) H Estimat Glomerular Filtration Rate 12.8 mL/min (>60) Glucose Level 173 MG/DL (74-106) H Uric Acid 10.8 MG/DL (2.6-7.2) H Calcium Level 8.5 MG/DL (8.5-10.1) Phosphorus Level 5.8 MG/DL (2.5-4.9) H Magnesium Level 2.4 MG/DL (1.8-2.4) Total Bilirubin 1.0 MG/DL (0.2-1.0) Direct Bilirubin 0.5 MG/DL (0.0-0.3) H Aspartate Amino Transf (AST/SGOT) 37 U/L (15-37) Alanine Aminotransferase (ALT/SGPT) 67 U/L (12-78) Alkaline Phosphatase 228 U/L (46-116) H C-Reactive Protein, Quantitative 14.8 mg/dL (0.00-0.90) H Total Protein 7.7 G/DL (6.4-8.2) Albumin 1.6 G/DL (3.4-5.0) L Studies Pre-op Studies: EKG - SR, echo - EF 55% Risk Assessment & Plan Assessment: ASA 4 Severe sepsis with all preexisting conditions Plan: GA with LMA Status Change Before Surgery: No Pre-Antibiotics Drug: Ancef 1gr. Given Within 1 Hr of Incision: Yes Time Given: 07:12 MILADIS MANZANO M.D. Feb 19, 2018 07:38
[2018-02-19] MEDS ORDERED: LR 1000ml 1,000 ML IVLG SCH (07:47)
[2018-02-19] MEDS ORDERED: DiphenhydrAMINE 50mg/ml Inj IVP PRN (08:00)
[2018-02-19] MEDS ORDERED: Midazolam 2mg/2ml Inj IVP PRN (08:00)
[2018-02-19] MEDS ORDERED: Hydromorphone 0.5mg/0.5ml inj IVP PRN (08:00)
--- NOTE | 2018-02-19 08:10 | Brief Operative Note ---
Immediate Post Operative Note Operative Note Chief Complaint: Dict# [id number] Pre-op Diagnosis: 1) Abscess cellulitis left foot 2) Diabetic foot ulcers 3) PAD 4) DM 5) CARLOS Procedure: 1) Excisional debridement of right foot DM ulcer to level of subq 2) Incision and drainage of left foot abscess deep to fascia 3) Excisional debridement of left foot DM ulcer to level of bone Post-op Diagnosis: same as pre-op Surgeon: Lawson Ch Assembly Manager: none Additional Surgeons: none Anesthesiologist: Dr Riley Anesthesia: general, local - 10cc 0.25% plain marcaine ankle blocks bilateral Specimen: yes - Deep culture of tissue Complications: none Condition: stable Fluids: per anesthesia Estimated Blood Loss: volume - 15 Drains: other - packing Packing: yes Implant(s) used?: No Lawson Ch DPM Feb 19, 2018 08:10
--- NOTE | 2018-02-19 08:21 | Immediate Post-Op Evaluation ---
Immediate Post-Op Evalulation Immediate Post-Op Evalulation Procedure: I&D of bilateral feet gangreen Date of Evaluation: Feb 19, 2018 Time of Evaluation: 08:20 IV Fluids: 400 Blood Products: none Estimated Blood Loss: <50 Urinary Output: 50 Blood Pressure Systolic: 112 Blood Pressure Diastolic: 54 Pulse Rate: 65 Respiratory Rate: 22 O2 Sat by Pulse Oximetry: 99 Temperature (Fahrenheit): 97.8 Pain Score (1-10): 2 Nausea: No Vomiting: No Complications none Patient Status: awake, patent, none Hydration Status: adequate MILADIS MANZANO M.D. Feb 19, 2018 08:21
[2018-02-19] MEDS: Meropenem 500 MG in NS 55 ML IVPB SCH (09:21)
[2018-02-19] MEDS: Docusate 100mg cap ORAL SCH ×3 (09:22→21:00)
[2018-02-19] MEDS: Heparin 5000 units/ml inj SUBQ SCH ×2 (09:26→21:00)
--- NOTE | 2018-02-19 11:47 | Nephrology Progress Note ---
Assessment/Plan Problem List: (1) CARLOS vs CARLOS on CKD (2) Ulcer of foot due to diabetes (3) HTN (hypertension) (4) Urinary retention (5) Diabetic neuropathy Assessment left foot wound infection/ulcer infection/cellulitis, ? abscess, ? osteo, leukocytosis, ? sepsis Debridement of necrotic bone and tissue bilateral feet 02/19 Renal failure likely acute on Chronic cr marge 5 Urinary retention: 500cc Urine after fried Anemia , etiology?? DM Elevated LFTs HypoAlbuminemia ? NS Plan dialysis 02/18 next 02/20 Keep BP and BS in check avoid Nephrotoxics monitor renal parameters per orders Subjective ROS Limited/Unobtainable: No Constitutional: Reports: malaise Objective Objective Last 24 Hour Vital Signs Date Time Temp Pulse Resp B/P (MAP) Pulse Ox O2 Delivery O2 Flow Rate FiO2 02/19/18 09:22 64 118/61 02/19/18 09:00 97.5 02/19/18 08:55 97.5 64 15 118/61 100 Nasal Cannula 3.0 97.5 02/19/18 08:40 64 13 121/62 100 Simple Mask 6.0 02/19/18 08:30 97.2 02/19/18 08:30 64 13 120/61 100 Simple Mask 6.0 02/19/18 08:21 208.0 65 22 99 02/19/18 08:19 64 18 115/59 100 Simple Mask 6.0 02/19/18 08:14 63 19 112/50 100 Simple Mask 6.0 02/19/18 08:09 97.1 63 19 99/55 100 Simple Mask 6.0 97.1 02/19/18 04:00 98.5 87 18 146/64 96 98.5 02/19/18 04:00 Room Air 02/19/18 00:00 Room Air 02/19/18 00:00 97.9 86 19 153/71 94 97.9 02/18/18 21:50 Room Air 02/18/18 21:48 74 16 164/82 Room Air 02/18/18 20:00 96.3 66 19 129/64 97 96.3 02/18/18 18:30 96.3 62 12 148/68 Room Air 96.3 02/18/18 18:30 Room Air 02/18/18 16:08 97.0 58 18 123/49 100 Room Air 97.0 02/18/18 14:51 55 15 02/18/18 14:40 55 15 141/67 95 Room Air 02/18/18 14:35 55 15 129/56 98 Room Air 02/18/18 14:30 55 15 122/80 96 Room Air Intake and Output 02/18/18 02/19/18 19:00 07:00 Output Total 300 ml 1518 ml Balance -300 ml -1518 ml Output Urine Total 300 ml 400 ml Hemodialysis UF 1118 ml Laboratory Tests 02/19/18 06:00: White Blood Count 26.8*H, Red Blood Count 3.43L, Hemoglobin 9.2L, Hematocrit 26.9L, Mean Corpuscular Volume 78L, Mean Corpuscular Hemoglobin 26.8L, Mean Corpuscular Hemoglobin Concent 34.2, Red Cell Distribution Width 14.8, Platelet Count 260, Mean Platelet Volume 9.9, Neutrophils (%) (Auto) , Lymphocytes (%) ( Auto) , Monocytes (%) (Auto) , Eosinophils (%) (Auto) , Basophils (%) (Auto) , Differential Total Cells Counted 100, Neutrophils % (Manual) 87H, Lymphocytes % (Manual) 8L, Monocytes % (Manual) 3, Eosinophils % (Manual) 1, Basophils % ( Manual) 0, Band Neutrophils 1, Platelet Estimate Adequate, Platelet Morphology Normal, Hypochromasia 1+, Sodium Level 133L, Potassium Level 3.6, Chloride Level 95L, Carbon Dioxide Level 28, Anion Gap 10, Blood Urea Nitrogen 79H, Creatinine 4.2H, Estimat Glomerular Filtration Rate 12.8, Glucose Level 173H, Uric Acid 10.8H, Calcium Level 8.5, Phosphorus Level 5.8H, Magnesium Level 2.4, Total Bilirubin 1.0, Direct Bilirubin 0.5H, Aspartate Amino Transf (AST/SGOT) 37 , Alanine Aminotransferase (ALT/SGPT) 67, Alkaline Phosphatase 228H, C-Reactive Protein, Quantitative 14.8H, Total Protein 7.7, Albumin 1.6L Height (Feet): 5 Height (Inches): 9.00 Weight (Pounds): 190 General Appearance: no apparent distress EENT: other - right neck Angel Cardiovascular: normal rate Respiratory/Chest: decreased breath sounds Abdomen: soft Extremities: other - post op Objective no other change TOLU GRIFFITH Feb 19, 2018 11:47
[2018-02-19] MEDS ORDERED: Allopurinol 100mg Tab ORAL SCH (12:00)
--- NOTE | 2018-02-19 12:00 | Operative Note - Dictated ---
DATE OF OPERATION: 02/19/2018 SURGEON: Lawson Ch D.P.M. ENGINE LATHE SET UP OPERATOR SURGEON: None. ANESTHESIOLOGIST: John Riley M.D. TYPE OF ANESTHESIA: General with bilateral ankle blocks utilizing 10 mL of 0.25% plain Marcaine in total. PREOPERATIVE DIAGNOSES: 1. Abscess and cellulitis, left foot. 2. Diabetic foot ulcers bilaterally. 3. Peripheral arterial disease. 4. Diabetes mellitus. 5. Acute kidney injury. POSTOPERATIVE DIAGNOSES: 1. Abscess and cellulitis, left foot. 2. Diabetic foot ulcers bilaterally. 3. Peripheral arterial disease. 4. Diabetes mellitus. 5. Acute kidney injury. PROCEDURE PERFORMED: 1. Excisional debridement of right foot diabetic ulcer to the level of subcutaneous. 2. Incision and drainage of left foot abscess deep to the fascia. 3. Excisional debridement of left foot diabetic ulcer to the level of bone. SPECIMENS: Cultures were sent of tissue, deep tissue. COMPLICATIONS: None. CONDITION: PACU, stable. ESTIMATED BLOOD LOSS: Approximately 15 mL. IMPLANTS: No implants were used. ANTIBIOTICS: Given on the floor. OPERATIVE PROCEDURE: The patient was transported to the operating room and placed on the operating table in supine position. Time-out was taken. Anesthesiologist then began general anesthesia. Bilateral feet were scrubbed, prepped, and draped in an usual aseptic manner. After anesthesia check, right foot was debrided, excisional debridement was performed down to subcutaneous. Minimal bleeding was noted. No signs of acute infection were noted. Wound was flushed and then dressings were applied at the time and then attention was directed to the left foot where the probe was utilized to identify the tracking of the infection. A linear incision was placed over the probe deep to muscle and fascia, immediate purulence was noted. Dorsal pocket was explored and noted to be of minimal substance and very little infection. Majority of the abscess was noted to be in the plantar compartment deep all the way to calcaneus. Extensive debridement was performed of necrotic tissue. Wound was copiously flushed. Gloves were changed. New instrumentation was utilized to pack the wound. Dressings were applied. The patient tolerated the procedure and anesthesia well. We will resume previous diet, medications, and wound care. This patient's limb salvage prognosis is poor due to her comorbidities. We will continue to follow this patient. Lawson Ch D.P.M. DR: ISABEL JOB#: [id number] CC:
--- NOTE | 2018-02-19 13:55 | Neurology Progress Note ---
Interim History Interim History ROS Limited/Unobtainable: No Objective Physical Exam Last Vital Signs Date Time Temp Pulse Resp B/P (MAP) Pulse Ox O2 Delivery O2 Flow Rate FiO2 02/19/18 12:00 97.1 63 16 121/63 98 97.1 02/19/18 08:55 Nasal Cannula 3.0 Laboratory Tests Test 02/19/18 06:00 White Blood Count 26.8 K/UL (4.8-10.8) *H Red Blood Count 3.43 M/UL (4.20-5.40) L Hemoglobin 9.2 G/DL (12.0-16.0) L Hematocrit 26.9 % (37.0-47.0) L Mean Corpuscular Volume 78 FL (80-99) L Mean Corpuscular Hemoglobin 26.8 PG (27.0-31.0) L Mean Corpuscular Hemoglobin Concent 34.2 G/DL (32.0-36.0) Red Cell Distribution Width 14.8 % (11.6-14.8) Platelet Count 260 K/UL (150-450) Mean Platelet Volume 9.9 FL (6.5-10.1) Neutrophils (%) (Auto) % (45.0-75.0) Lymphocytes (%) (Auto) % (20.0-45.0) Monocytes (%) (Auto) % (1.0-10.0) Eosinophils (%) (Auto) % (0.0-3.0) Basophils (%) (Auto) % (0.0-2.0) Differential Total Cells Counted 100 Neutrophils % (Manual) 87 % (45-75) H Lymphocytes % (Manual) 8 % (20-45) L Monocytes % (Manual) 3 % (1-10) Eosinophils % (Manual) 1 % (0-3) Basophils % (Manual) 0 % (0-2) Band Neutrophils 1 % (0-8) Platelet Estimate Adequate Platelet Morphology Normal Hypochromasia 1+ Sodium Level 133 MMOL/L (136-145) L Potassium Level 3.6 MMOL/L (3.5-5.1) Chloride Level 95 MMOL/L (98-107) L Carbon Dioxide Level 28 MMOL/L (21-32) Anion Gap 10 mmol/L (5-15) Blood Urea Nitrogen 79 mg/dL (7-18) H Creatinine 4.2 MG/DL (0.55-1.30) H Estimat Glomerular Filtration Rate 12.8 mL/min (>60) Glucose Level 173 MG/DL (74-106) H Uric Acid 10.8 MG/DL (2.6-7.2) H Calcium Level 8.5 MG/DL (8.5-10.1) Phosphorus Level 5.8 MG/DL (2.5-4.9) H Magnesium Level 2.4 MG/DL (1.8-2.4) Total Bilirubin 1.0 MG/DL (0.2-1.0) Direct Bilirubin 0.5 MG/DL (0.0-0.3) H Aspartate Amino Transf (AST/SGOT) 37 U/L (15-37) Alanine Aminotransferase (ALT/SGPT) 67 U/L (12-78) Alkaline Phosphatase 228 U/L (46-116) H C-Reactive Protein, Quantitative 15.7 mg/dL (0.00-0.90) H Total Protein 7.7 G/DL (6.4-8.2) Albumin 1.6 G/DL (3.4-5.0) L Impression/Recommendations Problems: (1) acute cervical myelopathy with quadriplegia, sensory loss c7 down. (2) Diabetic neuropathy (3) Fibromyalgia Status: stable, unchanged Recommendations ##[id number] MILAGRO VILLALBA Feb 19, 2018 13:55
[2018-02-19] MEDS ORDERED: Surgicel 4in x 8in TOPIC ONE (16:35)
--- NOTE | 2018-02-19 17:00 | Diagnostic Imaging Report ---
Indication: Sudden onset of upper extremity weakness Technique: sagittal T1 fast spin echo, axial T1 FLAIR, axial T2 FLAIR, axial T2 FS PROPELLER, axial T2* GRE, axial diffusion weighted images. ADC and exponential ADC maps generated Comparison: none Findings: No abnormal areas of restricted diffusion to suggest acute infarction. No acute hemorrhage or edema. However, small punctate foci of susceptibility artifact are seen within the bilateral thalami and in the left hypothalamus and the left temporal lobe, consistent with old microhemorrhages. Old lacunar infarct is seen in the posterior aspect of the left caudate head. There is also an old lacunar infarct in the anterior right lentiform nucleus. There is mild age-related enlargement of the ventricles and extra-axial CSF spaces. No mass effect nor midline shift. The vascular flow voids are preserved. There is confluent mild increased periventricular T2 signal. Old lacunar infarcts are seen in the posterior bilateral basal ganglia.. There is evidence of prior bilateral cataract surgery. The sinuses are clear.. Impression: Negative for acute intracranial bleed, mass effect, or infarct Scattered areas of susceptibility artifact consistent with old microhemorrhages Chronic and age-related changes, as described, including multiple old infarcts Findings discussed by phone with Dr. Lam at the time of interpretation
--- NOTE | 2018-02-19 17:12 | Diagnostic Imaging Report ---
Indication: Sudden onset of upper extremity weakness Technique: Sagittal T1 FLAIR PROPELLER, sagittal T2 PROPELLOR, sagittal STIR, axial T2 PROPELLER, axial 3D COSMIC ASPIR images were obtained through the cervical spine Comparison: none Findings: There is some image degradation due to motion artifact, particularly on the axial images. There is slight straightening of the normal cervical lordosis with slight reversal of the cervical lordosis in the mid cervical spine. There is markedly decreased T1 signal in C5 and C6, less strikingly decreased T2 signal, and only minimally increased STIR signal. There is narrowing of the disc, and high T2 and STIR signal within the disc. There is circumferential annular bulge and posterior osteophytes. This results in narrowing of the spinal canal to about 5 mm minimum AP diameter. The posterior osteophytes are asymmetric, and may impinge significantly upon the right lateral recess. There is moderate to severe neural foraminal stenosis at this level bilaterally. There is questionably high T2 signal in the prevertebral soft tissues between C3 and C6 which could indicate inflammation/infection. At C3-4, there is circumferential annular bulge and posterior disc protrusion. This results in central impingement on the cord and narrowing of the spinal canal to under 5 mm. The neural foramina are not well demonstrated but probably nonstenotic. The disc space is preserved. At C4-5, the disc is mildly narrowed. Posterior osteophytes result in asymmetric narrowing of the spinal canal, 7 mm centrally but with likely impingement on the right lateral recess more focally. There is mild right and moderate to severe left neural foraminal stenosis at this level. Anterior to the spinal canal at the C7 level, possibly extending cephalad to the C6 level, there is some high T2 signal, an area which measures 7 mm transverse by 4 mm AP and is located to the right of midline. This is poorly delineated on the axial T2-weighted images, questionably visible on the sagittal T2 and STIR images, could represent a small epidural abscess At C6-7, the disc is mildly narrowed. There is circumferential annular bulge and posterior osteophytes, which results in mild to moderate narrowing of the spinal canal to about 7 or 8 mm this level. There is slightly increased T2 signal within the disc. At C7-T1, no significant disc bulge or protrusion, disc space narrowing, spinal stenosis, or neural foraminal stenosis. There is equivocally heterogeneous cord signal between C3-4 and C6-7. However, this area is subject to considerable image degradation, subtly. Cord signal heterogeneity involving artifactual. Nonetheless, the possibility of myelomalacia should be considered. There is a transverse band of high signal on the COSMIC ASPIR images at the C2-3 level, which is not evident on any other sequences, probably artifactual but could indicate some focal myelomalacia Impression: Somewhat limited exam due to patient motion artifact Likely significant spinal stenosis extending from C3-4 to C6-7. Level by level details as above. Equivocal heterogeneity to the intrinsic cord signal at these levels. Suspect artifactual, but significant myelomalacia possibility. Unusual vertebral body marrow signal involving C5 and C6. Low T2 signal suggests edema, but STIR signal is only minimally increased. It could possibly be that the T1 signal abnormality reflects significant osteosclerosis. Cervical spine radiographs or CT may be useful to clarify. Disc degeneration at C5-6. High intradiscal T2 signal probably is edema secondary to degenerative change, but the possibility of discitis should also be considered. High T2 signal in the prevertebral soft tissues from C3 to C6, raises concern for prevertebral cellulitis Equivocal area of abnormal high T2 signal anterior to the spinal canal to the right of midline at C7 and possibly extending more cephalad could represent a small epidural abscess. Transverse band of high T2 signal on the COSMIC ASPIR images; suspect artifactual but myelomalacia at this level not excludable Other degenerative changes as detailed above, including multilevel neural foraminal narrowing Recommend repeat imaging with contrast for evaluation of the possible infectious abnormalities described above Findings discussed by phone with Dr. Lam at the time of interpretation
--- NOTE | 2018-02-19 17:18 | Cardiac Electrophysiology PN ---
Assessment/Plan Assessment/Plan 1. Hypertension. Blood pressure is currently stable on Norvasc 2.5 mg daily and p.r.n. clonidine. 2. ESRD. Her echocardiogram showed ejection fraction of 55%. The patient does not have any chest pain. No prior congestive heart failure. 3. Diabetic foot ulcer osteomyelitis. The patient is on IV antibiotic. 4. Severe peripheral vascular disease. Prior to vascular surgery and angiogram, the patient would need nuclear stress test for her risk stratification. Had Excisional debridement of right foot DM ulcer and Incision and drainage of left foot abscess deep to fascia 5. Sepsis with white count of 30,000 with gram-positive bacteremia with 3 positive blood cultures Order YONATHAN 6. Elevated liver function test. 7. Insulin-dependent diabetes with diabetic neuropathy. 8. Hyperlipidemia. Subjective Subjective No events. Now has 3 positive blood cultures. Had Excisional debridement of right foot DM ulcer to level of subq and Incision and drainage of left foot abscess deep to fascia Objective Last 24 Hour Vital Signs Date Time Temp Pulse Resp B/P (MAP) Pulse Ox O2 Delivery O2 Flow Rate FiO2 02/19/18 15:46 96.8 50 18 91/48 100 96.8 02/19/18 12:00 97.1 63 16 121/63 98 97.1 02/19/18 09:22 64 118/61 02/19/18 09:00 97.5 02/19/18 08:55 97.5 64 15 118/61 100 Nasal Cannula 3.0 97.5 02/19/18 08:40 64 13 121/62 100 Simple Mask 6.0 02/19/18 08:30 97.2 02/19/18 08:30 64 13 120/61 100 Simple Mask 6.0 02/19/18 08:21 208.0 65 22 99 02/19/18 08:19 64 18 115/59 100 Simple Mask 6.0 02/19/18 08:14 63 19 112/50 100 Simple Mask 6.0 02/19/18 08:09 97.1 63 19 99/55 100 Simple Mask 6.0 97.1 02/19/18 04:00 98.5 87 18 146/64 96 98.5 02/19/18 04:00 Room Air 02/19/18 00:00 Room Air 02/19/18 00:00 97.9 86 19 153/71 94 97.9 02/18/18 21:50 Room Air 02/18/18 21:48 74 16 164/82 Room Air 02/18/18 20:00 96.3 66 19 129/64 97 96.3 02/18/18 18:30 96.3 62 12 148/68 Room Air 96.3 02/18/18 18:30 Room Air Intake and Output 02/18/18 02/19/18 19:00 07:00 Output Total 300 ml 1518 ml Balance -300 ml -1518 ml Output Urine Total 300 ml 400 ml Hemodialysis UF 1118 ml Laboratory Tests Test 02/19/18 06:00 02/19/18 15:13 White Blood Count 26.8 K/UL (4.8-10.8) *H Red Blood Count 3.43 M/UL (4.20-5.40) L Hemoglobin 9.2 G/DL (12.0-16.0) L Hematocrit 26.9 % (37.0-47.0) L Mean Corpuscular Volume 78 FL (80-99) L Mean Corpuscular Hemoglobin 26.8 PG (27.0-31.0) L Mean Corpuscular Hemoglobin Concent 34.2 G/DL (32.0-36.0) Red Cell Distribution Width 14.8 % (11.6-14.8) Platelet Count 260 K/UL (150-450) Mean Platelet Volume 9.9 FL (6.5-10.1) Neutrophils (%) (Auto) % (45.0-75.0) Lymphocytes (%) (Auto) % (20.0-45.0) Monocytes (%) (Auto) % (1.0-10.0) Eosinophils (%) (Auto) % (0.0-3.0) Basophils (%) (Auto) % (0.0-2.0) Differential Total Cells Counted 100 Neutrophils % (Manual) 87 % (45-75) H Lymphocytes % (Manual) 8 % (20-45) L Monocytes % (Manual) 3 % (1-10) Eosinophils % (Manual) 1 % (0-3) Basophils % (Manual) 0 % (0-2) Band Neutrophils 1 % (0-8) Platelet Estimate Adequate Platelet Morphology Normal Hypochromasia 1+ Sodium Level 133 MMOL/L (136-145) L Potassium Level 3.6 MMOL/L (3.5-5.1) Chloride Level 95 MMOL/L (98-107) L Carbon Dioxide Level 28 MMOL/L (21-32) Anion Gap 10 mmol/L (5-15) Blood Urea Nitrogen 79 mg/dL (7-18) H Creatinine 4.2 MG/DL (0.55-1.30) H Estimat Glomerular Filtration Rate 12.8 mL/min (>60) Glucose Level 173 MG/DL (74-106) H Uric Acid 10.8 MG/DL (2.6-7.2) H Calcium Level 8.5 MG/DL (8.5-10.1) Phosphorus Level 5.8 MG/DL (2.5-4.9) H Magnesium Level 2.4 MG/DL (1.8-2.4) Total Bilirubin 1.0 MG/DL (0.2-1.0) Direct Bilirubin 0.5 MG/DL (0.0-0.3) H Aspartate Amino Transf (AST/SGOT) 37 U/L (15-37) Alanine Aminotransferase (ALT/SGPT) 67 U/L (12-78) Alkaline Phosphatase 228 U/L (46-116) H C-Reactive Protein, Quantitative 15.7 mg/dL (0.00-0.90) H Total Protein 7.7 G/DL (6.4-8.2) Albumin 1.6 G/DL (3.4-5.0) L Arterial Blood pH 7.351 (7.350-7.450) Arterial Blood Partial Pressure CO2 47.2 mmHg (35.0-45.0) H Arterial Blood Partial Pressure O2 102.2 mmHg (75.0-100.0) H Arterial Blood HCO3 25.5 mmol/L (22.0-26.0) Arterial Blood Oxygen Saturation 96.0 % (92.0-98.0) Arterial Blood Base Excess -0.1 Vijay Test Positive Microbiology Date/Time Source Procedure Growth Status 02/18/18 09:10 Blood Blood Culture - Preliminary Resulted 02/18/18 09:05 Blood Blood Culture - Preliminary Resulted Objective HEAD AND NECK: Showed no JVD. LUNGS: Clear. CARDIOVASCULAR: Regular S1 and S2 with no gallop or murmur. ABDOMEN: Obese. EXTREMITIES: Bilateral foot ulcers, s/p surgery. Gustabo Concepcion MD Feb 19, 2018 17:18
[2018-02-19] MEDS ORDERED: Heparin 2000 units/Ns 1000ml IV SCH (18:15)
[2018-02-19] MEDS ORDERED: Morphine Sulfate 2mg/ml Inj IVP PRN ×2 (18:30→21:00)
[2018-02-19] MEDS ORDERED: NovoLOG Insulin Flexpen SUBQ SCH ×2 (18:30)
[2018-02-19] MEDS ORDERED: Acetaminophen 650 MG SUPP RECTAL PRN ×2 (18:30→21:00)
[2018-02-19] MEDS ORDERED: traMADol 50mg tab ORAL PRN ×4 (18:30→21:00)
--- NOTE | 2018-02-19 18:34 | General Progress Note ---
Assessment/Plan Problem List: (1) R>L arm weakness (2) Sepsis ICD Codes: A41.9 - Sepsis, unspecified organism SNOMED: 90700670 (3) Gram-positive bacteremia ICD Codes: R78.81 - Bacteremia SNOMED: 862936263360 (4) Osteomyelitis of first proximal phalanx and head of the first metatarsal (5) L>R foot diabetic ulcers (6) Cellulitis of left lower extremity ICD Codes: L03.116 - Cellulitis of left lower limb SNOMED: 827334646 (7) CARLOS vs CARLOS on CKD (8) Elevated LFTs ICD Codes: R79.89 - Other specified abnormal findings of blood chemistry SNOMED: 993804019, 340529488 (9) Urinary retention Assessment & Plan: Possibly 2/2 neurogenic bladder given diabetes ICD Codes: R33.9 - Retention of urine, unspecified SNOMED: 303577541 (10) Severe ischemia at rest of LLE (11) Severe peripheral arterial disease ICD Codes: I73.9 - Peripheral vascular disease, unspecified SNOMED: 942297211 (12) Insulin dependent diabetes mellitus ICD Codes: E11.9 - Type 2 diabetes mellitus without complications; Z79.4 - senior care (current) use of insulin SNOMED: 64128654 (13) Diabetic neuropathy ICD Codes: E11.40 - Type 2 diabetes mellitus with diabetic neuropathy, unspecified SNOMED: 00508047, 536311706, 206849100 (14) HTN (hypertension) ICD Codes: I10 - Essential (primary) hypertension SNOMED: 15242780 (15) HLD (hyperlipidemia) ICD Codes: E78.5 - Hyperlipidemia, unspecified SNOMED: 89309343 (16) Hyponatremia ICD Codes: E87.1 - Hypo-osmolality and hyponatremia SNOMED: 07034076 (17) Hypokalemia ICD Codes: E87.6 - Hypokalemia SNOMED: 63726432 Status: progressing, not improved Assessment/Plan Podiatry and ID consulted D/c vanco given rising SCr s/p linezolid Cont vanco per ID as pt now will be on dialysis D/c zosyn Cont meropenem per ID for broader coverage F/u wound cultures--shows Staph aureus and E. Coli F/u blood cultures on 02/13--02/27 bottles w/ MRSA F/u repeat blood cultures on 02/15--4/4 bottles w/ MRSA F/u repeat blood cultures on 02/18--4/4 bottles w/ GPC Repeat blood cultures today to monitor for clearance YONATHAN ordered given persistent bacteremia Neurology consulted given UE weakness Check MRI brain and C-spine Trend CBC Check MRI L foot --> shows evidence of osteomyelitis, abscess, cellulitis s/p bedside L foot wound washout/debridement on 02/14/18 s/p excisional debridement of right foot DM ulcer to level of subq, incision and drainage of left foot abscess deep to fascia, and excisional debridement of left foot DM ulcer to level of bone on 02/19/18 Wound care per podiatry Check arterial duplex BLE --> shows evidence of severe ischemia at rest of LLE Vascular surgery consulted --> recommends angiogram but cannot be done at [facility]. Pt placed on [facility] transfer list pending authorization from insurance. Cardiology consulted for preop clearance Levemir 34U daily Novolog 6U TID AC ERYN Check A1C --> 9.0 Hold statin given elevated LFTs F/u hepatitis panel --> neg F/u U/S abd/renal --> mild hepatomegaly Trend LFTs Renal consulted given elevated SCr, unclear baseline Cont fried per renal s/p temporary dialysis line placement on 02/18/18 Started on HD on 02/18/18 per renal Trend BMP Pain control, bowel regimen Supportive care Dispo: will need transfer to another facility for angiogram per vascular surgery. CM notified DVT ppx: HSQ, SCDs D/w pt, RN, SW/CM, ID, podiatry, renal, vascular surgery, cardiology regarding mgmt and dispo. D/w renal re plan to start HD. D/w ID re abx. D/w neuro re plan for MRI brain, C spine Subjective Date patient seen: Feb 19, 2018 Time patient seen: 15:00 ROS Limited/Unobtainable: Yes Constitutional: Reports: no symptoms, malaise, weakness HEENT: Reports: no symptoms Cardiovascular: Reports: no symptoms Gastrointestinal/Abdominal: Reports: no symptoms Genitourinary: Reports: no symptoms Neurologic/Psychiatric: Reports: numbness, weakness Endocrine: Reports: no symptoms Hematologic/Lymphatic: Reports: no symptoms Allergies: Coded Allergies: No Known Allergies (Unverified , 12/10/17) All Systems: reviewed and negative except above Subjective No acute o/n events WBC down to 26K Blood cultures show 4/4 bottles with MRSA. Repeat blood culture 02/15 still w/ 4/ 4 bottles w/ MRSA. Repeat blood cultures 02/18 with 4/4 bottles GPC Wound culture with Staph aureus and E. Coli s/p HD yesterday s/p excisional debridement of right foot DM ulcer to level of subq, incision and drainage of left foot abscess deep to fascia, and excisional debridement of left foot DM ulcer to level of bone this AM Pt drowsy at time of my exam, just got some IV dilaudid. Arousable to voice. Unable to move RUE. Some movement of LUE per RN. Not currently following my commands D/w sister re plan of care Objective Last 24 Hour Vital Signs Date Time Temp Pulse Resp B/P (MAP) Pulse Ox O2 Delivery O2 Flow Rate FiO2 02/19/18 15:46 96.8 50 18 91/48 100 96.8 02/19/18 12:00 97.1 63 16 121/63 98 97.1 02/19/18 09:22 64 118/61 02/19/18 09:00 97.5 02/19/18 08:55 97.5 64 15 118/61 100 Nasal Cannula 3.0 97.5 02/19/18 08:40 64 13 121/62 100 Simple Mask 6.0 02/19/18 08:30 97.2 02/19/18 08:30 64 13 120/61 100 Simple Mask 6.0 02/19/18 08:21 208.0 65 22 99 02/19/18 08:19 64 18 115/59 100 Simple Mask 6.0 02/19/18 08:14 63 19 112/50 100 Simple Mask 6.0 02/19/18 08:09 97.1 63 19 99/55 100 Simple Mask 6.0 97.1 02/19/18 04:00 98.5 87 18 146/64 96 98.5 02/19/18 04:00 Room Air 02/19/18 00:00 Room Air 02/19/18 00:00 97.9 86 19 153/71 94 97.9 02/18/18 21:50 Room Air 02/18/18 21:48 74 16 164/82 Room Air 02/18/18 20:00 96.3 66 19 129/64 97 96.3 02/18/18 18:30 96.3 62 12 148/68 Room Air 96.3 02/18/18 18:30 Room Air Intake and Output 02/18/18 02/19/18 19:00 07:00 Output Total 300 ml 1518 ml Balance -300 ml -1518 ml Output Urine Total 300 ml 400 ml Hemodialysis UF 1118 ml Laboratory Tests 02/19/18 06:00: White Blood Count 26.8*H, Red Blood Count 3.43L, Hemoglobin 9.2L, Hematocrit 26.9L, Mean Corpuscular Volume 78L, Mean Corpuscular Hemoglobin 26.8L, Mean Corpuscular Hemoglobin Concent 34.2, Red Cell Distribution Width 14.8, Platelet Count 260, Mean Platelet Volume 9.9, Neutrophils (%) (Auto) , Lymphocytes (%) ( Auto) , Monocytes (%) (Auto) , Eosinophils (%) (Auto) , Basophils (%) (Auto) , Differential Total Cells Counted 100, Neutrophils % (Manual) 87H, Lymphocytes % (Manual) 8L, Monocytes % (Manual) 3, Eosinophils % (Manual) 1, Basophils % ( Manual) 0, Band Neutrophils 1, Platelet Estimate Adequate, Platelet Morphology Normal, Hypochromasia 1+, Sodium Level 133L, Potassium Level 3.6, Chloride Level 95L, Carbon Dioxide Level 28, Anion Gap 10, Blood Urea Nitrogen 79H, Creatinine 4.2H, Estimat Glomerular Filtration Rate 12.8, Glucose Level 173H, Uric Acid 10.8H, Calcium Level 8.5, Phosphorus Level 5.8H, Magnesium Level 2.4, Total Bilirubin 1.0, Direct Bilirubin 0.5H, Aspartate Amino Transf (AST/SGOT) 37 , Alanine Aminotransferase (ALT/SGPT) 67, Alkaline Phosphatase 228H, C-Reactive Protein, Quantitative 15.7H, Total Protein 7.7, Albumin 1.6L 02/19/18 15:13: Arterial Blood pH 7.351, Arterial Blood Partial Pressure CO2 47.2H, Arterial Blood Partial Pressure O2 102.2H, Arterial Blood HCO3 25.5, Arterial Blood Oxygen Saturation 96.0, Arterial Blood Base Excess -0.1, Vijay Test Positive Height (Feet): 5 Height (Inches): 9.00 Weight (Pounds): 190 Objective General: alert, cooperative, no distress, appears stated age, somonlent but arousable Head: normocephalic, without obvious abnormality, atraumatic Eyes: conjunctivae/corneas clear. PERRL, EOM's intact Throat: lips, mucosa, and tongue normal. MMM Neck: supple, symmetrical, trachea midline, and no JVD Lungs: clear to auscultation bilaterally Heart: regular rate and rhythm, S1, S2 normal, no murmur, click, rub or gallop Abdomen: soft, non-tender, non-distended, bowel sounds normal Extremities: extremities normal, atraumatic, no cyanosis or edema Pulses: non-palpable pedal pulses b/l Skin: Dressing w/ some serosanguinous drainage Neuro: not following commands, R arm noted to be weak Angel Corbin M.D. Feb 19, 2018 18:34
[2018-02-19] MEDS ORDERED: Sodium Chloride 500ML 550 ML IV ONE (20:15)
[2018-02-19 20:33] LABS: ANION GAP 9 mmol/L (5-15); BLOOD UREA NITROGEN 86 mg/dL (7-18); CARBON DIOXIDE 27 MMOL/L (21-32); CHLORIDE 98 MMOL/L (98-107); POTASSIUM 4.2 MMOL/L (3.5-5.1); SODIUM 134 MMOL/L (136-145)
[2018-02-19] MEDS ORDERED: Heparin 5000 units/ml inj SUBQ SCH (21:00)
[2018-02-19] MEDS ORDERED: Docusate 100mg cap ORAL SCH (21:00)
[2018-02-19] MEDS ORDERED: Meropenem 500 MG in NS 55 ML IVPB SCH (23:00)
--- NOTE | 2018-02-19 23:12 | Infectious Diseases Prog Note ---
Assessment/Plan Assessment/Plan ASSESSMENT AND PLAN: 1. mrsa bacteremia, mrsa/e.coli/pseudomonas left foot wound/ulcer infection/ abscess/cellulitis/osteomyelitis/gangrene, sepsis, leukocytosis, imaging noted acute arm weakness, MRI cervical spine noted, possible epidural abscess with likely bacterial spinal seeding from MRSA bacteremia, ? endocarditis s/p debridement and I/D of left foot abscess - leukocytosis persists, blood cultures still positive - continue meropenem and vancomycin - check surveillance blood cultures, watch labs - temporary hd line, get permanent hd line once blood cultures sterile - patient will need possible angiogram, further debridement, possible revascularization, possible amputation - d/w Dr. Ortiz - neurology f/u, YONATHAN, spine surgery f/u 2. Acute kidney injury, elevated creatinine. The patient had a Kenney placed. We will watch creatinine closely. 3. Elevated liver function tests and alkaline phosphatase. We will check ultrasound and hepatitis panel. 4. Diabetes. 5. Hypertension. 6. Questionable hyperlipidemia. 7. Anemia. 8. Questionable chronic kidney disease. 9. Acute renal failure. 10. Neuropathy. 11. Back pain. 12. Pain management. 13. Blood sugar and blood pressure treatment for diabetes and hypertension per primary. 14. Diabetes and hypertension. 15. No allergies. 16. Social history negative. 17. MAR was noted. 18. Case discussed with RN. 19. Notes were reviewed. 20. Family history noncontributory. 21. Please continue other care per Dr. Ortiz and consultants and Podiatry followup. Subjective Constitutional: Reports: other - + new onset of bilateral arm weakness ; Denies : fever HEENT: Reports: congestion Respiratory: Reports: shortness of breath Gastrointestinal/Abdominal: Denies: nausea, vomiting, diarrhea Neurologic: Reports: weakness - bilateral arms, lethargic Allergies: Coded Allergies: No Known Allergies (Unverified , 12/10/17) Objective Vital Signs Last 24 Hour Vital Signs Date Time Temp Pulse Resp B/P (MAP) Pulse Ox O2 Delivery O2 Flow Rate FiO2 02/19/18 20:00 97.8 57 14 117/61 100 97.8 02/19/18 18:24 51 16 93/42 100 02/19/18 15:46 96.8 50 18 91/48 100 96.8 02/19/18 12:00 97.1 63 16 121/63 98 97.1 02/19/18 09:22 64 118/61 02/19/18 09:00 97.5 02/19/18 08:55 97.5 64 15 118/61 100 Nasal Cannula 3.0 97.5 02/19/18 08:40 64 13 121/62 100 Simple Mask 6.0 02/19/18 08:30 97.2 02/19/18 08:30 64 13 120/61 100 Simple Mask 6.0 02/19/18 08:21 208.0 65 22 99 02/19/18 08:19 64 18 115/59 100 Simple Mask 6.0 02/19/18 08:14 63 19 112/50 100 Simple Mask 6.0 02/19/18 08:09 97.1 63 19 99/55 100 Simple Mask 6.0 97.1 02/19/18 04:00 98.5 87 18 146/64 96 98.5 02/19/18 04:00 Room Air 02/19/18 00:00 Room Air 02/19/18 00:00 97.9 86 19 153/71 94 97.9 Height (Feet): 5 Height (Inches): 9.00 Weight (Pounds): 190 HEENT: normocephalic, atraumatic, anicteric Respiratory/Chest: lungs clear, normal breath sounds, no respiratory distress Cardiovascular: normal rate, regular rhythm Abdomen: normal bowel sounds, soft, non tender, no organomegaly Extremities: other - left foot coverd Neurologic/Psychiatric: motor weakness - bilateral arms, new onset Objective MRI left foot: Impression: Somewhat limited exam, due to motion artifact Abnormal STIR and T1 signal within the first proximal phalanx and head of the first metatarsal. This is worrisome for osteomyelitis Evidence of soft tissue cellulitis of the first digit with an inferomedial soft tissue ulcer adjacent to the first metatarsophalangeal joint. More generalized edema of the forefoot also is demonstrated. More localized fluid collection dorsal to the first metatarsophalangeal joint could represent a small soft tissue abscess Small signal voids in the soft tissues adjacent to the first metatarsal could represent gas bubbles and therefore raise concern for infection with gas-forming organism Findings discussed by phone with Dr. Ortiz at the time of interpretation Microbiology Date/Time Source Procedure Growth Status 02/18/18 09:10 Blood Blood Culture - Preliminary Resulted 02/18/18 09:05 Blood Blood Culture - Preliminary Resulted Laboratory Tests Test 02/19/18 06:00 02/19/18 15:13 02/19/18 19:35 02/19/18 19:55 White Blood Count 26.8 K/UL (4.8-10.8) *H Red Blood Count 3.43 M/UL (4.20-5.40) L Hemoglobin 9.2 G/DL (12.0-16.0) L Hematocrit 26.9 % (37.0-47.0) L Mean Corpuscular Volume 78 FL (80-99) L Mean Corpuscular Hemoglobin 26.8 PG (27.0-31.0) L Mean Corpuscular Hemoglobin Concent 34.2 G/DL (32.0-36.0) Red Cell Distribution Width 14.8 % (11.6-14.8) Platelet Count 260 K/UL (150-450) Mean Platelet Volume 9.9 FL (6.5-10.1) Neutrophils (%) (Auto) % (45.0-75.0) Lymphocytes (%) (Auto) % (20.0-45.0) Monocytes (%) (Auto) % (1.0-10.0) Eosinophils (%) (Auto) % (0.0-3.0) Basophils (%) (Auto) % (0.0-2.0) Differential Total Cells Counted 100 Neutrophils % (Manual) 87 % (45-75) H Lymphocytes % (Manual) 8 % (20-45) L Monocytes % (Manual) 3 % (1-10) Eosinophils % (Manual) 1 % (0-3) Basophils % (Manual) 0 % (0-2) Band Neutrophils 1 % (0-8) Platelet Estimate Adequate Platelet Morphology Normal Hypochromasia 1+ Sodium Level 133 MMOL/L (136-145) L 134 MMOL/L (136-145) L Potassium Level 3.6 MMOL/L (3.5-5.1) 4.2 MMOL/L (3.5-5.1) Chloride Level 95 MMOL/L (98-107) L 98 MMOL/L (98-107) Carbon Dioxide Level 28 MMOL/L (21-32) 27 MMOL/L (21-32) Anion Gap 10 mmol/L (5-15) 9 mmol/L (5-15) Blood Urea Nitrogen 79 mg/dL (7-18) H 86 mg/dL (7-18) H Creatinine 4.2 MG/DL (0.55-1.30) H 5.0 MG/DL (0.55-1.30) H Estimat Glomerular Filtration Rate 12.8 mL/min (>60) 10.5 mL/min (>60) Glucose Level 173 MG/DL (74-106) H 198 MG/DL (74-106) H Uric Acid 10.8 MG/DL (2.6-7.2) H Calcium Level 8.5 MG/DL (8.5-10.1) 8.0 MG/DL (8.5-10.1) L Phosphorus Level 5.8 MG/DL (2.5-4.9) H Magnesium Level 2.4 MG/DL (1.8-2.4) Total Bilirubin 1.0 MG/DL (0.2-1.0) Direct Bilirubin 0.5 MG/DL (0.0-0.3) H Aspartate Amino Transf (AST/SGOT) 37 U/L (15-37) Alanine Aminotransferase (ALT/SGPT) 67 U/L (12-78) Alkaline Phosphatase 228 U/L (46-116) H C-Reactive Protein, Quantitative 15.7 mg/dL (0.00-0.90) H Total Protein 7.7 G/DL (6.4-8.2) Albumin 1.6 G/DL (3.4-5.0) L Arterial Blood pH 7.351 (7.350-7.450) 7.397 (7.350-7.450) Arterial Blood Partial Pressure CO2 47.2 mmHg (35.0-45.0) H 42.0 mmHg (35.0-45.0) Arterial Blood Partial Pressure O2 102.2 mmHg (75.0-100.0) H 117.9 mmHg (75.0-100.0) H Arterial Blood HCO3 25.5 mmol/L (22.0-26.0) 25.3 mmol/L (22.0-26.0) Arterial Blood Oxygen Saturation 96.0 % (92.0-98.0) 96.9 % (92.0-98.0) Arterial Blood Base Excess -0.1 0.4 Vijay Test Positive Positive Current Medications Medications (Trade) Dose Ordered Sig/Marlena Route PRN Reason Start Time Stop Time Status Last Admin Dose Admin Acetaminophen (Tylenol) 650 mg Q4H PRN ORAL Mild Pain (Pain Scale 1-3) 02/19/18 21:00 03/16/18 20:59 Acetaminophen (Tylenol) 650 mg Q4H PRN RECTAL fever 02/19/18 21:00 03/16/18 20:59 Allopurinol (Zyloprim) 100 mg DAILY ORAL 02/20/18 09:00 03/21/18 11:59 Amlodipine Besylate (Norvasc) 2.5 mg DAILY ORAL 02/20/18 09:00 03/16/18 08:59 Bisacodyl (Dulcolax) 10 mg HSPRN PRN RECTAL Constipation 02/19/18 21:00 03/21/18 20:59 Dextrose (Dextrose 50%) STAT PRN IV Hypoglycemia 02/19/18 21:00 03/21/18 20:59 Docusate Sodium (Colace) 100 mg TID ORAL 02/19/18 21:00 03/21/18 20:59 Gabapentin (Neurontin) 300 mg BEDTIME ORAL 02/19/18 21:00 03/17/18 20:59 Heparin Sodium (Porcine) (Heparin 5000 units/ml) 5,000 units EVERY 12 HOURS SUBQ 02/19/18 21:00 03/16/18 08:59 Insulin Aspart (NovoLOG) BEFORE MEALS AND HS SUBQ 02/19/18 21:00 03/16/18 18:29 Insulin Aspart (NovoLOG) 6 units NOVOTIAC SUBQ 02/20/18 06:30 03/21/18 18:29 Insulin Detemir (Levemir) 34 units Q24H SUBQ 02/20/18 18:30 03/16/18 18:29 Lansoprazole (Prevacid) 30 mg DAILY ORAL 02/20/18 09:00 03/17/18 08:59 Meropenem 500 mg/ Dextrose 55 ml @ 110 mls/hr Q24H IVPB 02/20/18 09:30 02/25/18 09:29 Morphine Sulfate (Morphine Sulfate) 4 mg Q6H PRN IVP Severe Pain(see instructions) 02/19/18 21:00 02/26/18 20:59 Ondansetron HCl (Zofran) 4 mg Q6H PRN IVP Nausea & Vomiting 02/19/18 21:00 03/21/18 20:59 Sevelamer Carbonate (Renvela) 800 mg THREE TIMES A DAY ORAL 02/20/18 09:00 03/21/18 18:59 Tramadol HCl (Ultram) 50 mg Q4H PRN ORAL moderate pain 02/19/18 21:00 02/21/18 20:59 Tramadol HCl (Ultram) 100 mg Q6H PRN ORAL severe pain 02/19/18 21:00 02/26/18 20:59 Vancomycin HCl (Vanco rx to dose) 1 ea DAILYPRN PRN MISC Per rx protocol 02/19/18 21:00 03/21/18 20:59 CHAPITO DENISE 27, 2018 23:12
[2018-02-20] VITALS (16 sets, daily range): BP systolic 105–130; BP diastolic 39–68
--- NOTE | 2018-02-20 02:00 | Consultation ---
DATE OF CONSULTATION: 02/19/2018 NEUROLOGICAL CONSULTATION CONSULTING PHYSICIAN: Ethan Lam M.D. REQUESTING PHYSICIAN: Karma Chen M.D. HISTORY OF PRESENT ILLNESS: This is a 67-year-old female, seen in neurological consultation to evaluate noted this morning evidence of being unable to move her upper extremity. The patient informed me that on the day of admission, she woke up in the morning and she was being unable to move her arms or legs. She was taken to emergency room where she was noted to have infected left foot. She was complaining of severe pain. In addition, she developed pain in upper part of the neck near the head. It appears that she has previous intermittent headaches and she is suffering from chronic pain, which worsened on the day of admission, not responding to treatment with usual analgesic tramadol. On admission, she was also noted to have drainage from the left foot. She was also presenting with chronic back pain, fibromyalgia, degenerative joint disease, and occasional headache. Pain on admission was severe, rated 9/10, constant. There was a burning pain in her back with a pressure sensation in her head. Her vital signs were stable. She was afebrile. Her initial lab work included a CBC study with WBC of 14.1, hemoglobin 8.5, hematocrit 26.0. Mild coagulopathy. PTT of 26, PT 12.0 and INR 1.1. Urinalysis with 20 to 30 wbcs, 3+ protein. Chemistry panel with BUN of 79, creatinine 3.5 and blood sugar 154. Highly elevated AST 657, ALT 387, but normal troponin. Elevated BNP 2769 and albumin down to 1.9. Normal folate, B12, and TSH. Elevated triglycerides 397. The patient was placed on IV fluids, antibiotics. Liver function improved. BUN remained at 93 and creatinine 5.3. Imaging studies included foot MRI revealed abnormalities worrisome for osteomyelitis with evidence of soft tissue cellulitis , fluid collection, dorsal to metatarsal phalangeal joint represents small soft tissue abscess. Chest x-ray, no acute process, evidence of cardiomegaly noted. The patient had a podiatry assessment, who diagnosed her with cellulitis, abscess of the left foot, diabetic foot ulcers with diabetic polyneuropathy. This morning, the patient underwent an excisional debridement of right foot diabetic ulcer to the level of subcutaneous deep, incision and drainage of left foot abscess deep to the tissue, and excisional debridement of left foot diabetic ulcer to the level of bone. This was done under general anesthesia, the patient tolerated well, and was taken to the floor fully awake. At this time, weakness of the upper extremities was noted. The patient was unable to feed herself and a Neurology consult was requested. PAST MEDICAL HISTORY: The patient has extensive medical history. This includes insulin-dependent diabetes mellitus with diabetic polyneuropathy, history of hypertension, hyperlipidemia, chronic low back pain, fibromyalgia, renal failure, and history of urinary retention. MEDICATIONS: Treatment prior to admission included atorvastatin, amlodipine, clonidine, insulin, and tramadol. ALLERGIES: None reported. SOCIAL HISTORY: The patient lives in [place]. She is now visiting her sister. She denies alcohol or drug abuse. She is nonsmoker. FAMILY HISTORY: Noncontributory. REVIEW OF SYMPTOMS: The patient complains that she feels "terrible", this related to pain in her both shoulders, pain in her both upper extremities, weakness in her upper extremities, and pain at the base of skull, neck region, and occipital region without radiation. She denies chest pain or palpitation. Denies respiratory difficulties. No abdominal pain or discomfort. She has urinary retention. There is some discomfort in postoperative side. PHYSIAL EXAMINATION: MENTAL STATUS: The patient is alert and oriented x3. Speech is fluent. Language intact. Her attention is somewhat reduced. Prior to the examination, the patient was hand fed by nursing staff. She was following well and had a good appetite. She was able to follow all commands. CRANIAL NERVE II: Pupils both responding to light and accommodation. Extraocular movement intact. No nystagmus. CRANIAL NERVE V: Normal corneal responses. CRANIAL NERVE VII: Minor facial asymmetry. CRANIAL NERVE VIII: Decreased hearing, slightly bilaterally. CRANIAL NERVE IX THROUGH XII: Tongue is in midline. Symmetric palate elevation. MOTOR EXAMINATION: Revealed flaccid right upper and both lower extremities. No spontaneous movement. 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 There is no palpable tenderness in both shoulders or neck. Deep tendon reflexes absent in biceps, triceps, brachioradialis, knee and ankle jerks. Plantar response is mute. SENSORY EXAMINATION: Reduced pinprick sensation in the breast area down, absent response to pin stimulation right upper extremity, and reduced response to pin stimulation of left upper extremity. Normal pin sensation in the neck and head. Muscle tone flaccid both upper and lower extremity. ADDENDUM: There is postoperative changes in both feet, deformities both feet, sterile gauze placed on the postoperative site on the left foot. IMPRESSION: 1. Quadriplegia, new onset. Rule out a cervical, upper thoracic spine compression. Etiology undetermined. Doubt acute polyradiculoneuropathy. 2. Diabetes with diabetic sensory motor polyneuropathy. 3. Peripheral vascular disease. 4. Insulin-dependent diabetes mellitus. 5. Hypertension. 6. Renal insufficiency. 7. Left foot abscess/cellulitis, status post debridement. 8. Sepsis, gram-positive bacteremia. DISCUSSION: The patient indicated acute onset of upper and lower extremity palsy on the day of admission, she "just woke up with this". The patient has areflexia and quadriparesis, which may indicate a polyradiculoneuropathy, but in the setting of acute onset of neck pain and occipital headache, I have to consider cord compression in cervical area. In addition, sensory loss from low cervical region down is also contributing to location of the injury in the cervical area. The patient placed in a soft neck collar. Stat MRI of the brain, cervical and upper thoracic spine was requested. The patient will be reassessed upon completion of workup. Ethan Lam M.D. DR: MELISSA JOB#: [id number] CC:
[2018-02-20 04:42] LABS: HEMATOCRIT 19.9 % (37.0-47.0); MEAN CORPUSCULAR VOLUME 79 FL (80-99); PLATELET COUNT 180 K/UL (150-450); RED BLOOD COUNT 2.52 M/UL (4.20-5.40); RED CELL DISTRIBUTION WIDTH 15.8 % (11.6-14.8)
[2018-02-20 04:54] LABS: WHITE BLOOD COUNT 26.7 K/UL (4.8-10.8)
[2018-02-20 04:55] LABS: HEMOGLOBIN 6.7 G/DL (12.0-16.0)
[2018-02-20 04:56] LABS: ALANINE AMINOTRANSFERASE 42 U/L (12-78); ALBUMIN 1.4 G/DL (3.4-5.0); ALBUMIN/GLOBULIN RATIO 0.3 (1.0-2.7); ALKALINE PHOSPHATASE 152 U/L (46-116); ANION GAP 11 mmol/L (5-15); ASPARTATE AMINO TRANSFERASE 20 U/L (15-37); BILIRUBIN,TOTAL 0.5 MG/DL (0.2-1.0); BLOOD UREA NITROGEN 95 mg/dL (7-18); CALCIUM 8.4 MG/DL (8.5-10.1); CARBON DIOXIDE 26 MMOL/L (21-32); CHLORIDE 96 MMOL/L (98-107); CREATININE 5.2 MG/DL (0.55-1.30); POTASSIUM 4.3 MMOL/L (3.5-5.1); SODIUM 133 MMOL/L (136-145)
[2018-02-20 05:08] LABS: PHOSPHORUS 8.8 MG/DL (2.5-4.9)
[2018-02-20] MEDS: NovoLOG Insulin Flexpen SUBQ SCH ×6 (05:17→17:11)
[2018-02-20] MEDS: Docusate 100mg cap ORAL SCH ×2 (08:49→15:35)
[2018-02-20] MEDS: Heparin 5000 units/ml inj SUBQ SCH (08:53)
[2018-02-20] MEDS ORDERED: Allopurinol 100mg Tab ORAL SCH ×2 (09:00)
[2018-02-20 09:10] LABS: MEAN CORPUSCULAR VOLUME 80 FL (80-99); PLATELET COUNT 176 K/UL (150-450); RED BLOOD COUNT 2.26 M/UL (4.20-5.40); RED CELL DISTRIBUTION WIDTH 14.7 % (11.6-14.8)
[2018-02-20 09:13] LABS: WHITE BLOOD COUNT 25.8 K/UL (4.8-10.8)
[2018-02-20] MEDS ORDERED: D5W IVPB SCH ×6 (09:30)
[2018-02-20] MEDS ORDERED: MEROPENEM IVPB SCH ×6 (09:30)
[2018-02-20] MEDS ORDERED: Vancomycin 1gm in D5W 275ml IVPB ONE (10:00)
--- NOTE | 2018-02-20 10:58 | Nephrology Progress Note ---
Assessment/Plan Problem List: (1) CARLOS vs CARLOS on CKD (2) Ulcer of foot due to diabetes (3) HTN (hypertension) (4) Urinary retention (5) Diabetic neuropathy Assessment left foot wound infection/ulcer infection/cellulitis, ? abscess, ? osteo, leukocytosis, ? sepsis Debridement of necrotic bone and tissue bilateral feet 02/19 Renal failure likely acute on Chronic cr marge 5 Urinary retention: 500cc Urine after fried Anemia , etiology?? DM Elevated LFTs HypoAlbuminemia ? NS Plan transfuse dialysis 02/18 next 02/20 Keep BP and BS in check avoid Nephrotoxics monitor renal parameters per orders Subjective ROS Limited/Unobtainable: No Objective Objective Last 24 Hour Vital Signs Date Time Temp Pulse Resp B/P (MAP) Pulse Ox O2 Delivery O2 Flow Rate FiO2 02/20/18 08:50 69 117/43 02/20/18 08:00 97.5 66 15 117/43 100 Nasal Cannula 2.0 97.5 02/20/18 07:00 60 12 105/68 100 Nasal Cannula 2.0 02/20/18 06:00 65 15 109/39 100 Nasal Cannula 2.0 02/20/18 05:00 63 16 110/42 100 Nasal Cannula 2.0 02/20/18 04:00 96.9 63 16 130/49 100 Nasal Cannula 2.0 96.9 02/20/18 04:00 63 02/20/18 03:00 57 14 116/51 100 Nasal Cannula 2.0 02/20/18 02:00 59 12 122/51 100 Nasal Cannula 2.0 02/20/18 01:00 57 12 116/49 100 Nasal Cannula 2.0 02/20/18 00:00 96.6 58 13 121/49 100 Nasal Cannula 2.0 96.6 02/20/18 00:00 57 02/19/18 23:00 56 12 109/51 100 Nasal Cannula 2.0 02/19/18 22:00 56 12 105/47 100 Nasal Cannula 2.0 02/19/18 21:00 58 13 117/61 100 Nasal Cannula 2.0 02/19/18 20:00 Nasal Cannula 2.0 28 02/19/18 20:00 57 02/19/18 20:00 100 Nasal Cannula 2.0 28 02/19/18 20:00 97.8 57 14 117/61 100 97.8 02/19/18 18:24 51 16 93/42 100 02/19/18 15:46 96.8 50 18 91/48 100 96.8 02/19/18 12:00 97.1 63 16 121/63 98 97.1 Intake and Output 02/19/18 02/20/18 19:00 07:00 Intake Total 695 ml 300 ml Output Total 195 ml 70 ml Balance 500 ml 230 ml Intake Oral 240 ml 300 ml IV Total 455 ml Output Urine Total 175 ml 70 ml Peritoneal Dialysis UF 20 ml Laboratory Tests 02/19/18 15:13: Arterial Blood pH 7.351, Arterial Blood Partial Pressure CO2 47.2H, Arterial Blood Partial Pressure O2 102.2H, Arterial Blood HCO3 25.5, Arterial Blood Oxygen Saturation 96.0, Arterial Blood Base Excess -0.1, Vijay Test Positive 02/19/18 19:35: Arterial Blood pH 7.397, Arterial Blood Partial Pressure CO2 42.0, Arterial Blood Partial Pressure O2 117.9H, Arterial Blood HCO3 25.3, Arterial Blood Oxygen Saturation 96.9, Arterial Blood Base Excess 0.4, Vijay Test Positive 02/19/18 19:55: Sodium Level 134L, Potassium Level 4.2, Chloride Level 98, Carbon Dioxide Level 27, Anion Gap 9, Blood Urea Nitrogen 86H, Creatinine 5.0H, Estimat Glomerular Filtration Rate 10.5, Glucose Level 198H, Calcium Level 8.0L 02/20/18 04:00: Sodium Level 133L, Potassium Level 4.3, Chloride Level 96L, Carbon Dioxide Level 26, Anion Gap 11, Blood Urea Nitrogen 95H, Creatinine 5.2H, Estimat Glomerular Filtration Rate 10.1, Glucose Level 182H, Calcium Level 8.4L, White Blood Count 26.7*H, Red Blood Count 2.52L, Hemoglobin 6.7*L, Hematocrit 19.9L, Mean Corpuscular Volume 79L, Mean Corpuscular Hemoglobin 26.7L, Mean Corpuscular Hemoglobin Concent 33.8, Red Cell Distribution Width 15.8H, Platelet Count 180, Mean Platelet Volume 8.9, Neutrophils (%) (Auto) , Lymphocytes (%) (Auto) , Monocytes (%) (Auto) , Eosinophils (%) (Auto) , Basophils (%) (Auto) , Differential Total Cells Counted 100, Neutrophils % ( Manual) 91H, Lymphocytes % (Manual) 6L, Monocytes % (Manual) 3, Eosinophils % ( Manual) 0, Basophils % (Manual) 0, Band Neutrophils 0, Platelet Estimate Adequate, Platelet Morphology Normal, Hypochromasia 1+, Anisocytosis 1+, Uric Acid 11.7H, Phosphorus Level 8.8H, Magnesium Level 2.7H, Total Bilirubin 0.5, Aspartate Amino Transf (AST/SGOT) 20, Alanine Aminotransferase (ALT/SGPT) 42, Alkaline Phosphatase 152H, Pro-B-Type Natriuretic Peptide 1716H, Total Protein 6.7, Albumin 1.4L, Globulin 5.3, Albumin/Globulin Ratio 0.3L, Random Vancomycin Level 18.7 02/20/18 08:05: White Blood Count 25.8*H, Red Blood Count 2.26L, Hemoglobin 6.0*L, Hematocrit 18.0L, Mean Corpuscular Volume 80, Mean Corpuscular Hemoglobin 26.5L, Mean Corpuscular Hemoglobin Concent 33.3, Red Cell Distribution Width 14.7, Platelet Count 176, Mean Platelet Volume 7.6, Neutrophils (%) (Auto) , Lymphocytes (%) ( Auto) , Monocytes (%) (Auto) , Eosinophils (%) (Auto) , Basophils (%) (Auto) , Differential Total Cells Counted 100, Neutrophils % (Manual) 88H, Lymphocytes % (Manual) 4L, Monocytes % (Manual) 6, Eosinophils % (Manual) 1, Basophils % ( Manual) 0, Band Neutrophils 1, Platelet Estimate Adequate, Platelet Morphology Normal, Hypochromasia 1+, Anisocytosis 1+ Height (Feet): 5 Height (Inches): 9.00 Weight (Pounds): 190 General Appearance: no apparent distress Respiratory/Chest: decreased breath sounds Abdomen: distended Objective no other change TOLU GRIFFITH Feb 20, 2018 10:58
--- NOTE | 2018-02-20 11:53 | 48 Hour Post Anesthesia Eval ---
Post Anesthesia Evaluation Procedure: I&D of bilateral feet gangreen Date of Evaluation: Feb 20, 2018 Time of Evaluation: 08:45 Blood Pressure Systolic: 118 0: 72 Pulse Rate: 64 Respiratory Rate: 22 Temperature (Fahrenheit): 97.8 O2 Sat by Pulse Oximetry: 97 Airway: patent Nausea: No Vomiting: No Pain Intensity: 2 Hydration Status: adequate Cardiopulmonary Status: stable no pressors Mental Status/LOC: patient returned to baseline Follow-up Care/Observations: n/a Post-Anesthesia Complications: none Follow-up care needed: N/A MILADIS MANZANO M.D. Feb 20, 2018 11:53
--- NOTE | 2018-02-20 12:17 | Neurology Progress Note ---
Interim History Interim History ROS Limited/Unobtainable: No Complaints: cant move arms/legs, Events: no change, now in ICU Objective Physical Exam Last Vital Signs Date Time Temp Pulse Resp B/P (MAP) Pulse Ox O2 Delivery O2 Flow Rate FiO2 02/20/18 11:53 208.0 64 22 97 02/20/18 08:50 117/43 02/20/18 08:00 Nasal Cannula 2.0 02/19/18 20:00 28 Laboratory Tests Test 02/19/18 15:13 02/19/18 19:35 02/19/18 19:55 02/20/18 04:00 Arterial Blood pH 7.351 (7.350-7.450) 7.397 (7.350-7.450) Arterial Blood Partial Pressure CO2 47.2 mmHg (35.0-45.0) H 42.0 mmHg (35.0-45.0) Arterial Blood Partial Pressure O2 102.2 mmHg (75.0-100.0) H 117.9 mmHg (75.0-100.0) H Arterial Blood HCO3 25.5 mmol/L (22.0-26.0) 25.3 mmol/L (22.0-26.0) Arterial Blood Oxygen Saturation 96.0 % (92.0-98.0) 96.9 % (92.0-98.0) Arterial Blood Base Excess -0.1 0.4 Vijay Test Positive Positive Sodium Level 134 MMOL/L (136-145) L 133 MMOL/L (136-145) L Potassium Level 4.2 MMOL/L (3.5-5.1) 4.3 MMOL/L (3.5-5.1) Chloride Level 98 MMOL/L (98-107) 96 MMOL/L (98-107) L Carbon Dioxide Level 27 MMOL/L (21-32) 26 MMOL/L (21-32) Anion Gap 9 mmol/L (5-15) 11 mmol/L (5-15) Blood Urea Nitrogen 86 mg/dL (7-18) H 95 mg/dL (7-18) H Creatinine 5.0 MG/DL (0.55-1.30) H 5.2 MG/DL (0.55-1.30) H Estimat Glomerular Filtration Rate 10.5 mL/min (>60) 10.1 mL/min (>60) Glucose Level 198 MG/DL (74-106) H 182 MG/DL (74-106) H Calcium Level 8.0 MG/DL (8.5-10.1) L 8.4 MG/DL (8.5-10.1) L White Blood Count 26.7 K/UL (4.8-10.8) *H Red Blood Count 2.52 M/UL (4.20-5.40) L Hemoglobin 6.7 G/DL (12.0-16.0) *L Hematocrit 19.9 % (37.0-47.0) L Mean Corpuscular Volume 79 FL (80-99) L Mean Corpuscular Hemoglobin 26.7 PG (27.0-31.0) L Mean Corpuscular Hemoglobin Concent 33.8 G/DL (32.0-36.0) Red Cell Distribution Width 15.8 % (11.6-14.8) H Platelet Count 180 K/UL (150-450) Mean Platelet Volume 8.9 FL (6.5-10.1) Neutrophils (%) (Auto) % (45.0-75.0) Lymphocytes (%) (Auto) % (20.0-45.0) Monocytes (%) (Auto) % (1.0-10.0) Eosinophils (%) (Auto) % (0.0-3.0) Basophils (%) (Auto) % (0.0-2.0) Differential Total Cells Counted 100 Neutrophils % (Manual) 91 % (45-75) H Lymphocytes % (Manual) 6 % (20-45) L Monocytes % (Manual) 3 % (1-10) Eosinophils % (Manual) 0 % (0-3) Basophils % (Manual) 0 % (0-2) Band Neutrophils 0 % (0-8) Platelet Estimate Adequate Platelet Morphology Normal Hypochromasia 1+ Anisocytosis 1+ Uric Acid 11.7 MG/DL (2.6-7.2) H Phosphorus Level 8.8 MG/DL (2.5-4.9) H Magnesium Level 2.7 MG/DL (1.8-2.4) H Total Bilirubin 0.5 MG/DL (0.2-1.0) Aspartate Amino Transf (AST/SGOT) 20 U/L (15-37) Alanine Aminotransferase (ALT/SGPT) 42 U/L (12-78) Alkaline Phosphatase 152 U/L (46-116) H Pro-B-Type Natriuretic Peptide 1716 pg/mL (0-125) H Total Protein 6.7 G/DL (6.4-8.2) Albumin 1.4 G/DL (3.4-5.0) L Globulin 5.3 g/dL Albumin/Globulin Ratio 0.3 (1.0-2.7) L Random Vancomycin Level 18.7 ug/mL Test 02/20/18 08:05 White Blood Count 25.8 K/UL (4.8-10.8) *H Red Blood Count 2.26 M/UL (4.20-5.40) L Hemoglobin 6.0 G/DL (12.0-16.0) *L Hematocrit 18.0 % (37.0-47.0) L Mean Corpuscular Volume 80 FL (80-99) Mean Corpuscular Hemoglobin 26.5 PG (27.0-31.0) L Mean Corpuscular Hemoglobin Concent 33.3 G/DL (32.0-36.0) Red Cell Distribution Width 14.7 % (11.6-14.8) Platelet Count 176 K/UL (150-450) Mean Platelet Volume 7.6 FL (6.5-10.1) Neutrophils (%) (Auto) % (45.0-75.0) Lymphocytes (%) (Auto) % (20.0-45.0) Monocytes (%) (Auto) % (1.0-10.0) Eosinophils (%) (Auto) % (0.0-3.0) Basophils (%) (Auto) % (0.0-2.0) Differential Total Cells Counted 100 Neutrophils % (Manual) 88 % (45-75) H Lymphocytes % (Manual) 4 % (20-45) L Monocytes % (Manual) 6 % (1-10) Eosinophils % (Manual) 1 % (0-3) Basophils % (Manual) 0 % (0-2) Band Neutrophils 1 % (0-8) Platelet Estimate Adequate Platelet Morphology Normal Hypochromasia 1+ Anisocytosis 1+ General: well developed, well nourished, no acute distress, other - soft neck collor Head: normocophalic, atraumatic Neck: other - tender upper neck EENT: benign Neurologic Exam Mental Status: awake, alert, oriented x4, normal cognition, other - some time drowsy Speech: normal speech Language: normal language, no aphasia Cranial Nerve II: fundus normal, visual molina, no papilledema Cranial Nerves III, IV, : PERRLA, EOMI, pupils Cranial Nerve V: normal facial sensations, temporales function normal, masseters function normal, pterygoids function normal Cranial Nerve VII: no facial asymmetry, normal facial expressions Cranial Nerve VIII: normal hearing, no nystagmus Cranial Nerve IX: normal palate elevation, gag response Cranial Nerve X: no voice hoarseness Cranial Nerve XI: SCM symmetric, trapezii function normal Cranial Nerve XII: tongue midline, no tongue atrophy/fasciculations Motor System: normal muscle tone, no involuntary movement, no muscle wasting, other - 0/5 BLE and RUE, L wrist drop, 3/5 L arm Sensory: other - loss of pain upper chest and down/BLE , normal both UE Coordination: other Deep Tendon Reflexes: 0 bicep (L), 0 bicep (R), 0 tricep (L), 0 tricep (R), 0 brachioradialis (L), 0 brachioradialis (R), 0 knee (L), 0 knee (R), 0 ankle (L) , 0 ankle (R) Reflexes: mute plantar (L), mute plantar (R) Impression/Recommendations Problems: (1) C5-C7 severe spinal stenosiswith epidural abscess/discitis causing cord compression. (2) Diabetic neuropathy (3) Fibromyalgia (4) Sepsis (5) Gram-positive bacteremia (6) HTN (hypertension) (7) Insulin dependent diabetes mellitus Status: not improved, unchanged Recommendations ##[id number] spine surgery re cord decompression, tissue bx d/w radiology d/w Dr Ortiz-will try to transfer to [facility] gely start on Decadron 4mg tid-- was --- ok by MILAGRO LINARES Feb 20, 2018 12:17
[2018-02-20] MEDS ORDERED: Dexamethasone 4mg/ml vial IVP SCH (12:30)
--- NOTE | 2018-02-20 12:33 | Diagnostic Imaging Report ---
Indication: Reason For Exam: ABSCESS Technique: Pre and postcontrast sagittal and axial T1 fat saturated fast spin echo images. 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 This is predominantly on the right side that crosses the midline. Within the area of abnormal epidural enhancement, there is an area of nonenhancement which measures approximately 13 mm transverse, 5 mm AP, and 39 mm craniocaudad, predominantly to the right of but extending to and slightly to the left of the midline, probably representing an epidural abscess. This is bilobed, with one moiety posterior to C5-6 and the other posterior to C6-7 This results in significant compression of the cord, with narrowing of the spinal canal to a minimum of 5 mm in diameter, and in particular impingement on the right side of the cord. This is exacerbated also by short pedicles and degenerative changes described on the earlier study. Although there is evidence of fluid within the C5-6 and C6-7 discs on the previous noncontrast study, there is no significant disc enhancement. There is mild enhancement of the C5 and C6 vertebral bodies, and minimal enhancement of the superior aspect of the C7 vertebral body. There is thickening and enhancement of the prevertebral fat, extending from about the C2-3 disc caudad to the level of C7-T1 disc. Immediately anterior to the C5-6 disc, there is an area none enhancement which measures approximately 9 mm AP by 12 mm transverse by 18 mm craniocaudad, and is consistent with a prevertebral abscess. There is slight enhancement of the soft tissues adjacent to the C5 and C6 posterior elements on the right. No significant cord enhancement demonstrated. No other significant osseous enhancement or epidural enhancement Impression: Evidence of epidural abscess predominantly to the right of midline posterior to the C5-6 and C6-7 discs. There is thickening of the epidural fat with enhancement cephalad and to the left of this is well, consistent with infection/phlegmon Evidence of significant spinal stenosis with cord compression extending from the level of the C3-4 disc to the bottom of C7, also previously described, due to combination of disc degeneration and protrusion, short pedicles, and exacerbated by the suspected epidural abscess/inflammation. Note that on further review of the previous study, suspected myelomalacia from C3-4 to C7 seen on the prior exam is probably real Prevertebral enhancement extending from C2-3 to C7-T1, consistent with prevertebral cellulitis. Anterior to C5-6, there is evidence of a 9 x 12 x 18 mm prevertebral abscess No significant enhancement of the C5-6 and C6-7 discs, and only very mild enhancement of the adjacent vertebral bodies. Nonetheless, given the above findings, findings on the earlier exam remain suspicious for C5-6 discitis and adjacent osteomyelitis, and to a lesser extent suspicious for C6-7 discitis and possible adjacent osteomyelitis Enhancement of the soft tissues posterior and lateral to the C5-C7 posterior elements, likely representing cellulitis Findings discussed by phone with Dr. Lam at the time of interpretation
--- NOTE | 2018-02-20 14:57 | Infectious Diseases Prog Note ---
Assessment/Plan Assessment/Plan ASSESSMENT AND PLAN: 1. mrsa bacteremia, mrsa/e.coli/pseudomonas left foot wound/ulcer infection/ abscess/cellulitis/osteomyelitis/gangrene, sepsis, leukocytosis, imaging noted acute arm weakness, + leg weakness, MRI cervical spine noted, likely epidural abscess, chord compression, paralysis likely bacterial spinal seeding from MRSA bacteremia, ? endocarditis s/p debridement and I/D of left foot abscess - leukocytosis persists, blood cultures still positive - continue meropenem and vancomycin - check surveillance blood cultures, watch labs - temporary hd line, get permanent hd line once blood cultures sterile - patient will need possible angiogram, further debridement, possible revascularization, possible amputation - d/w Dr. Ortiz - neurology f/u, YONATHAN, spine surgery f/u - to transfer to [facility] neuro icu for management of epidural abscess 2. Acute kidney injury, elevated creatinine. The patient had a Fried placed. We will watch creatinine closely. 3. Elevated liver function tests and alkaline phosphatase. We will check ultrasound and hepatitis panel. 4. Diabetes. 5. Hypertension. 6. Questionable hyperlipidemia. 7. Anemia. 8. Questionable chronic kidney disease. 9. Acute renal failure. 10. Neuropathy. 11. Back pain. 12. Pain management. 13. Blood sugar and blood pressure treatment for diabetes and hypertension per primary. 14. Diabetes and hypertension. 15. No allergies. 16. Social history negative. 17. MAR was noted. 18. Case discussed with RN. 19. Notes were reviewed. 20. Family history noncontributory. 21. Please continue other care per Dr. Ortiz Subjective Constitutional: Reports: fatigue; Denies: fever HEENT: Denies: congestion Respiratory: Denies: shortness of breath Cardiovascular: Denies: chest pain Gastrointestinal/Abdominal: Denies: nausea, vomiting, diarrhea Genitourinary: Reports: other - + fried - urine clear Neurologic: Reports: weakness Skin: Denies: rash Hematologic: Denies: bleeding Musculoskeletal: Denies: pain Allergies: Coded Allergies: No Known Allergies (Unverified , 12/10/17) Objective Vital Signs Last 24 Hour Vital Signs Date Time Temp Pulse Resp B/P (MAP) Pulse Ox O2 Delivery O2 Flow Rate FiO2 02/20/18 11:53 208.0 64 22 97 02/20/18 08:50 69 117/43 3/28/18 08:00 97.5 66 15 117/43 100 Nasal Cannula 2.0 97.5 02/20/18 07:00 60 12 105/68 100 Nasal Cannula 2.0 02/20/18 06:00 65 15 109/39 100 Nasal Cannula 2.0 02/20/18 05:00 63 16 110/42 100 Nasal Cannula 2.0 02/20/18 04:00 96.9 63 16 130/49 100 Nasal Cannula 2.0 96.9 02/20/18 04:00 63 02/20/18 03:00 57 14 116/51 100 Nasal Cannula 2.0 02/20/18 02:00 59 12 122/51 100 Nasal Cannula 2.0 02/20/18 01:00 57 12 116/49 100 Nasal Cannula 2.0 02/20/18 00:00 96.6 58 13 121/49 100 Nasal Cannula 2.0 96.6 02/20/18 00:00 57 02/19/18 23:00 56 12 109/51 100 Nasal Cannula 2.0 02/19/18 22:00 56 12 105/47 100 Nasal Cannula 2.0 02/19/18 21:00 58 13 117/61 100 Nasal Cannula 2.0 02/19/18 20:00 Nasal Cannula 2.0 28 02/19/18 20:00 57 02/19/18 20:00 100 Nasal Cannula 2.0 28 02/19/18 20:00 97.8 57 14 117/61 100 97.8 02/19/18 18:24 51 16 93/42 100 02/19/18 15:46 96.8 50 18 91/48 100 96.8 Height (Feet): 5 Height (Inches): 9.00 Weight (Pounds): 190 General Appearance: no acute distress, other - alert and responsive HEENT: normocephalic, atraumatic, anicteric Respiratory/Chest: lungs clear, normal breath sounds, no respiratory distress, no accessory muscle use Cardiovascular: normal rate, regular rhythm, no gallop/murmur, no JVD Abdomen: normal bowel sounds, soft, non tender, no organomegaly, non distended Genitourinary: other - + fried - urine Extremities: other - left foot covered Skin: no rash 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 This is worrisome for osteomyelitis Evidence of soft tissue cellulitis of the first digit with an inferomedial soft tissue ulcer adjacent to the first metatarsophalangeal joint. More generalized edema of the forefoot also is demonstrated. More localized fluid collection dorsal to the first metatarsophalangeal joint could represent a small soft tissue abscess Small signal voids in the soft tissues adjacent to the first metatarsal could represent gas bubbles and therefore raise concern for infection with gas-forming organism Findings discussed by phone with Dr. Ortiz at the time of interpretation MRI of cervical Spine - Impression: Evidence of epidural abscess predominantly to the right of midline posterior to the C5-6 and C6-7 discs. There is thickening of the epidural fat with enhancement cephalad and to the left of this is well, consistent with infection/phlegmon Evidence of significant spinal stenosis with cord compression extending from the level of the C3-4 disc to the bottom of C7, also previously described, due to combination of disc degeneration and protrusion, short pedicles, and exacerbated by the suspected epidural abscess/inflammation. Note that on further review of the previous study, suspected myelomalacia from C3-4 to C7 seen on the prior exam is probably real Prevertebral enhancement extending from C2-3 to C7-T1, consistent with prevertebral cellulitis. Anterior to C5-6, there is evidence of a 9 x 12 x 18 mm prevertebral abscess No significant enhancement of the C5-6 and C6-7 discs, and only very mild enhancement of the adjacent vertebral bodies. Nonetheless, given the above findings, findings on the earlier exam remain suspicious for C5-6 discitis and adjacent osteomyelitis , and to a lesser extent suspicious for C6-7 discitis and possible adjacent osteomyelitis MRI brain - report noted Microbiology Date/Time Source Procedure Growth Status 02/18/18 09:10 Blood Blood Culture - Preliminary Staphylococcus Aureus Resulted 02/18/18 09:05 Blood Blood Culture - Preliminary Staphylococcus Aureus Resulted 02/19/18 08:08 Foot Left Gram Stain - Final Resulted 02/19/18 08:08 Aerobic Culture - Preliminary Gram Negative Bacillus 1 Resulted 02/19/18 08:08 Foot Left Anaerobic Culture Pending Resulted Laboratory Tests Test 02/19/18 15:13 02/19/18 19:35 02/19/18 19:55 02/20/18 04:00 Arterial Blood pH 7.351 (7.350-7.450) 7.397 (7.350-7.450) Arterial Blood Partial Pressure CO2 47.2 mmHg (35.0-45.0) H 42.0 mmHg (35.0-45.0) Arterial Blood Partial Pressure O2 102.2 mmHg (75.0-100.0) H 117.9 mmHg (75.0-100.0) H Arterial Blood HCO3 25.5 mmol/L (22.0-26.0) 25.3 mmol/L (22.0-26.0) Arterial Blood Oxygen Saturation 96.0 % (92.0-98.0) 96.9 % (92.0-98.0) Arterial Blood Base Excess -0.1 0.4 Vijay Test Positive Positive Sodium Level 134 MMOL/L (136-145) L 133 MMOL/L (136-145) L Potassium Level 4.2 MMOL/L (3.5-5.1) 4.3 MMOL/L (3.5-5.1) Chloride Level 98 MMOL/L (98-107) 96 MMOL/L (98-107) L Carbon Dioxide Level 27 MMOL/L (21-32) 26 MMOL/L (21-32) Anion Gap 9 mmol/L (5-15) 11 mmol/L (5-15) Blood Urea Nitrogen 86 mg/dL (7-18) H 95 mg/dL (7-18) H Creatinine 5.0 MG/DL (0.55-1.30) H 5.2 MG/DL (0.55-1.30) H Estimat Glomerular Filtration Rate 10.5 mL/min (>60) 10.1 mL/min (>60) Glucose Level 198 MG/DL (74-106) H 182 MG/DL (74-106) H Calcium Level 8.0 MG/DL (8.5-10.1) L 8.4 MG/DL (8.5-10.1) L White Blood Count 26.7 K/UL (4.8-10.8) *H Red Blood Count 2.52 M/UL (4.20-5.40) L Hemoglobin 6.7 G/DL (12.0-16.0) *L Hematocrit 19.9 % (37.0-47.0) L Mean Corpuscular Volume 79 FL (80-99) L Mean Corpuscular Hemoglobin 26.7 PG (27.0-31.0) L Mean Corpuscular Hemoglobin Concent 33.8 G/DL (32.0-36.0) Red Cell Distribution Width 15.8 % (11.6-14.8) H Platelet Count 180 K/UL (150-450) Mean Platelet Volume 8.9 FL (6.5-10.1) Neutrophils (%) (Auto) % (45.0-75.0) Lymphocytes (%) (Auto) % (20.0-45.0) Monocytes (%) (Auto) % (1.0-10.0) Eosinophils (%) (Auto) % (0.0-3.0) Basophils (%) (Auto) % (0.0-2.0) Differential Total Cells Counted 100 Neutrophils % (Manual) 91 % (45-75) H Lymphocytes % (Manual) 6 % (20-45) L Monocytes % (Manual) 3 % (1-10) Eosinophils % (Manual) 0 % (0-3) Basophils % (Manual) 0 % (0-2) Band Neutrophils 0 % (0-8) Platelet Estimate Adequate Platelet Morphology Normal Hypochromasia 1+ Anisocytosis 1+ Uric Acid 11.7 MG/DL (2.6-7.2) H Phosphorus Level 8.8 MG/DL (2.5-4.9) H Magnesium Level 2.7 MG/DL (1.8-2.4) H Total Bilirubin 0.5 MG/DL (0.2-1.0) Aspartate Amino Transf (AST/SGOT) 20 U/L (15-37) Alanine Aminotransferase (ALT/SGPT) 42 U/L (12-78) Alkaline Phosphatase 152 U/L (46-116) H Pro-B-Type Natriuretic Peptide 1716 pg/mL (0-125) H Total Protein 6.7 G/DL (6.4-8.2) Albumin 1.4 G/DL (3.4-5.0) L Globulin 5.3 g/dL Albumin/Globulin Ratio 0.3 (1.0-2.7) L Random Vancomycin Level 18.7 ug/mL Test 02/20/18 08:05 White Blood Count 25.8 K/UL (4.8-10.8) *H Red Blood Count 2.26 M/UL (4.20-5.40) L Hemoglobin 6.0 G/DL (12.0-16.0) *L Hematocrit 18.0 % (37.0-47.0) L Mean Corpuscular Volume 80 FL (80-99) Mean Corpuscular Hemoglobin 26.5 PG (27.0-31.0) L Mean Corpuscular Hemoglobin Concent 33.3 G/DL (32.0-36.0) Red Cell Distribution Width 14.7 % (11.6-14.8) Platelet Count 176 K/UL (150-450) Mean Platelet Volume 7.6 FL (6.5-10.1) Neutrophils (%) (Auto) % (45.0-75.0) Lymphocytes (%) (Auto) % (20.0-45.0) Monocytes (%) (Auto) % (1.0-10.0) Eosinophils (%) (Auto) % (0.0-3.0) Basophils (%) (Auto) % (0.0-2.0) Differential Total Cells Counted 100 Neutrophils % (Manual) 88 % (45-75) H Lymphocytes % (Manual) 4 % (20-45) L Monocytes % (Manual) 6 % (1-10) Eosinophils % (Manual) 1 % (0-3) Basophils % (Manual) 0 % (0-2) Band Neutrophils 1 % (0-8) Platelet Estimate Adequate Platelet Morphology Normal Hypochromasia 1+ Anisocytosis 1+ Current Medications Medications (Trade) Dose Ordered Sig/Marlena Route PRN Reason Start Time Stop Time Status Last Admin Dose Admin Acetaminophen (Tylenol) 650 mg Q4H PRN ORAL Mild Pain (Pain Scale 1-3) 02/19/18 21:00 03/16/18 20:59 02/20/18 11:55 Acetaminophen (Tylenol) 650 mg Q4H PRN RECTAL fever 02/19/18 21:00 03/16/18 20:59 Allopurinol (Zyloprim) 100 mg DAILY ORAL 02/20/18 09:00 03/21/18 11:59 02/20/18 08:52 Amlodipine Besylate (Norvasc) 2.5 mg DAILY ORAL 02/20/18 09:00 03/16/18 08:59 02/20/18 08:50 Bisacodyl (Dulcolax) 10 mg HSPRN PRN RECTAL Constipation 02/19/18 21:00 03/21/18 20:59 Dextrose (Dextrose 50%) STAT PRN IV Hypoglycemia 02/19/18 21:00 03/21/18 20:59 Docusate Sodium (Colace) 100 mg TID ORAL 02/19/18 21:00 03/21/18 20:59 02/20/18 08:49 Gabapentin (Neurontin) 300 mg BEDTIME ORAL 02/19/18 21:00 03/17/18 20:59 Heparin Sodium (Porcine) (Heparin 5000 units/ml) 5,000 units EVERY 12 HOURS SUBQ 02/19/18 21:00 03/16/18 08:59 02/20/18 08:53 Insulin Aspart (NovoLOG) BEFORE MEALS AND HS SUBQ 02/19/18 21:00 03/16/18 18:29 02/20/18 12:03 Insulin Aspart (NovoLOG) 6 units NOVOTIAC SUBQ 02/20/18 06:30 03/21/18 18:29 02/20/18 12:03 Insulin Detemir (Levemir) 34 units Q24H SUBQ 02/20/18 18:30 03/16/18 18:29 Lansoprazole (Prevacid) 30 mg DAILY ORAL 02/20/18 09:00 03/17/18 08:59 02/20/18 08:51 Meropenem 500 mg/ Dextrose 55 ml @ 110 mls/hr Q24H IVPB 02/20/18 09:30 02/25/18 09:29 02/20/18 12:28 Morphine Sulfate (Morphine Sulfate) 4 mg Q6H PRN IVP Severe Pain(see instructions) 02/19/18 21:00 02/26/18 20:59 Ondansetron HCl (Zofran) 4 mg Q6H PRN IVP Nausea & Vomiting 02/19/18 21:00 03/21/18 20:59 Sevelamer Carbonate (Renvela) 800 mg THREE TIMES A DAY ORAL 02/20/18 09:00 03/21/18 18:59 02/20/18 11:53 Tramadol HCl (Ultram) 50 mg Q4H PRN ORAL moderate pain 02/19/18 21:00 02/21/18 20:59 Tramadol HCl (Ultram) 100 mg Q6H PRN ORAL severe pain 02/19/18 21:00 02/26/18 20:59 Vancomycin HCl (Vanco rx to dose) 1 ea DAILYPRN PRN MISC Per rx protocol 02/19/18 21:00 03/21/18 20:59 CHAPITO DENISE Feb 20, 2018 14:57
--- NOTE | 2018-02-20 15:36 | Cardiac Electrophysiology PN ---
Assessment/Plan Status Narrative MRI Spine Impression: Evidence of epidural abscess predominantly to the right of midline posterior to the C5-6 and C6-7 discs. There is thickening of the epidural fat with enhancement cephalad and to the left of this is well, consistent with infection/phlegmon Evidence of significant spinal stenosis with cord compression extending from the level of the C3-4 disc to the bottom of C7, also previously described, due to combination of disc degeneration and protrusion, short pedicles, and exacerbated by the suspected epidural abscess/inflammation. Note that on further review of the previous study, suspected myelomalacia from C3-4 to C7 seen on the prior exam is probably real Prevertebral enhancement extending from C2-3 to C7-T1, consistent with prevertebral cellulitis. Anterior to C5-6, there is evidence of a 9 x 12 x 18 mm prevertebral abscess No significant enhancement of the C5-6 and C6-7 discs, and only very mild enhancement of the adjacent vertebral bodies. Nonetheless, given the above findings, findings on the earlier exam remain suspicious for C5-6 discitis and adjacent osteomyelitis , and to a lesser extent suspicious for C6-7 discitis and possible adjacent osteomyelitis Enhancement of the soft tissues posterior and lateral to the C5-C7 posterior elements, likely representing cellulitis Assessment/Plan 1. Hypertension. Blood pressure is currently stable on Norvasc 2.5 mg daily and p.r.n. clonidine. Her echocardiogram showed ejection fraction of 55%. No chest pain. No prior congestive heart failure. 2. C5-C7 severe spinal stenosis with epidural abscess/discitis causing cord compression. 3. ESRD.New. Had only one HD via Right IJ on 02/18. 4. Diabetic foot ulcer osteomyelitis. The patient is on IV antibiotic. S/P Excisional debridement of right foot DM ulcer and Incision and drainage of left foot abscess deep to fascia on 02/19/18 5. Severe peripheral vascular disease. Prior to vascular surgery and angiogram , the patient would need nuclear stress test for her risk stratification. 6. Sepsis with white count of 30,000 with gram-positive bacteremia with 3 positive blood cultures YONATHAN after neck stabilization 7. Elevated liver function test. 8. Insulin-dependent diabetes with diabetic neuropathy. 9. Hyperlipidemia. NATE RN and Dr Godwin and patient sister and RN at bedside. Subjective Subjective Has 3 positive blood cultures. Had Excisional debridement of right foot DM ulcer to level of subq and Incision and drainage of left foot abscess deep to fascia. YONATHAN not done yet. Transferred to ICU as cant move arms or legs. MRI showed C5-C7 severe spinal stenosis with epidural abscess/discitis causing cord compression. Objective Last 24 Hour Vital Signs Date Time Temp Pulse Resp B/P (MAP) Pulse Ox O2 Delivery O2 Flow Rate FiO2 02/20/18 11:53 208.0 64 22 97 02/20/18 08:50 69 117/43 02/20/18 08:00 97.5 66 15 117/43 100 Nasal Cannula 2.0 97.5 02/20/18 07:00 60 12 105/68 100 Nasal Cannula 2.0 02/20/18 06:00 65 15 109/39 100 Nasal Cannula 2.0 02/20/18 05:00 63 16 110/42 100 Nasal Cannula 2.0 02/20/18 04:00 96.9 63 16 130/49 100 Nasal Cannula 2.0 96.9 02/20/18 04:00 63 02/20/18 03:00 57 14 116/51 100 Nasal Cannula 2.0 02/20/18 02:00 59 12 122/51 100 Nasal Cannula 2.0 02/20/18 01:00 57 12 116/49 100 Nasal Cannula 2.0 02/20/18 00:00 96.6 58 13 121/49 100 Nasal Cannula 2.0 96.6 02/20/18 00:00 57 02/19/18 23:00 56 12 109/51 100 Nasal Cannula 2.0 02/19/18 22:00 56 12 105/47 100 Nasal Cannula 2.0 02/19/18 21:00 58 13 117/61 100 Nasal Cannula 2.0 02/19/18 20:00 Nasal Cannula 2.0 28 02/19/18 20:00 57 02/19/18 20:00 100 Nasal Cannula 2.0 28 02/19/18 20:00 97.8 57 14 117/61 100 97.8 02/19/18 18:24 51 16 93/42 100 02/19/18 15:46 96.8 50 18 91/48 100 96.8 Intake and Output 02/19/18 02/20/18 19:00 07:00 Intake Total 695 ml 300 ml Output Total 195 ml 70 ml Balance 500 ml 230 ml Intake Oral 240 ml 300 ml IV Total 455 ml Output Urine Total 175 ml 70 ml Peritoneal Dialysis UF 20 ml Laboratory Tests Test 02/19/18 19:35 02/19/18 19:55 02/20/18 04:00 02/20/18 08:05 Arterial Blood pH 7.397 (7.350-7.450) Arterial Blood Partial Pressure CO2 42.0 mmHg (35.0-45.0) Arterial Blood Partial Pressure O2 117.9 mmHg (75.0-100.0) H Arterial Blood HCO3 25.3 mmol/L (22.0-26.0) Arterial Blood Oxygen Saturation 96.9 % (92.0-98.0) Arterial Blood Base Excess 0.4 Vijay Test Positive Sodium Level 134 MMOL/L (136-145) L 133 MMOL/L (136-145) L Potassium Level 4.2 MMOL/L (3.5-5.1) 4.3 MMOL/L (3.5-5.1) Chloride Level 98 MMOL/L (98-107) 96 MMOL/L (98-107) L Carbon Dioxide Level 27 MMOL/L (21-32) 26 MMOL/L (21-32) Anion Gap 9 mmol/L (5-15) 11 mmol/L (5-15) Blood Urea Nitrogen 86 mg/dL (7-18) H 95 mg/dL (7-18) H Creatinine 5.0 MG/DL (0.55-1.30) H 5.2 MG/DL (0.55-1.30) H Estimat Glomerular Filtration Rate 10.5 mL/min (>60) 10.1 mL/min (>60) Glucose Level 198 MG/DL (74-106) H 182 MG/DL (74-106) H Calcium Level 8.0 MG/DL (8.5-10.1) L 8.4 MG/DL (8.5-10.1) L White Blood Count 26.7 K/UL (4.8-10.8) *H 25.8 K/UL (4.8-10.8) *H Red Blood Count 2.52 M/UL (4.20-5.40) L 2.26 M/UL (4.20-5.40) L Hemoglobin 6.7 G/DL (12.0-16.0) *L 6.0 G/DL (12.0-16.0) *L Hematocrit 19.9 % (37.0-47.0) L 18.0 % (37.0-47.0) L Mean Corpuscular Volume 79 FL (80-99) L 80 FL (80-99) Mean Corpuscular Hemoglobin 26.7 PG (27.0-31.0) L 26.5 PG (27.0-31.0) L Mean Corpuscular Hemoglobin Concent 33.8 G/DL (32.0-36.0) 33.3 G/DL (32.0-36.0) Red Cell Distribution Width 15.8 % (11.6-14.8) H 14.7 % (11.6-14.8) Platelet Count 180 K/UL (150-450) 176 K/UL (150-450) Mean Platelet Volume 8.9 FL (6.5-10.1) 7.6 FL (6.5-10.1) Neutrophils (%) (Auto) % (45.0-75.0) % (45.0-75.0) Lymphocytes (%) (Auto) % (20.0-45.0) % (20.0-45.0) Monocytes (%) (Auto) % (1.0-10.0) % (1.0-10.0) Eosinophils (%) (Auto) % (0.0-3.0) % (0.0-3.0) Basophils (%) (Auto) % (0.0-2.0) % (0.0-2.0) Differential Total Cells Counted 100 100 Neutrophils % (Manual) 91 % (45-75) H 88 % (45-75) H Lymphocytes % (Manual) 6 % (20-45) L 4 % (20-45) L Monocytes % (Manual) 3 % (1-10) 6 % (1-10) Eosinophils % (Manual) 0 % (0-3) 1 % (0-3) Basophils % (Manual) 0 % (0-2) 0 % (0-2) Band Neutrophils 0 % (0-8) 1 % (0-8) Platelet Estimate Adequate Adequate Platelet Morphology Normal Normal Hypochromasia 1+ 1+ Anisocytosis 1+ 1+ Uric Acid 11.7 MG/DL (2.6-7.2) H Phosphorus Level 8.8 MG/DL (2.5-4.9) H Magnesium Level 2.7 MG/DL (1.8-2.4) H Total Bilirubin 0.5 MG/DL (0.2-1.0) Aspartate Amino Transf (AST/SGOT) 20 U/L (15-37) Alanine Aminotransferase (ALT/SGPT) 42 U/L (12-78) Alkaline Phosphatase 152 U/L (46-116) H Pro-B-Type Natriuretic Peptide 1716 pg/mL (0-125) H Total Protein 6.7 G/DL (6.4-8.2) Albumin 1.4 G/DL (3.4-5.0) L Globulin 5.3 g/dL Albumin/Globulin Ratio 0.3 (1.0-2.7) L Random Vancomycin Level 18.7 ug/mL Microbiology Date/Time Source Procedure Growth Status 02/18/18 09:10 Blood Blood Culture - Preliminary Staphylococcus Aureus Resulted 02/18/18 09:05 Blood Blood Culture - Preliminary Staphylococcus Aureus Resulted 02/19/18 08:08 Foot Left Gram Stain - Final Resulted 02/19/18 08:08 Aerobic Culture - Preliminary Gram Negative Bacillus 1 Resulted 02/19/18 08:08 Foot Left Anaerobic Culture Pending Resulted Objective HEAD AND NECK: Cervical collar on LUNGS: Clear. CARDIOVASCULAR: Regular S1 and S2 with no gallop or murmur. ABDOMEN: Obese. EXTREMITIES: Bilateral foot ulcers, s/p surgery. Gustabo Concepcion MD Feb 20, 2018 15:36
--- NOTE | 2018-02-20 16:12 | Cardiology Report ---
APPROVED REPORT EKG Measurement Heart [id number] Sinus bradycardia with 1st degree AV block Nonspecific T wave abnormality Abnormal ECG
[2018-02-20] MEDS ORDERED: NS 275ml ONE ×2 (16:44→17:49)
[2018-02-20] MEDS ORDERED: Tubing IV Secondary IV ONE ×2 (16:44→17:20)
[2018-02-20] MEDS ORDERED: Tubing Blood Filter IV ONE (17:49)
[2018-02-20] MEDS ORDERED: Levemir Flexpen SUBQ SCH ×2 (18:30)
--- NOTE | 2018-02-20 23:24 | General Progress Note ---
Assessment/Plan Assessment/Plan 1. Leukocytosis, likely secondary to osteomyelitis, Staph aureus bacteremia as well. --> No evidence of leukemia at this time. --> Normal differential besides neutrophilia noted. Labs have been reviewed. --> Continue broad-spectrum antibiotics as per ID Service. --> Continue to closely monitor. Discussed with primary team. 2. Anemia due to underlying chronic disease. --> Hemoglobin levels dropped overnight, pending Blood transfusion --> Closely monitor. Anemia workup from before has been reviewed. --> Iron 29, TIBC 115, B12 >2000, Folate 12, TSH 0.991 --> Trend cbc daily. --> Transfusion if symptomatic or hemoglobin <7 3. Coagulopathy, likely related to decreased p.o. intake. --> Decreased albumin. Closely monitor per primary team. --> Consider administration of vitamin K in the case of patient bleeding. 4. Left foot gangrene with clinical osteomyelitis. Consider foot debridement and drainage per Podiatry team. --> Antibiotics as per ID Service. Closely monitor per Podiatry recommendations. 5. Cellulitis of left lower extremity. She is on broad-spectrum antibiotics Subjective Date patient seen: Feb 20, 2018 Constitutional: Denies: no symptoms, chills, diaphoresis, fever, malaise, weakness, other HEENT: Denies: no symptoms, eye pain, blurred vision, tearing, double vision, ear pain, ear discharge, nose pain, nose congestion, throat pain, throat swelling, mouth pain, mouth swelling, other Cardiovascular: Denies: no symptoms, chest pain, edema, irregular heart rate, lightheadedness, palpitations, syncope, other Respiratory: Denies: no symptoms, cough, orthopnea, shortness of breath, SOB with excertion, SOB at rest, sputum, stridor, wheezing, other Gastrointestinal/Abdominal: Denies: no symptoms, abdomen distended, abdominal pain, black stools, tarry stools, blood in stool, constipated, diarrhea, difficulty swallowing, nausea, poor appetite, poor fluid intake, rectal bleeding , vomiting, other Genitourinary: Denies: no symptoms, burning, discharge, frequency, flank pain, hematuria, incontinence, pain, urgency, other Neurologic/Psychiatric: Denies: no symptoms, anxiety, depressed, emotional problems, headache, numbness, paresthesia, pre-existing deficit, seizure, tingling, tremors, weakness, other Hematologic/Lymphatic: Reports: anemia Allergies: Coded Allergies: No Known Allergies (Unverified , 12/10/17) Subjective Lethargic. Wbc count elevated. Hgb levels dropped overnight. Pending prbc Objective Last 24 Hour Vital Signs Date Time Temp Pulse Resp B/P (MAP) Pulse Ox O2 Delivery O2 Flow Rate FiO2 02/20/18 17:00 75 14 126/43 100 Nasal Cannula 2.0 02/20/18 16:00 96.6 74 14 113/65 100 Nasal Cannula 2.0 96.6 02/20/18 15:00 72 14 122/42 100 Nasal Cannula 2.0 02/20/18 14:00 72 13 127/40 100 Nasal Cannula 2.0 02/20/18 13:00 67 13 118/53 100 Nasal Cannula 2.0 02/20/18 12:00 96.6 69 13 115/41 100 Nasal Cannula 2.0 96.6 02/20/18 11:53 208.0 64 22 97 02/20/18 09:00 68 15 123/48 100 Nasal Cannula 2.0 02/20/18 08:50 69 117/43 02/20/18 08:00 97.5 66 15 117/43 100 Nasal Cannula 2.0 97.5 02/20/18 07:00 60 12 105/68 100 Nasal Cannula 2.0 02/20/18 06:00 65 15 109/39 100 Nasal Cannula 2.0 02/20/18 05:00 63 16 110/42 100 Nasal Cannula 2.0 02/20/18 04:00 96.9 63 16 130/49 100 Nasal Cannula 2.0 96.9 02/20/18 04:00 63 02/20/18 03:00 57 14 116/51 100 Nasal Cannula 2.0 02/20/18 02:00 59 12 122/51 100 Nasal Cannula 2.0 02/20/18 01:00 57 12 116/49 100 Nasal Cannula 2.0 02/20/18 00:00 96.6 58 13 121/49 100 Nasal Cannula 2.0 96.6 02/20/18 00:00 57 Intake and Output 02/19/18 02/20/18 19:00 07:00 Intake Total 695 ml 300 ml Output Total 195 ml 70 ml Balance 500 ml 230 ml Intake Oral 240 ml 300 ml IV Total 455 ml Output Urine Total 175 ml 70 ml Peritoneal Dialysis UF 20 ml Laboratory Tests 02/20/18 04:00: White Blood Count 26.7*H, Red Blood Count 2.52L, Hemoglobin 6.7*L, Hematocrit 19.9L, Mean Corpuscular Volume 79L, Mean Corpuscular Hemoglobin 26.7L, Mean Corpuscular Hemoglobin Concent 33.8, Red Cell Distribution Width 15.8H, Platelet Count 180, Mean Platelet Volume 8.9, Neutrophils (%) (Auto) , Lymphocytes (%) (Auto) , Monocytes (%) (Auto) , Eosinophils (%) (Auto) , Basophils (%) (Auto) , Differential Total Cells Counted 100, Neutrophils % ( Manual) 91H, Lymphocytes % (Manual) 6L, Monocytes % (Manual) 3, Eosinophils % ( Manual) 0, Basophils % (Manual) 0, Band Neutrophils 0, Platelet Estimate Adequate, Platelet Morphology Normal, Hypochromasia 1+, Anisocytosis 1+, Sodium Level 133L, Potassium Level 4.3, Chloride Level 96L, Carbon Dioxide Level 26, Anion Gap 11, Blood Urea Nitrogen 95H, Creatinine 5.2H, Estimat Glomerular Filtration Rate 10.1, Glucose Level 182H, Uric Acid 11.7H, Calcium Level 8.4L, Phosphorus Level 8.8H, Magnesium Level 2.7H, Total Bilirubin 0.5, Aspartate Amino Transf (AST/SGOT) 20, Alanine Aminotransferase (ALT/SGPT) 42, Alkaline Phosphatase 152H, Pro-B-Type Natriuretic Peptide 1716H, Total Protein 6.7, Albumin 1.4L, Globulin 5.3, Albumin/Globulin Ratio 0.3L, Random Vancomycin Level 18.7 02/20/18 08:05: White Blood Count 25.8*H, Red Blood Count 2.26L, Hemoglobin 6.0*L, Hematocrit 18.0L, Mean Corpuscular Volume 80, Mean Corpuscular Hemoglobin 26.5L, Mean Corpuscular Hemoglobin Concent 33.3, Red Cell Distribution Width 14.7, Platelet Count 176, Mean Platelet Volume 7.6, Neutrophils (%) (Auto) , Lymphocytes (%) ( Auto) , Monocytes (%) (Auto) , Eosinophils (%) (Auto) , Basophils (%) (Auto) , Differential Total Cells Counted 100, Neutrophils % (Manual) 88H, Lymphocytes % (Manual) 4L, Monocytes % (Manual) 6, Eosinophils % (Manual) 1, Basophils % ( Manual) 0, Band Neutrophils 1, Platelet Estimate Adequate, Platelet Morphology Normal, Hypochromasia 1+, Anisocytosis 1+ Height (Feet): 5 Height (Inches): 9.00 Weight (Pounds): 190 General Appearance: lethargic Respiratory/Chest: decreased breath sounds Abdomen: soft Norman Boothe MD Feb 20, 2018 23:24
--- NOTE | 2018-02-23 18:20 | Cardiology Report ---
APPROVED REPORT EKG Measurement Heart [id number] ID [id number] Normal sinus rhythm Septal infarct, age undetermined Abnormal ECG
--- NOTE | 2018-02-27 13:15 | Discharge Summary ---
Discharge Summary Hospital Course Date of Admission Feb 13, 2018 at 22:30 Date of Discharge Feb 20, 2018 at 17:50 Admitting Diagnosis diabetic ulcer left foot Reason for Hospitalization: diabetic foot ulcer HPI 67y/o female with pmh of uncontrolled DM2 on insulin c/b neuropathy, HTN, HLD who presents with L>R foot wounds/ulcers. Pt states she has been having worsening symptoms for the past few days. Notes foul drainage from L foot wound. Notes increased L foot pain. Denies f/c, n/v, d/c, chest pain, SOB, abd pain. In ED, pt noted to have L foot ulcer likely 2/2 diabetic. L foot x-ray showed medial soft tissue ulcer. Labs showed leukocytosis to 14K. Pt given vanco, zosyn and flagyl in ER. Labs also showed SCr 3.5, unknown baseline. Pt also with elevated LFTs. Consultations Podiatry, Infectious disease, Vascular surgery, Neurology, Cardiology, Nephrology Hospital Course Pt was admitted and seen podiatry and ID. She was continued on broad-spectrum IV antibiotics. Pt had MRI L foot which showed evidence of osteomyelitis, abscess, cellulitis. She underwent bedside L foot wound washout/debridement by podiatry on 02/14/18. Pt also found to have MRSA bacteremia. Arterial duplex showed severe ischemia at rest of LLE. Vascular surgery recommended LLE angiogram. Given unable to do at [facility], pt was placed on transfer list at [facility] for higher level of care. Pt with persistent leukocytosis and bacteremia. She also developed CARLOS on CKD with ATN and was initiated on hemodialysis. She underwent excisional debridement of right foot DM ulcer to level of subq, incision and drainage of left foot abscess deep to fascia, and excisional debridement of left foot DM ulcer to level of bone by podiatry on 02/19/18. Pt then noted to have sudden R>L upper extremity weakness as as we BLE weakness. She was seen by neurology MRI brain was neg and MRI C spine w/o contrast showed possible small epidural abscess. Multiple spine surgeons were consulted at [facility] and all stated that they were unavailable. Repeat MRI C spine w/ contrast the next day showed concern for cord compression. Pt was transferred to [facility] emergently for higher level of care. Discharge physical exam: General: well developed, well nourished, no acute distress, other - soft neck collar Heart: RRR, no m/r/g Lungs: CTAB Abd: soft, NT/ND, NABS Head: normocophalic, atraumatic Neck: other - tender upper neck Mental Status: awake, alert, oriented x4, normal cognition, other - some time drowsy Speech: normal speech Language: normal language, no aphasia Cranial Nerve II: fundus normal, visual molina, no papilledema Cranial Nerves III, IV, : PERRLA, EOMI, pupils Cranial Nerve V: normal facial sensations, temporales function normal, masseters function normal, pterygoids function normal Cranial Nerve VII: no facial asymmetry, normal facial expressions Cranial Nerve VIII: normal hearing, no nystagmus Cranial Nerve IX: normal palate elevation, gag response Cranial Nerve X: no voice hoarseness Cranial Nerve XI: SCM symmetric, trapezii function normal Cranial Nerve XII: tongue midline, no tongue atrophy/fasciculations Motor System: normal muscle tone, no involuntary movement, no muscle wasting, other - 0/5 BLE and RUE, L wrist drop, 3/5 L arm Sensory: other - loss of pain upper chest and down/BLE , normal both UE Coordination: other Deep Tendon Reflexes: 0 bicep (L), 0 bicep (R), 0 tricep (L), 0 tricep (R), 0 brachioradialis (L), 0 brachioradialis (R), 0 knee (L), 0 knee (R), 0 ankle (L) , 0 ankle (R) Reflexes: mute plantar (L), mute plantar (R) Discharge diagnoses: 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 Acute paralysis Sepsis ICD Codes: A41.9 - Sepsis, unspecified organism (3) Persistent MRSA bacteremia ICD Codes: R78.81 - Bacteremia Osteomyelitis of first proximal phalanx and head of the first metatarsal L>R foot diabetic ulcers L foot abscess L foot dry gangrene Cellulitis of left lower extremity ICD Codes: L03.116 - Cellulitis of left lower limb CARLOS on CKD ATN Elevated LFTs likely 2/2 sepsis ICD Codes: R79.89 - Other specified abnormal findings of blood chemistry SNOMED: [id number], [id number] Urinary retention Assessment & Plan: Possibly 2/2 neurogenic bladder given diabetes ICD Codes: R33.9 - Retention of urine, unspecified Severe ischemia at rest of LLE Severe peripheral arterial disease ICD Codes: I73.9 - Peripheral vascular disease, unspecified Uncontrolled insulin dependent diabetes mellitus ICD Codes: E11.9 - Type 2 diabetes mellitus without complications; Z79.4 - skilled nursing (current) use of insulin Diabetic neuropathy ICD Codes: E11.40 - Type 2 diabetes mellitus with diabetic neuropathy, unspecified HTN (hypertension) ICD Codes: I10 - Essential (primary) hypertension HLD (hyperlipidemia) ICD Codes: E78.5 - Hyperlipidemia, unspecified Hyponatremia ICD Codes: E87.1 - Hypo-osmolality and hyponatremia Hypokalemia ICD Codes: E87.6 - Hypokalemia Discharge Condition Upon Discharge: critical Discharge Disposition Patient was emergently transferred to [facility] for higher level of care Angel Corbin M.D. Feb 27, 2018 13:15
== END 2018-02-20 17:50 | disposition short-term general hospital (02) | DRG 853 ==
LOC: EMR 21:35 → 4W 22:30 → EDBEDREQ 23:33 → 2W 02-19 17:12 → ICU 02-19 20:14
PROC: 5A1D70Z Performance of Urinary Filtration, Intermittent, Less than 6 Hours Per Day (ICD-10-PCS; principal; 2018-02-18)
PROC: 05HN33Z Insertion of Infusion Device into Left Internal Jugular Vein, Percutaneous Approach (ICD-10-PCS; principal; 2018-02-18)
PROC: 0JBQ0ZZ Excision of Right Foot Subcutaneous Tissue and Fascia, Open Approach (ICD-10-PCS; 2018-02-19)
PROC: 0J9R0ZZ Drainage of Left Foot Subcutaneous Tissue and Fascia, Open Approach (ICD-10-PCS; 2018-02-19)
DX: A41.02 Sepsis due to Methicillin resistant Staphylococcus aureus (principal); G06.1 Intraspinal abscess and granuloma; G82.50 Quadriplegia, unspecified; N17.0 Acute kidney failure with tubular necrosis; I70.262 Atherosclerosis of native arteries of extremities with gangrene, left leg; I12.0 Hypertensive chronic kidney disease with stage 5 chronic kidney disease or end stage renal disease; E11.52 Type 2 diabetes mellitus with diabetic peripheral angiopathy with gangrene; D68.9 Coagulation defect, unspecified; N18.5 Chronic kidney disease, stage 5; L03.116 Cellulitis of left lower limb; G95.9 Disease of spinal cord, unspecified; E87.1 Hypo-osmolality and hyponatremia; M86.172 Other acute osteomyelitis, left ankle and foot; L97.428 Non-pressure chronic ulcer of left heel and midfoot with other specified severity; L97.418 Non-pressure chronic ulcer of right heel and midfoot with other specified severity; E11.40 Type 2 diabetes mellitus with diabetic neuropathy, unspecified; E11.621 Type 2 diabetes mellitus with foot ulcer; Z79.4 Long term (current) use of insulin; R33.9 Retention of urine, unspecified; D64.9 Anemia, unspecified; B95.62 Methicillin resistant Staphylococcus aureus infection as the cause of diseases classified elsewhere; I70.291 Other atherosclerosis of native arteries of extremities, right leg; E11.22 Type 2 diabetes mellitus with diabetic chronic kidney disease; E11.65 Type 2 diabetes mellitus with hyperglycemia; E88.09 Other disorders of plasma-protein metabolism, not elsewhere classified; M20.10 Hallux valgus (acquired), unspecified foot; M79.7 Fibromyalgia; M46.42 Discitis, unspecified, cervical region; E87.6 Hypokalemia; E11.69 Type 2 diabetes mellitus with other specified complication; N31.9 Neuromuscular dysfunction of bladder, unspecified
CPT/HCPCS: 36415; 36569; 36600; 70551; 71045; 72141; 72142; 76700; 76770; 76937; 80048; 80053; 80061; 80076; 80202; 81003; 82248; 82550; 82570; 82607; 82728; 82746; 82803; 82962; 82977; 83036; 83540; 83550; 83605; 83735; 83880; 84100; 84300; 84443; 84484; 84550; 85007; 85025; 85610; 85651; 85730; 86140; 86705; 86709; 86803; 86850; 86900; 86901; 86920; 87040; 87070; 87075; 87086; 87181; 87205; 87340; 89050; 93005; 93306; 93925; 94003; 94150; 94760; 99285; A9585; J1815; J2250; J2405; J8499; S5561